=== PATIENT | male | born 1965 | race Two or more races ===

== ENCOUNTER 2017-07-09 11:39 | Inpatient (IN) | payer OTHER ==
[2017-07-09] MEDS ORDERED: SODIUM CHLORIDE 0.9% 1,000 ML IV STA (11:42)
[2017-07-09] MEDS ORDERED: ALBUTEROL NEBULIZED 2.5 MG/3 ML INHALATION STA (11:42)
[2017-07-09] MEDS ORDERED: methylPREDNISolone SOD SUCCI 125 MG/2 ML VIAL IV STA (11:42)
--- NOTE | 2017-07-09 11:53 | ED ---
General Adult HPI - General Chief complaint: Shortness of Breath Stated complaint: Diff Breathing Time Seen by Provider: 07/09/17 11:42 Source: patient, EMS, RN notes reviewed Mode of arrival: EMS Limitations: physical limitation - History of Present Illness Initial comments: 52-year-old male with history of emphysema and current tobacco use presents with a one-week history of cough and congestion. Patient has had a productive cough white sputum. Also subjective chills, patient is additional past medical history of hypertension. He denies chest pain. Patient was given SciMed roll, and DuoNeb by EMS prior to arrival. According to EMS he was hypoxic in the low 80s. Patient denies abdominal pain. Denies chest pain. - Related Data Home Medications Medication Instructions Recorded Confirmed Albuterol Nebulized [Ventolin 2.5 mg INHALATION RT-QID PRN 07/09/17 07/09/17 Nebulized] Aspirin EC [Ecotrin Low Dose] 81 mg PO HS 07/09/17 07/09/17 Atenolol [Tenormin] 100 mg PO BID 07/09/17 07/09/17 Ergocalciferol (Vitamin D2) 50,000 unit PO Q7D 07/09/17 07/09/17 [Vitamin D2] Lisinopril [Zestril] 5 mg PO DAILY 07/09/17 07/09/17 [place]-3 Fatty Acids/Fish Oil [Fish 1 cap PO DAILY 07/09/17 07/09/17 Oil 1,000 mg Softgel] Allergies Allergy/AdvReac Type Severity Reaction Status Date / Time No Known Allergies Allergy Verified 07/09/17 12:58 Review of Systems ROS Statement: Those systems with pertinent positive or pertinent negative responses have been documented in the HPI. ROS Other: All systems not noted in ROS Statement are negative. Past Medical History Past Medical History: COPD, Hypertension History of Any Multi-Drug Resistant Organisms: None Reported Past Surgical History: No Surgical Hx Reported Past Psychological History: No Psychological Hx Reported Smoking Status: Former smoker Past Alcohol Use History: None Reported, Occasional Past Drug Use History: Marijuana General Exam Limitations: physical limitation General appearance: alert, in distress Head exam: Present: atraumatic, normocephalic Eye exam: Present: normal appearance, PERRL ENT exam: Present: normal exam, mucous membranes dry Respiratory exam: Present: respiratory distress, wheezes, accessory muscle use, decreased breath sounds, prolonged expiratory Cardiovascular Exam: Present: normal rhythm, tachycardia GI/Abdominal exam: Present: soft. Absent: distended, tenderness, guarding Extremities exam: Present: normal inspection, normal capillary refill. Absent: pedal edema, calf tenderness Back exam: Present: normal inspection Neurological exam: Present: alert, oriented X3. Absent: motor sensory deficit Psychiatric exam: Present: normal affect, normal mood Skin exam: Present: warm, dry, intact. Absent: cyanosis, diaphoretic Course Vital Signs 07/09/17 07/09/17 07/09/17 11:41 11:49 12:12 Temperature 100.7 F H Pulse Rate 78 69 Respiratory 28 H Rate Blood Pressure 135/89 O2 Sat by Pulse 93 L 92 L Oximetry 07/09/17 07/09/17 12:30 13:22 Temperature 100.5 F H Pulse Rate 70 70 Respiratory 18 Rate Blood Pressure 125/85 O2 Sat by Pulse 91 L Oximetry EKG Findings - EKG Comments: EKG Findings:: EKG shows normal sinus rhythm, ventricular rate 69, DC interval 160, QRS duration 104, QTC 435, no signs of ST segment elevation or depression Medical Decision Making - Medical Decision Making 52-year-old male with history of emphysema presented with a one-week history of worsening cough and difficulty breathing. No chest pain. Patient is in moderate respiratory distress upon arrival. Noted to be febrile. Respiratory rate in the high 20s. Patient has decreased air entry with faint end expiratory wheeze. Chest x-ray is obtained, shows possible pulmonary vascular congestion versus atypical infection, infiltrate the lung bases. White blood cell count is 12.4. Hemoglobin stable. Initial troponin is 0.033, which is less than threshold for normal, however in this patient with no known CAD and elevated BNP, there is concern for new onset heart failure given the pulmonary vascular congestion on chest x-ray. Patient states he did receive a workup for lower extremity swelling approximately one year ago at [facility]. He says at that time there was no sign of heart failure. Troponin level will be trended. Patient is given Lasix and aspirin in the emergency department. EKG is nonischemic. He is also started on antibiotics including azithromycin for atypical pneumonia and COPD exacerbation. He was given nebulized albuterol and Atrovent and degree steroids. Diagnosis: COPD exacerbation, acquired pneumonia, concern for new onset heart failure - Lab Data Result diagrams: 07/09/17 12:00 07/09/17 12:00 Lab Results 07/09/17 07/09/17 07/09/17 Range/Units 12:00 12:00 12:00 WBC 12.4 H (3.8-10.6) k/uL RBC 4.42 (4.30-5.90) m/uL Hgb 14.5 (13.0-17.5) gm/dL Hct 44.2 (39.0-53.0) % MCV 100.0 (80.0-100.0) fL MCH 32.7 (25.0-35.0) pg MCHC 32.7 (31.0-37.0) g/dL RDW 15.8 H (11.5-15.5) % Plt Count 209 (150-450) k/uL Neutrophils % 84 % Lymphocytes % 7 % Monocytes % 7 % Eosinophils % 0 % Basophils % 0 % Neutrophils # 10.4 H (1.3-7.7) k/uL Lymphocytes # 0.9 L (1.0-4.8) k/uL Monocytes # 0.8 (0-1.0) k/uL Eosinophils # 0.0 (0-0.7) k/uL Basophils # 0.0 (0-0.2) k/uL Poikilocytosis Slight Macrocytosis Slight PT (9.0-12.0) sec INR (<1.2) APTT (22.0-30.0) sec Sodium 141 (137-145) mmol/L Potassium 4.8 (3.5-5.1) mmol/L Chloride 104 (98-107) mmol/L Carbon Dioxide 30 (22-30) mmol/L Anion Gap 7 mmol/L BUN 14 (9-20) mg/dL Creatinine 0.60 L (0.66-1.25) mg/dL Est GFR (MDRD) Af Amer >60 (>60 ml/min/1.73 sqM) Est GFR (MDRD) Non-Af >60 (>60 ml/min/1.73 sqM) Glucose 100 H (74-99) mg/dL Calcium 9.3 (8.4-10.2) mg/dL Total Bilirubin 0.8 (0.2-1.3) mg/dL AST 28 (17-59) U/L ALT 55 (21-72) U/L Alkaline Phosphatase 114 (38-126) U/L Total Creatine Kinase 130 (55-170) U/L CK-MB (CK-2) 4.1 H* (0.0-2.4) ng/mL CK-MB (CK-2) Rel Index 3.2 Troponin I 0.033 (0.000-0.034) ng/mL NT-Pro-B Natriuret Pep pg/mL Total Protein 7.2 (6.3-8.2) g/dL Albumin 4.1 (3.5-5.0) g/dL 07/09/17 07/09/17 Range/Units 12:00 12:00 WBC (3.8-10.6) k/uL RBC (4.30-5.90) m/uL Hgb (13.0-17.5) gm/dL Hct (39.0-53.0) % MCV (80.0-100.0) fL MCH (25.0-35.0) pg MCHC (31.0-37.0) g/dL RDW (11.5-15.5) % Plt Count (150-450) k/uL Neutrophils % % Lymphocytes % % Monocytes % % Eosinophils % % Basophils % % Neutrophils # (1.3-7.7) k/uL Lymphocytes # (1.0-4.8) k/uL Monocytes # (0-1.0) k/uL Eosinophils # (0-0.7) k/uL Basophils # (0-0.2) k/uL Poikilocytosis Macrocytosis PT 11.2 (9.0-12.0) sec INR 1.1 (<1.2) APTT 22.7 (22.0-30.0) sec Sodium (137-145) mmol/L Potassium (3.5-5.1) mmol/L Chloride (98-107) mmol/L Carbon Dioxide (22-30) mmol/L Anion Gap mmol/L BUN (9-20) mg/dL Creatinine (0.66-1.25) mg/dL Est GFR (MDRD) Af Amer (>60 ml/min/1.73 sqM) Est GFR (MDRD) Non-Af (>60 ml/min/1.73 sqM) Glucose (74-99) mg/dL Calcium (8.4-10.2) mg/dL Total Bilirubin (0.2-1.3) mg/dL AST (17-59) U/L ALT (21-72) U/L Alkaline Phosphatase (38-126) U/L Total Creatine Kinase (55-170) U/L CK-MB (CK-2) (0.0-2.4) ng/mL CK-MB (CK-2) Rel Index Troponin I (0.000-0.034) ng/mL NT-Pro-B Natriuret Pep 2890 pg/mL Total Protein (6.3-8.2) g/dL Albumin (3.5-5.0) g/dL Disposition Clinical Impression: Congestive heart failure, Acute exacerbation of chronic obstructive airways disease Disposition: ADMITTED IP TO THIS [facility] Condition: Stable Referrals: Jay Quezada DO [Primary Care Provider] - 1-2 days Decision to Admit Reason: Admit from EC Decision Date: 07/09/17 Decision Time: 13:39
[2017-07-09 12:19] LABS: Basophils % (A) 0 %; CH 33.3; CHCM 33.6; Eosinophils % (A) 0 %; HCT 44.2 % (39.0-53.0); HDW 3.85; HGB 14.5 gm/dL (13.0-17.5); Luc # (Auto) 0.18; Luc % (Auto) 2; Lymphocytes # (A) 0.9 k/uL (1.0-4.8); Lymphocytes % (A) 7 %; MCH 32.7 pg (25.0-35.0); MCHC 32.7 g/dL (31.0-37.0); Macrocytosis Slight; Mean Platelet Volume 8.2; Monocytes # (A) 0.8 k/uL (0-1.0); Monocytes % (A) 7 %; Neutrophils # (A) 10.4 k/uL (1.3-7.7); Neutrophils % (A) 84 %; Poikilocytosis Slight; RBC 4.42 m/uL (4.30-5.90); RDW 15.8 % (11.5-15.5); WBC 12.4 k/uL (3.8-10.6); WBC (Perox) 12.42
[2017-07-09 12:32] LABS: ALT 55 U/L (21-72); AST 28 U/L (17-59); Alkaline Phosphatase 114 U/L (38-126); Anion Gap 7 mmol/L; Blood Urea Nitrogen 14 mg/dL (9-20); Calcium 9.3 mg/dL (8.4-10.2); Carbon Dioxide 30 mmol/L (22-30); Chloride 104 mmol/L (98-107); Glucose 100 mg/dL (74-99); Non-African American GFR(MDRD) >60 (>60 ml/min/1.73 sqM); Potassium 4.8 mmol/L (3.5-5.1); Sodium 141 mmol/L (137-145); Total Bilirubin 0.8 mg/dL (0.2-1.3); Total Protein 7.2 g/dL (6.3-8.2)
--- NOTE | 2017-07-09 12:58 | XR ---
EXAMINATION TYPE: XR chest 2V DATE OF EXAM: 07/09/2017 COMPARISON: NONE TECHNIQUE: PA and lateral views submitted. HISTORY: Shortness of breath FINDINGS: Central interstitial pattern seen. Subsegmental changes at the lung bases with tiny effusion. No pneu mothorax. Heart size and prominent. Underlying COPD suggested. IMPRESSION: 1. Cardiomegaly correlate for COPD. 2. Subsegmental atelectasis or early infiltrate lung bases with tiny effusions. Mild central intersti tial edema or pneumonitis in the differential diagnosis. Opportunistic or atypical infection also in the differential diagnosis.
[2017-07-09 13:03] LABS: INR 1.1 (<1.2); Partial Thromboplastin Time 22.7 sec (22.0-30.0); Prothrombin Time 11.2 sec (9.0-12.0)
[2017-07-09 13:04] LABS: Troponin I 0.033 ng/mL (0.000-0.034)
[2017-07-09 13:10] LABS: Creatine Kinase MB 4.1 ng/mL (0.0-2.4)
[2017-07-09] MEDS ORDERED: ASPIRIN 325 MG TAB PO STA (13:17)
[2017-07-09] MEDS ORDERED: FUROSEMIDE 10 MG/ML 2 ML VIAL IV ONE (13:17)
[2017-07-09] MEDS ORDERED: ONDANSETRON 4 MG/2 ML VIAL IVP PRN (13:32)
[2017-07-09] MEDS ORDERED: NALOXONE 0.4 MG/ML 1 ML VIAL IV PRN (13:32)
[2017-07-09] MEDS ORDERED: AZITHROMYCIN 500 MG in SODIUM CHLORIDE 0.9% 250 ML IVPB STA (13:38)
[2017-07-09] MEDS: ACETAMINOPHEN TAB 325 MG TAB PO PRN (15:38)
[2017-07-09] MEDS: IPRATROPIUM-ALBUTEROL 3 ML NEB INHALATION PRN ×2 (16:57→20:11)
[2017-07-09 18:53] LABS: Troponin I 0.014 ng/mL (0.000-0.034)
[2017-07-09 18:55] LABS: Creatine Kinase MB 3.6 ng/mL (0.0-2.4)
[2017-07-10 00:24] LABS: Creatine Kinase 114 U/L (55-170)
[2017-07-10 00:37] LABS: Troponin I <0.012 ng/mL (0.000-0.034)
--- NOTE | 2017-07-10 00:44 | P.HPIM ---
History of Present Illness H&P Date: 07/09/17 Chief Complaint: Shortness of breath 52-year-old male with history of emphysema, hypertension and current tobacco use presents with a one-week history of cough and congestion. Patient has had a productive cough white sputum. Also subjective chills. He denies chest pain. Patient was given Solu-Medrol, and DuoNeb by EMS prior to arrival. According to EMS he was hypoxic in the low 80s. Patient denies abdominal pain. No nausea or vomiting. No recent travel or sick contacts. Patient denied any history of heart problems. But he did mention that he was given Lasix for lung condition at [facility]. Patient continued to smoke 1 pack per day. Chest x-ray in the emergency room showed COPD changes and bibasilar atelectasis and tiny effusion BNP 2890 Troponin 0.033 Patient is given a dose of Lasix in the ER and IV Solu-Medrol and duo nebs. Review of Systems CONSTITUTIONAL: Subjective fever, no malaise, no fatigue. HEENT: No recent visual problems or hearing problems. Denied any sore throat. CARDIOVASCULAR: No chest pain, orthopnea, PND, no palpitations, no syncope. PULMONARY: , Cough with whitish production and short of breath. no hemoptysis. GASTROINTESTINAL: No diarrhea, no nausea, no vomiting, no abdominal pain. Normoactive bowel sounds. NEUROLOGICAL: No headaches, no weakness, no numbness. HEMATOLOGICAL: Denies any bleeding or petechiae. GENITOURINARY: Denies any burning micturition, frequency, or urgency. MUSCULOSKELETAL/RHEUMATOLOGICAL: Denies any joint pain, swelling, or any muscle pain. ENDOCRINE: Denies any polyuria or polydipsia. The rest of the 14-point review of systems is negative. Past Medical History Past Medical History: COPD, Hypertension Additional Past Medical History / Comment(s): Pt states about 1 yr ago he had "water retention in my legs." He states he was seen at [facility] and was on lasix for awhile. Pt recently started using O2 at 2L/NC ATC. History of Any Multi-Drug Resistant Organisms: None Reported Past Surgical History: No Surgical Hx Reported Past Anesthesia/Blood Transfusion Reactions: Unable to Obtain Additional Past Anesthesia/Blood Transfusion Reaction / Comment(s): Pt has never had anesthesia. Smoking Status: Former smoker - Past Family History Mother Family Medical History: No Reported History Additional Family Medical History / Comment(s): Mother is healthy and is 75yrs old. Father Family Medical History: Vascular Disorder Additional Family Medical History / Comment(s): Father at the age of 60yrs a couple days after vascular surgery. Medications and Allergies Home Medications Medication Instructions Recorded Confirmed Type Albuterol Nebulized [Ventolin 2.5 mg INHALATION RT-QID PRN 07/09/17 07/09/17 History Nebulized] Ascorbic Acid [Vitamin C] 500 mg PO BID 07/09/17 07/09/17 History Aspirin EC [Ecotrin Low Dose] 81 mg PO HS 07/09/17 07/09/17 History Atenolol [Tenormin] 100 mg PO BID 07/09/17 07/09/17 History Cholecalciferol [Vitamin D3] 5,000 unit PO DAILY 07/09/17 07/09/17 History Cyanocobalamin (Vitamin B-12) 1,000 mcg PO DAILY 07/09/17 07/09/17 History [Vitamin B-12] Ergocalciferol (Vitamin D2) 50,000 unit PO WE 07/09/17 07/09/17 History [Vitamin D2] Lisinopril [Zestril] 5 mg PO DAILY 07/09/17 07/09/17 History Magnesium Oxide [Mag-Ox] 250 mg PO HS 07/09/17 07/09/17 History [place]-3 Fatty Acids/Fish Oil [Fish 1 cap PO DAILY 07/09/17 07/09/17 History Oil 1,000 mg Softgel] Allergies Allergy/AdvReac Type Severity Reaction Status Date / Time No Known Allergies Allergy Verified 07/09/17 12:58 Physical Exam Vitals: Vital Signs Temp Pulse Resp BP Pulse Ox 07/09/17 22:16 99.8 F H 73 18 125/84 93 L 07/09/17 20:22 88 18 150/58 97 07/09/17 20:11 88 07/09/17 19:24 99.1 F 92 18 133/60 92 L 07/09/17 18:10 99.2 F 82 18 154/92 92 L 07/09/17 17:08 74 07/09/17 16:57 72 07/09/17 15:36 100.6 F H 71 20 143/64 90 L 07/09/17 14:30 80 18 140/85 91 L 07/09/17 13:22 100.5 F H 70 18 125/85 91 L 07/09/17 12:30 70 07/09/17 12:12 69 07/09/17 11:49 92 L 07/09/17 11:41 100.7 F H 78 28 H 135/89 93 L Intake and Output 07/09/17 07/09/17 07/09/17 06:59 14:59 22:59 Output Total 1025 Balance -1025 Output: Urine 1025 Other: Weight 106.594 kg Patient Weight 07/10/17 06:59 Weight 106.594 kg PHYSICAL EXAMINATION: Patient is lying in the bed comfortably, mild distress, awake alert and oriented.. HEENT: Normocephalic. Neck is supple. Pupils reactive. Nostrils clear. Oral cavity is moist. Ears reveal no drainage. Neck reveals no JVD, carotid bruits, or thyromegaly. CHEST EXAMINATION: Trachea is central. Symmetrical expansion. Bilateral air entry diminished with diffuse wheezing and rhonchi. CARDIAC: Normal S1, S2 with no gallops. No murmurs ABDOMEN: Soft. Bowel sounds normal. Obese. No organomegaly. No abdominal bruits. Extremities 1+ edema. No clubbing or cyanosis Neurologically awake, alert, oriented x3 with well-coordinated movements. Skin: no rash or skin lesions Musculoskeletal: no joint swelling or deformity. Results CBC & Chem 7: 07/09/17 12:00 07/09/17 12:00 Labs: Abnormal Lab Results - Last 24 Hours (Table) 07/09/17 07/09/17 07/09/17 Range/Units 12:00 12:00 12:00 WBC 12.4 H (3.8-10.6) k/uL RDW 15.8 H (11.5-15.5) % Neutrophils # 10.4 H (1.3-7.7) k/uL Lymphocytes # 0.9 L (1.0-4.8) k/uL Creatinine 0.60 L (0.66-1.25) mg/dL Glucose 100 H (74-99) mg/dL CK-MB (CK-2) 4.1 H* (0.0-2.4) ng/mL 07/09/17 Range/Units 18:04 WBC (3.8-10.6) k/uL RDW (11.5-15.5) % Neutrophils # (1.3-7.7) k/uL Lymphocytes # (1.0-4.8) k/uL Creatinine (0.66-1.25) mg/dL Glucose (74-99) mg/dL CK-MB (CK-2) 3.6 H* (0.0-2.4) ng/mL Thrombosis Risk Factor Assmnt - DVT/VTE Prophylaxis DVT/VTE Prophylaxis: Pharmacologic Prophylaxis ordered - Choose All That Apply Any of the Below Risk Factors Present?: Yes Each Factor Represents 1 point: Abnormal pulmonary function (COPD), Age 41-60 years, Heart failure (<1month), Obesity (BMI >25), Serious lung disease incl. pneumonia (< 1month) Other Risk Factors: No Other congenital or acquired thrombophilia - If yes, enter type in comment: No Thrombosis Risk Factor Assessment Total Risk Factor Score: 5 Thrombosis Risk Factor Assessment Level: High Risk Assessment and Plan Plan: #1 acute COPD exacerbation #2 acute tracheobronchitis #2 nicotine addiction. counseled extensively #3 elevated BNP with possible acute CHF. Unknown ejection fraction #4 morbid obesity with BMI 35.7 #5 DVT prophylaxis Plan: Patient will be continued on antibiotics breathing treatments and prednisone by mouth. Will get 2-D echocardiogram and follow closely. Further recommendations based on the clinical course. Patient was counseled extensively for smoking cessation. Time with Patient: Greater than 30
[2017-07-10 00:48] LABS: Creatine Kinase MB 3.6 ng/mL (0.0-2.4)
[2017-07-10 06:44] LABS: Anisocytosis Slight; Basophils % (A) 0 %; CH 32.9; CHCM 32.3; Eosinophils % (A) 0 %; HCT 44.7 % (39.0-53.0); HDW 3.87; HGB 14.2 gm/dL (13.0-17.5); Hypochromasia Slight; Luc # (Auto) 0.21; Luc % (Auto) 2; Lymphocytes # (A) 0.9 k/uL (1.0-4.8); Lymphocytes % (A) 6 %; MCH 32.6 pg (25.0-35.0); MCHC 31.7 g/dL (31.0-37.0); MCV 102.9 fL (80.0-100.0); Macrocytosis Slight; Mean Platelet Volume 8.3; Monocytes # (A) 1.1 k/uL (0-1.0); Monocytes % (A) 8 %; Neutrophils # (A) 11.7 k/uL (1.3-7.7); Neutrophils % (A) 84 %; Poikilocytosis Slight; RBC 4.34 m/uL (4.30-5.90); WBC 13.9 k/uL (3.8-10.6); WBC (Perox) 14.01
[2017-07-10 07:38] LABS: ALT 48 U/L (21-72); AST 37 U/L (17-59); Alkaline Phosphatase 111 U/L (38-126); Anion Gap 10 mmol/L; Blood Urea Nitrogen 22 mg/dL (9-20); Calcium 9.8 mg/dL (8.4-10.2); Carbon Dioxide 29 mmol/L (22-30); Chloride 105 mmol/L (98-107); Glucose 129 mg/dL (74-99); Non-African American GFR(MDRD) >60 (>60 ml/min/1.73 sqM); Potassium 5.7 mmol/L (3.5-5.1); Sodium 144 mmol/L (137-145); Total Bilirubin 0.7 mg/dL (0.2-1.3); Total Protein 7.5 g/dL (6.3-8.2)
[2017-07-10] MEDS: IPRATROPIUM-ALBUTEROL 3 ML NEB INHALATION PRN (09:09)
--- NOTE | 2017-07-10 09:17 | P.CRDCN ---
History of Present Illness Consult date: 07/10/17 Chief complaint: Shortness of breath History of present illness: This is a pleasant 52-year-old gentleman with a past medical history significant for obesity, hypertension, and COPD presented to the hospital complaining of shortness of breath. The patient describes symptoms of exertional dyspnea as well as orthopnea. He also developed bilateral lower extremities edema. Over the last few days he has been experiencing cough productive of sputum. No fever and no chills. The patient is not aware of any prior cardiac history but he stated that he was admitted to [facility] over a year with symptoms of congestive heart failure. He has extensive history of smoking and he smoke one pack per day. The EKG showed sinus rhythm without any significant ST or T-wave abnormalities. The cardiac enzymes were checked and came in to be unremarkable. The BNP came in to be alleviated. The chest x-ray showed finding consistent with chronic changes as well as some vascular congestions. On physical examination the patient has extensive expiratory wheezing Past Medical History Past Medical History: COPD, Hypertension Additional Past Medical History / Comment(s): Pt states about 1 yr ago he had "water retention in my legs." He states he was seen at [facility] and was on lasix for awhile. Pt recently started using O2 at 2L/NC ATC. History of Any Multi-Drug Resistant Organisms: None Reported Past Surgical History: No Surgical Hx Reported Past Anesthesia/Blood Transfusion Reactions: Unable to Obtain Additional Past Anesthesia/Blood Transfusion Reaction / Comment(s): Pt has never had anesthesia. Smoking Status: Former smoker - Past Family History Mother Family Medical History: No Reported History Additional Family Medical History / Comment(s): Mother is healthy and is 75yrs old. Father Family Medical History: Vascular Disorder Additional Family Medical History / Comment(s): Father at the age of 60yrs a couple days after vascular surgery. Medications and Allergies Home Medications Medication Instructions Recorded Confirmed Type Albuterol Nebulized [Ventolin 2.5 mg INHALATION RT-QID PRN 07/09/17 07/09/17 History Nebulized] Ascorbic Acid [Vitamin C] 500 mg PO BID 07/09/17 07/09/17 History Aspirin EC [Ecotrin Low Dose] 81 mg PO HS 07/09/17 07/09/17 History Atenolol [Tenormin] 100 mg PO BID 07/09/17 07/09/17 History Cholecalciferol [Vitamin D3] 5,000 unit PO DAILY 07/09/17 07/09/17 History Cyanocobalamin (Vitamin B-12) 1,000 mcg PO DAILY 07/09/17 07/09/17 History [Vitamin B-12] Ergocalciferol (Vitamin D2) 50,000 unit PO WE 07/09/17 07/09/17 History [Vitamin D2] Lisinopril [Zestril] 5 mg PO DAILY 07/09/17 07/09/17 History Magnesium Oxide [Mag-Ox] 250 mg PO HS 07/09/17 07/09/17 History [place]-3 Fatty Acids/Fish Oil [Fish 1 cap PO DAILY 07/09/17 07/09/17 History Oil 1,000 mg Softgel] Allergies Allergy/AdvReac Type Severity Reaction Status Date / Time No Known Allergies Allergy Verified 07/09/17 12:58 Physical Exam Vitals: Vital Signs Temp Pulse Pulse Resp BP BP Pulse Ox 07/10/17 08:00 97.5 F L 83 139/71 88 L 07/10/17 04:00 98.2 F 76 18 146/70 91 L 07/09/17 23:57 98.1 F 85 20 151/75 90 L 07/09/17 22:16 99.8 F H 73 18 125/84 93 L 07/09/17 20:22 88 18 150/58 97 07/09/17 20:11 88 07/09/17 19:24 99.1 F 92 18 133/60 92 L 07/09/17 18:10 99.2 F 82 18 154/92 92 L 07/09/17 17:08 74 07/09/17 16:57 72 07/09/17 15:36 100.6 F H 71 20 143/64 90 L 07/09/17 14:30 80 18 140/85 91 L 07/09/17 13:22 100.5 F H 70 18 125/85 91 L 07/09/17 12:30 70 07/09/17 12:12 69 07/09/17 11:49 92 L 07/09/17 11:41 100.7 F H 78 28 H 135/89 93 L Intake and Output 07/09/17 07/10/17 07/10/17 22:59 06:59 14:59 Intake Total 400 236 Output Total 1025 Balance -1025 400 236 Intake: IV 400 Sodium Chloride 0.9% 1, 400 000 ml @ 50 mls/hr IV . Q20H STA Rx#:[id number] Oral 236 Output: Urine 1025 Other: Weight 108 kg - Constitutional General appearance: no acute distress - Respiratory Respiratory: bilateral: wheezing - Cardiovascular Rhythm: regular Heart sounds: normal: S1, S2 Results 07/10/17 06:08 07/10/17 07:10 Cardiac Enzymes 07/09/17 07/09/17 07/09/17 Range/Units 12:00 12:00 18:04 AST 28 (17-59) U/L CK-MB (CK-2) 4.1 H* 3.6 H* (0.0-2.4) ng/mL Troponin I 0.033 0.014 (0.000-0.034) ng/mL 07/09/17 07/10/17 Range/Units 23:47 07:10 AST 37 (17-59) U/L CK-MB (CK-2) 3.6 H* (0.0-2.4) ng/mL Troponin I <0.012 (0.000-0.034) ng/mL Coagulation 07/09/17 Range/Units 12:00 PT 11.2 (9.0-12.0) sec APTT 22.7 (22.0-30.0) sec CBC 07/09/17 07/10/17 Range/Units 12:00 06:08 WBC 12.4 H 13.9 H (3.8-10.6) k/uL RBC 4.42 4.34 (4.30-5.90) m/uL Hgb 14.5 14.2 (13.0-17.5) gm/dL Hct 44.2 44.7 (39.0-53.0) % Plt Count 209 202 (150-450) k/uL Comprehensive Metabolic Panel 07/09/17 07/10/17 Range/Units 12:00 07:10 Sodium 141 144 (137-145) mmol/L Potassium 4.8 5.7 H (3.5-5.1) mmol/L Chloride 104 105 (98-107) mmol/L Carbon Dioxide 30 29 (22-30) mmol/L BUN 14 22 H (9-20) mg/dL Creatinine 0.60 L 0.69 (0.66-1.25) mg/dL Glucose 100 H 129 H (74-99) mg/dL Calcium 9.3 9.8 (8.4-10.2) mg/dL AST 28 37 (17-59) U/L ALT 55 48 (21-72) U/L Alkaline Phosphatase 114 111 (38-126) U/L Total Protein 7.2 7.5 (6.3-8.2) g/dL Albumin 4.1 4.3 (3.5-5.0) g/dL Current Medications Generic Name Dose Route Start Last Admin Trade Name Freq PRN Reason Stop Dose Admin Acetaminophen 650 mg 07/09/17 13:32 07/09/17 15:38 Tylenol Tab PO 650 mg Q6HR PRN Administration Mild Pain or Fever > 100.5 Albuterol/Ipratropium 3 ml 07/09/17 13:32 07/10/17 09:09 Duoneb 0.5 Mg-3 Mg/3 Ml Soln INHALATION 3 ml RT-Q4H PRN Administration Shortness Of Breath Or Wheezing Azithromycin 500 mg/ Sodium 250 mls @ 125 mls/hr 07/10/17 12:00 Chloride IVPB DAILY@1200 JACQUE Ceftriaxone Sodium 1,000 mg/ 50 mls @ 100 mls/hr 07/10/17 09:00 07/10/17 09: 01 Sodium Chloride IVPB 100 mls/hr Q24HR JACQUE Administration Naloxone HCl 0.2 mg 07/09/17 13:32 Narcan IV Q2M PRN Opioid Reversal Ondansetron HCl 4 mg 07/09/17 13:32 Zofran IVP Q8HR PRN Nausea And Vomiting Prednisone 40 mg 07/10/17 09:00 PO DAILY JACQUE Intake and Output 07/09/17 07/10/17 07/10/17 22:59 06:59 14:59 Intake Total 400 236 Output Total 1025 Balance -1025 400 236 Intake: IV 400 Sodium Chloride 0.9% 1, 400 000 ml @ 50 mls/hr IV . Q20H STA Rx#:[id number] Oral 236 Output: Urine 1025 Other: Weight 108 kg 07/10/17 06:08 07/10/17 07:10 Assessment and Plan Plan: This is a pleasant 52-year-old gentleman hypertension as OB the as well as significant history of smoking who was admitted to the hospital was acute respiratory failure. I do feel that the patient has a component of congestive heart failure in addition to COPD exacerbation. I will start the patient on IV diuretics. One end of the kidney function and electrolytes. Beside that I will obtain an echocardiogram was Doppler to assess the LV function. We'll check the TSH. Continue following up with him.
[2017-07-10] MEDS: predniSONE 20 MG TAB PO SCH (12:59)
[2017-07-10] MEDS: ATENOLOL 50 MG TAB PO SCH ×2 (13:00→19:53)
[2017-07-10] MEDS: LISINOPRIL 5 MG TAB PO SCH (13:00)
[2017-07-10] MEDS: NICOTINE 21MG/24HR PATCH TRANSDERM SCH (13:00)
[2017-07-10] MEDS: AZITHROMYCIN 500 MG in SODIUM CHLORIDE 0.9% 250 ML IVPB SCH (13:01)
[2017-07-10] MEDS: guaiFENesin-DM 100-10MG/5ML 10 ML CUP PO PRN (14:00)
[2017-07-10] MEDS: ALBUTEROL NEBULIZED 2.5 MG/3 ML INHALATION SCH ×2 (15:32→20:44)
[2017-07-10] MEDS: FUROSEMIDE 10 MG/ML 4 ML VIAL IV SCH (19:53)
[2017-07-10] MEDS: ASPIRIN 81 MG PO SCH (19:53)
[2017-07-10] MEDS: ACETAMINOPHEN TAB 325 MG TAB PO PRN (19:56)
--- NOTE | 2017-07-10 23:34 | P.PN ---
Subjective Principal diagnosis: Acute COPD exacerbation 52-year-old male with history of emphysema, hypertension and current tobacco use presents with a one-week history of cough and congestion. Patient has had a productive cough white sputum. Also subjective chills. He denies chest pain. Patient was given Solu-Medrol, and DuoNeb by EMS prior to arrival. According to EMS he was hypoxic in the low 80s. Patient denies abdominal pain. No nausea or vomiting. No recent travel or sick contacts. Patient denied any history of heart problems. But he did mention that he was given Lasix for lung condition at [facility]. Patient continued to smoke 1 pack per day. Chest x-ray in the emergency room showed COPD changes and bibasilar atelectasis and tiny effusion BNP 2890 Troponin 0.033 Patient is given a dose of Lasix in the ER and IV Solu-Medrol and duo nebs. 07/10/2017 Patient's breathing status improved but still having diffuse wheezing. Patient was started on Lasix 40 mg twice daily. TTE was ordered. No complaints of chest pain. Patient is being continued on prednisone 40 mg daily along with breathing treatments. Current medications reviewed Objective - Vital Signs Vital signs: Vital Signs Temp 97.9 F 07/10/17 20:00 Pulse 76 07/10/17 20:54 Resp 20 07/10/17 20:00 BP 138/80 07/10/17 20:00 Pulse Ox 94 L 07/10/17 16:00 Intake & Output 07/10/17 07/10/17 07/11/17 06:59 18:59 06:59 Intake Total 400 1236 Output Total 325 Balance 75 1236 Weight 108 kg Intake: IV 400 200 Sodium Chloride 0.9% 1, 400 200 000 ml @ 50 mls/hr IV . Q20H STA Rx#:[id number] Intake, IV Titration 100 Amount cefTRIAXone 1,000 mg In 100 Sodium Chloride 0.9% 50 ml @ 100 mls/hr IVPB Q24HR JACQUE Rx#:[id number] Oral 936 Output: Urine 325 - Exam PHYSICAL EXAMINATION: Patient is lying in the bed comfortably, no acute distress, awake alert and oriented.. HEENT: Normocephalic. Neck is supple. Pupils reactive. Nostrils clear. Oral cavity is moist. Ears reveal no drainage. Neck reveals no JVD, carotid bruits, or thyromegaly. CHEST EXAMINATION: Trachea is central. Symmetrical expansion. Bilateral diffuse wheezing and rhonchi positive CARDIAC: Normal S1, S2 with no gallops. No murmurs ABDOMEN: Soft. Bowel sounds normal. No organomegaly. No abdominal bruits. Extremities trace edema. No clubbing or cyanosis Neurologically awake, alert, oriented x3 with well-coordinated movements. Skin: no rash or skin lesions Musculoskeletal: no joint swelling or deformity. - Labs CBC & Chem 7: 07/10/17 06:08 07/10/17 07:10 Labs: Abnormal Lab Results - Last 24 Hours (Table) 07/09/17 07/10/17 07/10/17 Range/Units 23:47 06:08 07:10 WBC 13.9 H (3.8-10.6) k/uL MCV 102.9 H (80.0-100.0) fL RDW 16.0 H (11.5-15.5) % Neutrophils # 11.7 H (1.3-7.7) k/uL Lymphocytes # 0.9 L (1.0-4.8) k/uL Monocytes # 1.1 H (0-1.0) k/uL Potassium 5.7 H (3.5-5.1) mmol/L BUN 22 H (9-20) mg/dL Glucose 129 H (74-99) mg/dL CK-MB (CK-2) 3.6 H* (0.0-2.4) ng/mL TSH (0.465-4.680) mIU/L 07/10/17 Range/Units 07:10 WBC (3.8-10.6) k/uL MCV (80.0-100.0) fL RDW (11.5-15.5) % Neutrophils # (1.3-7.7) k/uL Lymphocytes # (1.0-4.8) k/uL Monocytes # (0-1.0) k/uL Potassium (3.5-5.1) mmol/L BUN (9-20) mg/dL Glucose (74-99) mg/dL CK-MB (CK-2) (0.0-2.4) ng/mL TSH 0.295 L (0.465-4.680) mIU/L Assessment and Plan Plan: #1 acute COPD exacerbation #2 acute tracheobronchitis #2 nicotine addiction. counseled extensively #3 elevated BNP with possible acute CHF. Unknown ejection fraction. TTE pending #4 morbid obesity with BMI 35.7 #5 DVT prophylaxis Plan: Patient will be continued on antibiotics breathing treatments and prednisone by mouth. Continue with Lasix 40 mg every 12. Cardiology is following. Further recommendations based on the clinical course. Patient was counseled extensively for smoking cessation. Time with Patient: Greater than 30
[2017-07-10] MEDS: HEPARIN SODIUM,PORCINE 5,000 UNIT/ML 1 ML VIAL SQ SCH (23:46)
[2017-07-11] MEDS: guaiFENesin-DM 100-10MG/5ML 10 ML CUP PO PRN (03:03)
[2017-07-11 06:50] LABS: Basophils # (A) 0.1 k/uL (0-0.2); Basophils % (A) 0 %; CH 32.2; CHCM 30.7; Eosinophils % (A) 0 %; HCT 49.5 % (39.0-53.0); HDW 3.84; HGB 15.3 gm/dL (13.0-17.5); Hypochromasia Marked; Luc # (Auto) 0.36; Luc % (Auto) 2; Lymphocytes # (A) 2.4 k/uL (1.0-4.8); Lymphocytes % (A) 15 %; MCH 32.6 pg (25.0-35.0); MCHC 30.8 g/dL (31.0-37.0); MCV 105.8 fL (80.0-100.0); Macrocytosis Moderate; Mean Platelet Volume 7.4; Monocytes # (A) 1.2 k/uL (0-1.0); Monocytes % (A) 7 %; Neutrophils # (A) 12.4 k/uL (1.3-7.7); Neutrophils % (A) 76 %; Poikilocytosis Slight; RBC 4.68 m/uL (4.30-5.90); RDW 15.2 % (11.5-15.5); WBC 16.5 k/uL (3.8-10.6); WBC (Perox) 16.71
[2017-07-11 07:02] LABS: Anion Gap 8 mmol/L; Blood Urea Nitrogen 24 mg/dL (9-20); Calcium 9.8 mg/dL (8.4-10.2); Carbon Dioxide 33 mmol/L (22-30); Chloride 99 mmol/L (98-107); Glucose 85 mg/dL (74-99); Non-African American GFR(MDRD) >60 (>60 ml/min/1.73 sqM); Sodium 140 mmol/L (137-145)
[2017-07-11 07:11] LABS: Potassium 4.9 mmol/L (3.5-5.1)
[2017-07-11] MEDS: ALBUTEROL NEBULIZED 2.5 MG/3 ML INHALATION SCH ×4 (07:42→19:49)
[2017-07-11] MEDS: ATENOLOL 50 MG TAB PO SCH ×2 (09:26→20:32)
[2017-07-11] MEDS: HEPARIN SODIUM,PORCINE 5,000 UNIT/ML 1 ML VIAL SQ SCH ×2 (09:26→18:50)
[2017-07-11] MEDS: LISINOPRIL 5 MG TAB PO SCH (09:28)
[2017-07-11] MEDS: FUROSEMIDE 10 MG/ML 4 ML VIAL IV SCH ×2 (09:28→20:32)
[2017-07-11] MEDS: predniSONE 20 MG TAB PO SCH (09:29)
[2017-07-11] MEDS: NICOTINE 21MG/24HR PATCH TRANSDERM SCH (09:29)
--- NOTE | 2017-07-11 09:46 | P.PN ---
Subjective Principal diagnosis: Acute respiratory failure This is a pleasant 52-year-old gentleman with a past medical history significant for obesity, hypertension, and COPD presented to the hospital complaining of shortness of breath. The patient describes symptoms of exertional dyspnea as well as orthopnea. He also developed bilateral lower extremities edema. Over the last few days he has been experiencing cough productive of sputum. No fever and no chills. The patient is not aware of any prior cardiac history but he stated that he was admitted to [facility] over a year with symptoms of congestive heart failure. He has extensive history of smoking and he smoke one pack per day. The EKG showed sinus rhythm without any significant ST or T-wave abnormalities. The cardiac enzymes were checked and came in to be unremarkable. The BNP came in to be alleviated. The chest x-ray showed finding consistent with chronic changes as well as some vascular congestions. On physical examination the patient has extensive expiratory wheezing On follow-up with the patient today on 07/11/2017, the patient is feeling better indeterminable shortness of breath. He continues to have bilateral expiratory wheezing. He continues to be on diuretics IV. He lost 2 kg. The echocardiogram still pending. Objective - Vital Signs Vital signs: Vital Signs Temp 97.6 F 07/11/17 04:00 Pulse 96 07/11/17 07:51 Resp 18 07/11/17 04:00 BP 125/63 07/11/17 04:00 Pulse Ox 94 L 07/11/17 07:45 Intake & Output 07/10/17 07/11/17 07/11/17 18:59 06:59 18:59 Intake Total 1236 280 237 Output Total 400 Balance 1236 280 -163 Weight 106.5 kg Intake: IV 200 280 Sodium Chloride 0.9% 1, 200 280 000 ml @ 50 mls/hr IV . Q20H STA Rx#:[id number] Intake, IV Titration 100 Amount cefTRIAXone 1,000 mg In 100 Sodium Chloride 0.9% 50 ml @ 100 mls/hr IVPB Q24HR JACQUE Rx#:[id number] Oral 936 237 Output: Urine 400 - Constitutional General appearance: Present: no acute distress - Respiratory Respiratory: bilateral: wheezing - Cardiovascular Rhythm: regular Heart sounds: normal: S1, S2 - Labs CBC & Chem 7: 07/11/17 05:51 09/22/17 05:51 Labs: Abnormal Lab Results - Last 24 Hours (Table) 07/10/17 07/11/17 07/11/17 Range/Units 07:10 05:51 05:51 WBC 16.5 H (3.8-10.6) k/uL MCV 105.8 H (80.0-100.0) fL MCHC 30.8 L (31.0-37.0) g/dL Neutrophils # 12.4 H (1.3-7.7) k/uL Monocytes # 1.2 H (0-1.0) k/uL Carbon Dioxide 33 H (22-30) mmol/L BUN 24 H (9-20) mg/dL TSH 0.295 L (0.465-4.680) mIU/L Assessment and Plan Plan: This is a pleasant 52-year-old gentleman hypertension as OB the as well as significant history of smoking who was admitted to the hospital was acute respiratory failure. I do feel that the patient has a component of congestive heart failure in addition to COPD exacerbation. We will continue IV diuretics. Continue monitor the kidney function and electrolytes. On follow-up on the echocardiogram.
--- NOTE | 2017-07-11 11:00 | CDI ---
In responding to this query, please exercise your independent professional judgment. The [facility] Coding Staff and Clinical Documentation Specialists appreciate your assistance in clarifying documentation, maintaining compliance with coding guidelines, accurately documenting patients condition and capturing severity of illness. The fact that a question is asked does not imply that any particular answer is desired or expected. Communication forms are a method of clarifying documentation and are not made part of the Legal Health Record. Thank you in advance for your clarification. Last Revision, December 2015 Roberto Dinero [address] [place] [address] Documentation Clarification Form Date: 07/11/2017 10:18:00 AM From: Valorie Peterson Admit Date: 07/09/2017 1:32:00 PM Patient Name: Basilio Disla Visit Number: [id number] Discharge Date: Dr. Ankur Champagne The patient presented with one week history of cough and congestion difficulty in breathing. Nursing notes on 07/11/17 @ 06:09: Patient O2 sats 79 % on RA. Patient knocked O2 off while asleep approx. 20 minutes. Recovery time of approx. 3 min, 92 % 5/ L NC History/Risk Factors: COPD, Hypertension Tobacco use: Former smoker, Clinical Indicators: On admission in ED respiratory exam has present: respiratory distress, wheezes, accessory muscle use, decreased breath sounds, prolonged expiratory. EMS notes on prior arrival patient was hypoxic with low O2 80;s, Vital signs/Pulse oximetry: 135/89 78 28 100.7 93 % 4/L NC 9/1 % 4/L NC, 90 % 5 /L NC, 94 %, 5/L NC Chest x-ray: Cardiomegaly correlate for COPD, Subsegmental atelectasis or early infiltrate lung bases with tiny effusions mild central interstitial edema or pneumonititis. Lung/Breathing assessment: bilateral expiratory wheezing Treatment: Breathing TX per orders Monitor O2 Sat's (titrate) Azithromycin IV Rocephine IV Lasix IV Prednisone PO In your professional opinion, can you please clarify if these findings signify one of the following conditions? Acuity: o Acute o Chronic o Acute on Chronic Respiratory Status: o Respiratory failure o Respiratory failure with hypercapnia o Respiratory failure with hypoxia o Acute Respiratory Distress o Other Diagnosis, please specify o Unable to determine Please document in your progress notes and discharge summary in order to capture severity of illness and risk of mortality. Include clinical findings that support your diagnosis. FYI: Press F11 to launch patient chart. Place X here if this finding has no clinical significance, is not applicable or if you are not able to provide any additional documentation. TORIBIO
[2017-07-11] MEDS: ASPIRIN 81 MG PO SCH (20:32)
--- NOTE | 2017-07-11 21:46 | ECHOF ---
Referral Reason: MEASUREMENTS -------- HEIGHT: 172.7 cm WEIGHT: 108.0 kg BP: 139/71 RVIDd: 3.9 cm (< 3.3) IVSd: 1.4 cm (0.6 - 1.1) LVIDd: 4.3 cm (3.9 - 5.3) LVPWd: 1.3 cm (0.6 - 1.1) IVSs: 2.2 cm LVIDs: 2.6 cm LVPWs: 1.8 cm LA Diam: 3.8 cm (2.7 - 3.8) LAESV Index (A-L): 37.68 ml/m Ao Diam: 3.6 cm (2.0 - 3.7) AV Cusp: 2.4 cm (1.5 - 2.6) MV EXCURSION: 16.312 mm (> 18.000) MV EF SLOPE: 101 mm/s (70 - 150) EPSS: 0.2 cm MV E Jose: 1.16 m/s MV DecT: 219 ms MV A Jose: 0.86 m/s MV E/A Ratio: 1.35 AV maxP.73 mmHg AV meanP.31 mmHg RAP: 5.00 mmHg RVSP: 43.49 mmHg FINDINGS -------- Sinus rhythm. This was a technically good study. The left ventricular size is normal. There is moderate concentric left ventricular hypertrophy. Overall left ventricular systolic function is normal with, an EF between 60 - 65 %. The right ventricle is moderately enlarged. LA is moderately dilated 34-39 ml/m2 The right atrium is normal in size. Aortic valve is trileaflet and is mildly thickened. There is trace to mild mitral regurgitation. Mild tricuspid regurgitation present. Right ventricular systolic pressure is normal at < 35 mmHg. The pulmonic valve is normal. The aortic root size is normal. The inferior vena cava is mildly dilated. There is no pericardial effusion. CONCLUSIONS -------- 1. Sinus rhythm. 2. There is trace to mild mitral regurgitation. 3. Mild tricuspid regurgitation present. 4. Right ventricular systolic pressure is normal at < 35 mmHg. 5. The pulmonic valve is normal. 6. The aortic root size is normal. 7. The inferior vena cava is mildly dilated. 8. There is no pericardial effusion. 9. This was a technically good study. 10. The left ventricular size is normal. 11. There is moderate concentric left ventricular hypertrophy. 12. Overall left ventricular systolic function is normal with, an EF between 60 - 65 %. 13. The right ventricle is moderately enlarged. 14. LA is moderately dilated 34-39 ml/m2 15. The right atrium is normal in size. 16. Aortic valve is trileaflet and is mildly thickened. SCIENTIFIC RESEARCH MANAGER: Swetha Stanley RDCS
[2017-07-12] MEDS: guaiFENesin-DM 100-10MG/5ML 10 ML CUP PO PRN ×3 (00:18→23:42)
[2017-07-12] MEDS: AZITHROMYCIN 500 MG in SODIUM CHLORIDE 0.9% 250 ML IVPB SCH (01:17)
[2017-07-12] MEDS: ALBUTEROL NEBULIZED 2.5 MG/3 ML INHALATION SCH ×4 (08:32→19:43)
[2017-07-12] MEDS: ATENOLOL 50 MG TAB PO SCH ×2 (08:36→20:11)
[2017-07-12] MEDS: NICOTINE 21MG/24HR PATCH TRANSDERM SCH (08:36)
[2017-07-12] MEDS: HEPARIN SODIUM,PORCINE 5,000 UNIT/ML 1 ML VIAL SQ SCH ×4 (08:36→23:39)
[2017-07-12] MEDS: predniSONE 20 MG TAB PO SCH (08:37)
[2017-07-12] MEDS: FUROSEMIDE 10 MG/ML 4 ML VIAL IV SCH ×2 (08:37→20:12)
--- NOTE | 2017-07-12 09:03 | P.PN ---
Subjective Principal diagnosis: Acute respiratory failure This is a pleasant 52-year-old gentleman with a past medical history significant for obesity, hypertension, and COPD presented to the hospital complaining of shortness of breath. The patient describes symptoms of exertional dyspnea as well as orthopnea. He also developed bilateral lower extremities edema. Over the last few days he has been experiencing cough productive of sputum. No fever and no chills. The patient is not aware of any prior cardiac history but he stated that he was admitted to [facility] over a year with symptoms of congestive heart failure. He has extensive history of smoking and he smoke one pack per day. The EKG showed sinus rhythm without any significant ST or T-wave abnormalities. The cardiac enzymes were checked and came in to be unremarkable. The BNP came in to be alleviated. The chest x-ray showed finding consistent with chronic changes as well as some vascular congestions. On physical examination the patient has extensive expiratory wheezing On follow-up with the patient today on 07/12/2017, the patient is feeling better in term shortness of breath. He continues to have bilateral expiratory wheezing. Will continues to be on diuretics IV. He lost 3 kg. Echocardiogram showed normal LV function with hypertensive heart disease findings. Objective - Vital Signs Vital signs: Vital Signs Temp 97.6 F 07/12/17 08:20 Pulse 82 07/12/17 08:46 Resp 20 07/12/17 08:20 BP 124/71 07/12/17 08:20 Pulse Ox 94 L 07/12/17 08:34 Intake & Output 07/11/17 07/12/17 07/12/17 18:59 06:59 18:59 Intake Total 417 937 240 Output Total 1050 1900 Balance -633 -963 240 Weight 105.7 kg Intake: Oral 417 937 240 Output: Urine 1050 1900 Other: Voiding Method Toilet # Voids 1 - Constitutional General appearance: Present: no acute distress - Respiratory Respiratory: bilateral: wheezing - Cardiovascular Rhythm: regular Heart sounds: normal: S1, S2 - Labs CBC & Chem 7: 07/11/17 05:51 07/11/17 05:51 Assessment and Plan Plan: This is a pleasant 52-year-old gentleman hypertension as OB the as well as significant history of smoking who was admitted to the hospital was acute respiratory failure. I do feel that the patient has a component of congestive heart failure in addition to COPD exacerbation. We will continue IV diuretics. Continue monitor the kidney function and electrolytes.
[2017-07-12] MEDS: AZITHROMYCIN 500 MG TAB PO SCH (12:44)
[2017-07-12] MEDS: LISINOPRIL 5 MG TAB PO SCH (12:44)
[2017-07-12] MEDS: ASPIRIN 81 MG PO SCH (20:12)
[2017-07-13] MEDS: ALBUTEROL NEBULIZED 2.5 MG/3 ML INHALATION SCH ×4 (07:30→19:53)
[2017-07-13] MEDS: HEPARIN SODIUM,PORCINE 5,000 UNIT/ML 1 ML VIAL SQ SCH ×2 (07:40→16:32)
[2017-07-13] MEDS: FUROSEMIDE 10 MG/ML 4 ML VIAL IV SCH ×2 (07:41→20:01)
[2017-07-13] MEDS: ATENOLOL 50 MG TAB PO SCH ×2 (07:41→20:01)
[2017-07-13] MEDS: LISINOPRIL 5 MG TAB PO SCH (07:42)
[2017-07-13] MEDS: guaiFENesin-DM 100-10MG/5ML 10 ML CUP PO PRN (07:42)
[2017-07-13] MEDS: predniSONE 20 MG TAB PO SCH (07:42)
[2017-07-13] MEDS: NICOTINE 21MG/24HR PATCH TRANSDERM SCH (08:44)
[2017-07-13] MEDS: AZITHROMYCIN 500 MG TAB PO SCH (11:31)
[2017-07-13] MEDS: ASPIRIN 81 MG PO SCH (20:01)
[2017-07-13 23:58] VITALS: RESP 16; TEMP 97
--- NOTE | 2017-07-14 00:05 | P.PN ---
Subjective Principal diagnosis: Acute COPD exacerbation 52-year-old male with history of emphysema, hypertension and current tobacco use presents with a one-week history of cough and congestion. Patient has had a productive cough white sputum. Also subjective chills. He denies chest pain. Patient was given Solu-Medrol, and DuoNeb by EMS prior to arrival. According to EMS he was hypoxic in the low 80s. Patient denies abdominal pain. No nausea or vomiting. No recent travel or sick contacts. Patient denied any history of heart problems. But he did mention that he was given Lasix for lung condition at [facility]. Patient continued to smoke 1 pack per day. Chest x-ray in the emergency room showed COPD changes and bibasilar atelectasis and tiny effusion BNP 2890 Troponin 0.033 Patient is given a dose of Lasix in the ER and IV Solu-Medrol and duo nebs. 07/10/2017 Patient's breathing status improved but still having diffuse wheezing. Patient was started on Lasix 40 mg twice daily. TTE was ordered. No complaints of chest pain. Patient is being continued on prednisone 40 mg daily along with breathing treatments. 07/13/2017 Patient's breathing status is much improved now. Continued on IV Lasix. Patient denied any worsening short of breath or chest pain. Clinically improving. No nausea vomiting or abdominal pain. We will change Lasix to by mouth tomorrow and possible discharge. Monitor renal function. All other review of systems negative except above. Current medications reviewed Objective - Vital Signs Vital signs: Vital Signs Temp 98.2 F 07/13/17 15:00 Pulse 72 07/13/17 20:08 Resp 20 07/13/17 15:00 BP 115/86 07/13/17 15:00 Pulse Ox 90 L 07/13/17 15:00 Intake & Output 07/13/17 07/13/17 07/14/17 06:59 18:59 06:59 Intake Total 240 Output Total 750 Balance -750 240 Weight 105 kg 105 kg Intake: Oral 240 Output: Urine 750 Other: Voiding Method Toilet Toilet # Voids 1 2 1 - Exam PHYSICAL EXAMINATION: Patient is lying in the bed comfortably, no acute distress, awake alert and oriented.. HEENT: Normocephalic. Neck is supple. Pupils reactive. Nostrils clear. Oral cavity is moist. Ears reveal no drainage. Neck reveals no JVD, carotid bruits, or thyromegaly. CHEST EXAMINATION: Trachea is central. Symmetrical expansion. Bilateral air entry improved. Prolonged expiration. No wheezing CARDIAC: Normal S1, S2 with no gallops. No murmurs ABDOMEN: Soft. Bowel sounds normal. No organomegaly. No abdominal bruits. Extremities trace edema. No clubbing or cyanosis Neurologically awake, alert, oriented x3 with well-coordinated movements. Skin: no rash or skin lesions Musculoskeletal: no joint swelling or deformity. - Labs CBC & Chem 7: 07/11/17 05:51 07/11/17 05:51 Assessment and Plan Plan: #1 acute COPD exacerbation #2 acute tracheobronchitis #2 nicotine addiction. counseled extensively #3 elevated BNP with possible acute CHF with diastolic dysfunction. Ejection fraction 60-65%. #4 morbid obesity with BMI 35.7 #5 DVT prophylaxis Plan: Patient will be continued on antibiotics breathing treatments and prednisone by mouth. Continue with Lasix 40 mg every 12. Cardiology is following. Further recommendations based on the clinical course. Patient was counseled extensively for smoking cessation. Patient is clinically improving.
[2017-07-14 07:49] VITALS: BP 122/77
[2017-07-14] MEDS: ALBUTEROL NEBULIZED 2.5 MG/3 ML INHALATION SCH ×2 (09:04→11:52)
[2017-07-14] MEDS: FUROSEMIDE 10 MG/ML 4 ML VIAL IV SCH (09:12)
[2017-07-14] MEDS: ATENOLOL 50 MG TAB PO SCH (09:12)
[2017-07-14] MEDS: predniSONE 20 MG TAB PO SCH (09:13)
[2017-07-14] MEDS: NICOTINE 21MG/24HR PATCH TRANSDERM SCH (09:13)
[2017-07-14] MEDS: HEPARIN SODIUM,PORCINE 5,000 UNIT/ML 1 ML VIAL SQ SCH ×2 (09:13)
[2017-07-14] MEDS: LISINOPRIL 5 MG TAB PO SCH (09:14)
[2017-07-14 09:42] LABS: Basophils % (A) 0 %; CH 32.2; CHCM 31.6; Eosinophils # (A) 0.3 k/uL (0-0.7); Eosinophils % (A) 3 %; HCT 49.3 % (39.0-53.0); HDW 3.57; HGB 15.6 gm/dL (13.0-17.5); Hypochromasia Moderate; Luc # (Auto) 0.23; Luc % (Auto) 2; Lymphocytes # (A) 2.2 k/uL (1.0-4.8); Lymphocytes % (A) 20 %; MCH 32.4 pg (25.0-35.0); MCHC 31.7 g/dL (31.0-37.0); MCV 102.4 fL (80.0-100.0); Macrocytosis Slight; Mean Platelet Volume 7.1; Monocytes # (A) 0.9 k/uL (0-1.0); Monocytes % (A) 8 %; Neutrophils # (A) 7.1 k/uL (1.3-7.7); Neutrophils % (A) 66 %; Poikilocytosis Slight; RBC 4.81 m/uL (4.30-5.90); RDW 14.6 % (11.5-15.5); WBC 10.7 k/uL (3.8-10.6); WBC (Perox) 10.35
[2017-07-14 09:51] LABS: Anion Gap 9 mmol/L; Blood Urea Nitrogen 21 mg/dL (9-20); Calcium 9.8 mg/dL (8.4-10.2); Carbon Dioxide 35 mmol/L (22-30); Chloride 97 mmol/L (98-107); Glucose 156 mg/dL (74-99); Non-African American GFR(MDRD) >60 (>60 ml/min/1.73 sqM); Potassium 4.7 mmol/L (3.5-5.1); Sodium 141 mmol/L (137-145)
[2017-07-14] MEDS: AZITHROMYCIN 500 MG TAB PO SCH (11:55)
[2017-07-14 12:31] VITALS: PULSE 74
== END 2017-07-14 16:32 | disposition home or self-care (01) | DRG 190 ==
LOC: EC 11:39 → 6SEL 13:32 → 4MS4W 07-12 23:25
PROVIDERS: ADMIT Internal Medicine; ATTEND Internal Medicine
DX: J44.0 Chronic obstructive pulmonary disease with (acute) lower respiratory infection (principal); J96.01 Acute respiratory failure with hypoxia; I50.31 Acute diastolic (congestive) heart failure; J18.9 Pneumonia, unspecified organism; I11.0 Hypertensive heart disease with heart failure; E66.01 Morbid (severe) obesity due to excess calories; J44.1 Chronic obstructive pulmonary disease with (acute) exacerbation; J20.9 Acute bronchitis, unspecified; F17.200 Nicotine dependence, unspecified, uncomplicated; Z68.35 Body mass index [BMI] 35.0-35.9, adult; Z71.6 Tobacco abuse counseling; Z79.82 Long term (current) use of aspirin; Z79.899 Other long term (current) drug therapy; Z82.49 Family history of ischemic heart disease and other diseases of the circulatory system
CPT/HCPCS: 36415; 71020; 80048; 80053; 82550; 82553; 83880; 84439; 84443; 84484; 85025; 85610; 85730; 93005; 93306; 94640; 94760; 96361; 96365; 96366; 96367; 96375; 99285

== ENCOUNTER 2018-10-28 09:16 | Inpatient (IN) | payer OTHER ==
--- NOTE | 2018-10-28 09:27 | ED ---
SOB HPI - General Stated Complaint: Diff Breathing Time Seen by Provider: 10/28/18 09:23 Source: RN notes reviewed, old records reviewed - History of Present Illness Initial Comments: This is a 53-year-old male the ER for evaluation. This patient presents today for evaluation regards to severe shortness of breath, patient is accepted in transfer for COPD with respiratory failure. Patient also has underlying history of CHF denies current chest pain. Patient is still continuing with shortness of breath although oxygen is remain normal and stable he does feel improved from original presentation to other emergency room. Patient brought in by EMS, history otherwise obtained from EMS and patient's chart is complications patient is currently on BiPAP MD Complaint: shortness of breath, cough -: days(s) Radiation: other (No pain) Severity: severe Severity scale (1-10): 8 Quality: aching Consistency: constant Improves With: rest, other (BiPAP) Worsens With: exertion Known History Of: COPD, congestive heart failure Associated Symptoms: cough, sputum production Treatments Prior to Arrival: oxygen, bronchodilator, NIPPV - Related Data Home Medications Medication Instructions Recorded Confirmed Albuterol Nebulized [Ventolin 2.5 mg INHALATION RT-QID PRN 07/09/17 10/28/18 Nebulized] Ascorbic Acid [Vitamin C] 500 mg PO BID 07/09/17 10/28/18 Aspirin EC [Ecotrin Low Dose] 81 mg PO HS 07/09/17 10/28/18 Cholecalciferol [Vitamin D3] 5,000 unit PO DAILY 07/09/17 10/28/18 Cyanocobalamin (Vitamin B-12) 1,000 mcg PO DAILY 07/09/17 10/28/18 [Vitamin B-12] Ergocalciferol (Vitamin D2) 50,000 unit PO WE 07/09/17 10/28/18 [Vitamin D2] Magnesium Oxide [Mag-Ox] 250 mg PO HS 07/09/17 10/28/18 [place]-3 Fatty Acids/Fish Oil [Fish 1 cap PO DAILY 07/09/17 10/28/18 Oil 1,000 mg Softgel] Atorvastatin [Lipitor] 20 mg PO DAILY 10/28/18 10/28/18 Carvedilol 25 mg PO BID 10/28/18 10/28/18 Hydrochlorothiazide [Hydrodiuril] 50 mg PO DAILY 10/28/18 10/28/18 Ibuprofen [Motrin Ib] 200 mg PO DAILY 10/28/18 10/28/18 Potassium Chloride [Klor-Con 10] 10 meq PO DAILY 10/28/18 10/28/18 Previous Rx's Medication Instructions Recorded Budesonide [Pulmicort] 0.5 mg INHALATION BID 30 Days neb 07/14/17 Tiotropium 18 Mcg/Puff [Spiriva] 1 cap INHALATION DAILY #30 cap 07/14/17 Allergies Allergy/AdvReac Type Severity Reaction Status Date / Time ANURAG Inhibitors Allergy Anaphylaxis Verified 10/28/18 10:32 Review of Systems ROS Statement: Those systems with pertinent positive or pertinent negative responses have been documented in the HPI. ROS Other: All systems not noted in ROS Statement are negative. Past Medical History Past Medical History: COPD, Hypertension Additional Past Medical History / Comment(s): Pt states about 1 yr ago he had "water retention in my legs." He states he was seen at [facility] and was on lasix for awhile. Pt recently started using O2 at 2L/NC ATC. History of Any Multi-Drug Resistant Organisms: None Reported Past Surgical History: No Surgical Hx Reported Past Anesthesia/Blood Transfusion Reactions: Unable to Obtain Additional Past Anesthesia/Blood Transfusion Reaction / Comment(s): Pt has never had anesthesia. Smoking Status: Former smoker - Past Family History Mother Family Medical History: No Reported History Additional Family Medical History / Comment(s): Mother is healthy and is 75yrs old. Father Family Medical History: Vascular Disorder Additional Family Medical History / Comment(s): Father at the age of 60yrs a couple days after vascular surgery. General Exam General appearance: alert, anxious, in distress Head exam: Present: atraumatic, normocephalic, normal inspection Eye exam: Present: normal appearance, PERRL, EOMI. Absent: scleral icterus, conjunctival injection, periorbital swelling ENT exam: Present: normal exam, mucous membranes moist Neck exam: Present: normal inspection. Absent: tenderness, meningismus, lymphadenopathy Respiratory exam: Present: respiratory distress, accessory muscle use, decreased breath sounds, prolonged expiratory. Absent: wheezes, rales, rhonchi , stridor Cardiovascular Exam: Present: regular rate, normal rhythm, normal heart sounds. Absent: systolic murmur, diastolic murmur, rubs, gallop, clicks GI/Abdominal exam: Present: soft, normal bowel sounds. Absent: distended, tenderness, guarding, rebound, rigid Extremities exam: Present: normal inspection, full ROM, normal capillary refill. Absent: tenderness, pedal edema, joint swelling, calf tenderness Back exam: Present: normal inspection Neurological exam: Present: alert, oriented X3, CN II-XII intact Psychiatric exam: Present: normal affect, normal mood Skin exam: Present: warm, dry, intact, normal color. Absent: rash Course Vital Signs 10/28/18 10/28/18 10/28/18 09:32 09:47 10:02 Temperature 97.9 F Pulse Rate 86 77 86 Respiratory 25 H Rate Blood Pressure 148/102 O2 Sat by Pulse 94 L Oximetry 10/28/18 10:22 Temperature Pulse Rate 87 Respiratory Rate Blood Pressure O2 Sat by Pulse Oximetry - Reevaluation(s) Reevaluation #1: 10/28/18 10:43 Medical record transfer paperwork is reviewed Reevaluation #2: 10/28/18 10:43 Patient remains stable on BiPAP Medical Decision Making - Medical Decision Making 53 male the ER for evaluation, patient on BiPAP will admit for respiratory failure shortness stress secondary to COPD and CHF - Lab Data Result diagrams: 10/28/18 09:44 10/28/18 09:44 - EKG Data -: EKG Interpreted by Me (EKG shows normal sinus rhythm rate of 84, NM 164, QRS 100, QTc 437) - Radiology Data Radiology results: report reviewed (Chest x-ray is positive for CHF), image reviewed Critical Care Time Critical Care Time: Yes Total Critical Care Time: 31 Disposition Clinical Impression: Congestive heart failure, Acute exacerbation of chronic obstructive airways disease, Acute respiratory failure Disposition: ADMITTED IP TO THIS HOSP Condition: Fair Is patient prescribed a controlled substance at d/c from ED?: No
[2018-10-28] MEDS ORDERED: IPRATROPIUM 0.5 MG/2.5 ML NEBU INHALATION STA (09:34)
[2018-10-28] MEDS ORDERED: SODIUM CHLORIDE 0.9% 1,000 ML IV STA ×2 (09:34)
[2018-10-28] MEDS ORDERED: ALBUTEROL NEBULIZED 2.5 MG/3 ML INHALATION STA (09:34)
[2018-10-28] MEDS ORDERED: methylPREDNISolone SOD SUCCI 125 MG/2 ML VIAL IV STA (09:34)
[2018-10-28] MEDS ORDERED: AZITHROMYCIN 500 MG in SODIUM CHLORIDE 0.9% 250 ML IVPB STA (09:39)
[2018-10-28 10:11] LABS: Basophils % (A) 0 %; Eosinophils # (A) 0.1 k/uL (0-0.7); Eosinophils % (A) 1 %; HCT 44.8 % (39.0-53.0); HGB 14.8 gm/dL (13.0-17.5); Lymphocytes # (A) 0.3 k/uL (1.0-4.8); Lymphocytes % (A) 3 %; MCH 31.9 pg (25.0-35.0); MCHC 33.1 g/dL (31.0-37.0); MCV 96.6 fL (80.0-100.0); Mean Platelet Volume 7.5; Monocytes # (A) 0.3 k/uL (0-1.0); Monocytes % (A) 4 %; Neutrophils # (A) 8.3 k/uL (1.3-7.7); Neutrophils % (A) 92 %; Platelet Count 184 k/uL (150-450); Poikilocytosis Slight; RBC 4.64 m/uL (4.30-5.90); RDW 15.5 % (11.5-15.5); WBC 9.1 k/uL (3.8-10.6)
--- NOTE | 2018-10-28 10:13 | XR ---
EXAMINATION TYPE: XR chest 1V portable DATE OF EXAM: 10/28/2018 CLINICAL HISTORY: Difficulty breathing progress study. TECHNIQUE: Single AP portable upright view of the chest is obtained. COMPARISON: Chest x-ray from July 09, 2017 and outside x-ray earlier today FINDINGS: Cardiac silhouette size is stable and mildly enlarged. There is chronic parenchymal change redemonstrated without suspicious new focal airspace opacity, pleural effusion, or pneumothorax. Can not exclude mild central vascular congestion on background of chronic emphysematous change. Osseous s tructures are intact. IMPRESSION: Chronic parenchymal changes and cardiomegaly redemonstrated with suspected new mild centr al vascular congestion, correlate clinically for acute CHF exacerbation.
[2018-10-28 10:24] LABS: INR 0.9 (<1.2); Prothrombin Time 9.7 sec (9.0-12.0)
[2018-10-28 10:29] LABS: ALT 37 U/L (21-72); AST 44 U/L (17-59); Albumin 4.6 g/dL (3.5-5.0); Alkaline Phosphatase 102 U/L (38-126); Anion Gap 8 mmol/L; Blood Urea Nitrogen 22 mg/dL (9-20); Calcium 9.2 mg/dL (8.4-10.2); Carbon Dioxide 32 mmol/L (22-30); Chloride 97 mmol/L (98-107); Glucose 132 mg/dL (74-99); Magnesium 2.2 mg/dL (1.6-2.3); Potassium 5.4 mmol/L (3.5-5.1); Sodium 137 mmol/L (137-145); Total Bilirubin 0.9 mg/dL (0.2-1.3); Total Protein 7.8 g/dL (6.3-8.2)
[2018-10-28] MEDS ORDERED: FUROSEMIDE 10 MG/ML 4 ML VIAL IV STA (10:44)
[2018-10-28 10:59] LABS: Creatine Kinase MB 2.7 ng/mL (0.0-2.4)
[2018-10-28 11:08] LABS: Troponin I 0.137 ng/mL (0.000-0.034)
[2018-10-28] MEDS: IPRATROPIUM-ALBUTEROL 3 ML NEB INHALATION SCH ×5 (11:42→23:40)
[2018-10-28] MEDS ORDERED: POTASSIUM CHLORIDE ER 10 MEQ TAB.ER.PRT PO SCH (13:15)
[2018-10-28] MEDS: BUDESONIDE 0.5 MG/2 ML NEBU INHALATION SCH ×2 (13:26→21:29)
[2018-10-28 15:15] LABS: ABG Base Excess 10.9 mmol/L; ABG HCO3 38 mmol/L (21-25); ABG Oxygen Saturation 99.8 % (94-97); ABG PH 7.28 (7.35-7.45); ABG PO2 350 mmHg (83-108); ABG TCO2 40 mmol/L (19-24)
[2018-10-28 15:16] LABS: ABG PCO2 80 mmHg (35-45)
[2018-10-28] MEDS: ASCORBIC ACID 500 MG TAB PO SCH ×2 (15:41→20:20)
[2018-10-28] MEDS: ATORVASTATIN 20 MG TAB PO SCH (15:41)
[2018-10-28] MEDS: CARVEDILOL 12.5 MG TAB PO SCH ×2 (15:42→16:38)
[2018-10-28] MEDS: CYANOCOBALAMIN 500 MCG TAB PO SCH (15:42)
[2018-10-28] MEDS: methylPREDNISolone SOD SUCCI 125 MG/2 ML VIAL IV SCH ×2 (16:37→22:27)
[2018-10-28 17:11] LABS: Glucose,Whole Blood 205 mg/dL (75-99)
[2018-10-28] MEDS: INSULIN ASPART 100 UNIT/ML 1 ML 10 ML VIAL SQ SCH ×2 (17:40→20:56)
[2018-10-28] MEDS: ASPIRIN 81 MG PO SCH (20:21)
[2018-10-28] MEDS: MAGNESIUM OXIDE 400 MG TAB PO SCH (20:21)
[2018-10-28 20:52] LABS: Glucose,Whole Blood 216 mg/dL (75-99)
[2018-10-28] MEDS ORDERED: FUROSEMIDE 10 MG/ML 4 ML VIAL IV SCH (21:00)
[2018-10-28] MEDS: BUDESONIDE 1 MG/2 ML NEBU INHALATION SCH (21:46)
[2018-10-28] MEDS: guaiFENesin 600 MG TABLET.ER PO SCH (22:27)
--- NOTE | 2018-10-28 22:27 | HP ---
HISTORY AND PHYSICAL DATE OF ADMISSION AND SERVICE: 10/28/2018. PRESENTING COMPLAINT: Short of breath. HISTORY OF PRESENTING COMPLAINT: This is a 53-year-old patient of Dr. Quezada and he also follows with Dr. Hewitt. He was transferred here from [facility]. The patient has longstanding COPD, on home oxygen. He has continued to smoke up until recently, close to a pack and a half a day. Progressively he was getting more and more short of breath, especially over the last 2 days, wheezing; could not breathe at all. He has a cough, sputum predominantly white. He had some fever and chills at home and decreased appetite, feeling tired and rundown. Also he had a couple of days ago some chest pain and pressure. No obvious radiation, but mixed with all of the above symptoms. Hence he was transferred down here. No prior history of coronary artery disease. REVIEW OF SYSTEMS: CONSTITUTIONAL: Weak, tired, rundown. HEENT: None. RESPIRATORY: As above. CARDIOVASCULAR: As above. GASTROINTESTINAL: None. GENITOURINARY: None. MUSCULOSKELETAL: None. DERMATOLOGICAL: None. HEMATOLOGICAL: None. LYMPHATICS: None. PSYCHIATRY: A bit anxious. NEUROLOGICAL: None. PAST MEDICAL HISTORY: 1. COPD. 2. Hyperlipidemia. 3. Hypertension. 4. Home oxygen. PAST SURGICAL HISTORY: None. SOCIAL HISTORY: Lives with his mother and girlfriend currently. No alcohol. Patient smoked close to 40 years, a pack and a half a day. He very recently discontinued this. Does marijuana occasionally. FAMILY HISTORY: Mother is healthy. HOME MEDICATIONS: 1. Vitamin D2 50,000 units on Friday. 2. Spiriva 1 capsule daily. 3. Potassium 10 mEq a day. 4. Fish oil 1 capsule p.o. daily. 5. Magnesium oxide 250 mg at bedtime. 6. Motrin. 7. Hydrochlorothiazide 50 mg a day. 8. Vitamin B12 1000 mcg a day. 9. Vitamin D3 5000 units a day. 10.Coreg 25 p.o. b.i.d. 11.Pulmicort 0.5 nebulizer b.i.d. 12.Lipitor 20 mg p.o. daily. 13.Aspirin 81 mg at bedtime. 14.Vitamin C 500 mg b.i.d. 15.Ventolin 2.5 q.i.d. p.r.n. ALLERGIES: ANURAG INHIBITOR. PHYSICAL EXAMINATION: VITAL SIGNS ON PRESENTATION: Temperature 97.9, pulse 86, respiration 25, blood pressure 148/102, pulse ox 94% on BiPAP. GENERAL APPEARANCE: Well built; BMI 32.5. Sitting at the edge of bed, short of breath, not able to speak in full sentences. EYES: Pupils equal. Conjunctivae normal. HEENT: External appearance of nose and ears normal. BiPAP in place. NECK: JVD unable to assess. Mass not palpable. RESPIRATORY: Effort increased. Accessory muscles are working. Prolonged expiration. Diminished breath sounds. CARDIOVASCULAR: First and second sounds normal. No edema. ABDOMEN: Distended, soft. Liver and spleen not palpable. LYMPHATIC: No lymph node palpable in neck or axillae. PSYCHIATRY: Alert and oriented x3. Mood and affect slightly anxious-appearing. NEUROLOGICAL: Pupils equal. Cranial nerves grossly intact. Power and sensation grossly intact. INVESTIGATIONS: White count 9.1, hemoglobin 14.8 potassium 5.4, BUN 22, creatinine 0.60, troponin 0.137. Blood gas showed a pH of 7.28, pCO2 of 80, and PO2 of 350. EKG tracing personally reviewed by me shows normal sinus rhythm. Chest x-ray shows bilateral infiltrates. ASSESSMENT: 1. Acute bilateral pneumonia. Suspect gram-negative organism, present on admission. 2. Acute hypoxic respiratory failure from above; patient requiring BiPAP. 3. Chronic hypoxic respiratory failure from underlying chronic obstructive pulmonary disease. 4. Acute severe chronic obstructive pulmonary disease exacerbation in a smoker until recently. 5. Obesity; body mass index 32.5. 6. Essential hypertension. 7. Acute hypercapnic respiratory failure that is type 2. 8. Hyperkalemia. Patient is on potassium supplementation. 9. Positive troponin 0.137 in a patient who had some chest pain a couple of days ago. This could be of an acute [place] versus could be troponin leak from hemodynamic mismatch. Patient's EKG is rather unremarkable. Will repeat troponin. Patient is already on aspirin and beta mitch, Lipitor. Will get a 2-D echocardiogram to assess for any wall motion abnormality. PLAN: The patient was put on nebulized bronchodilators, inhaled steroids, BiPAP supplementation. Home medications are resumed. Potassium has been held. Consultation to both Pulmonary and Cardiology is done. Two-D echo has been ordered. Care was discussed with the patient. Prognosis guarded. MMODL / IJN: [id number] /
[2018-10-29] MEDS ORDERED: IPRATROPIUM-ALBUTEROL 3 ML NEB INHALATION PRN (00:40)
[2018-10-29 05:53] LABS: Glucose,Whole Blood 167 mg/dL (75-99)
[2018-10-29] MEDS: methylPREDNISolone SOD SUCCI 125 MG/2 ML VIAL IV SCH ×3 (06:44→17:22)
[2018-10-29] MEDS: CARVEDILOL 12.5 MG TAB PO SCH ×2 (06:44→17:21)
[2018-10-29] MEDS: INSULIN ASPART 100 UNIT/ML 1 ML 10 ML VIAL SQ SCH ×4 (06:44→21:21)
[2018-10-29 07:48] LABS: Anion Gap 9 mmol/L; Blood Urea Nitrogen 29 mg/dL (9-20); Calcium 9.1 mg/dL (8.4-10.2); Carbon Dioxide 37 mmol/L (22-30); Chloride 93 mmol/L (98-107); Cholesterol 156 mg/dL (<200); Glucose 150 mg/dL (74-99); HDL Cholesterol 38 mg/dL (40-60); LDL Cholesterol,Calculated 104 mg/dL (0-99); Sodium 139 mmol/L (137-145); Triglycerides 70 mg/dL (<150)
[2018-10-29] MEDS: IPRATROPIUM-ALBUTEROL 3 ML NEB INHALATION SCH ×5 (07:50→23:41)
[2018-10-29] MEDS: BUDESONIDE 1 MG/2 ML NEBU INHALATION SCH ×2 (07:50→19:11)
[2018-10-29] MEDS: ASCORBIC ACID 500 MG TAB PO SCH ×2 (08:56→20:34)
[2018-10-29] MEDS: ENOXAPARIN 40 MG/0.4 ML SYRINGE SQ SCH (08:57)
[2018-10-29] MEDS: CYANOCOBALAMIN 500 MCG TAB PO SCH (08:57)
[2018-10-29] MEDS: ATORVASTATIN 20 MG TAB PO SCH (08:57)
[2018-10-29] MEDS: guaiFENesin 600 MG TABLET.ER PO SCH ×2 (08:57→20:34)
[2018-10-29] MEDS ORDERED: POTASSIUM CHLORIDE ER 10 MEQ TAB.ER.PRT PO SCH (09:00)
--- NOTE | 2018-10-29 09:31 | CONS ---
CONSULTATION CHIEF COMPLAINT: Shortness of breath. Basilio is a 53-year-old gentleman with history of COPD on home O2, who presented to the hospital with progressively worsening shortness of breath, cough, wheezing and sputum production. Cardiology had been consulted because of mild elevation in troponin. He denies chest pain, leg edema, paroxysmal nocturnal dyspnea or orthopnea. His EKG shows normal sinus rhythm without acute ST-T wave changes. He also had mild leg edema on his initial presentation and he is currently being treated with Lasix for the same. PAST MEDICAL HISTORY: Significant for COPD, hypertension, dyslipidemia. MEDICATIONS: Medications at home include hydrochlorothiazide 50 mg daily, Pulmicort, Coreg 25 b.i.d., Lipitor, aspirin and Ventolin. ALLERGIES: He is allergic to ANURAG INHIBITORS. FAMILY HISTORY: Family history is negative for premature coronary artery disease. SOCIAL HISTORY: Social history is significant for smoking. There is no history of EtOH abuse or drug abuse. REVIEW OF SYSTEMS: HEENT is unremarkable. CARDIAC: As described above. RESPIRATORY: As described above. GI: Negative. GENITOURINARY: Negative. MUSCULOSKELETAL: Negative. SKIN: Negative. HEMATOLOGICAL: Negative. CONSTITUTIONAL: Significant for weak, tired and fatigued. PSYCH: Negative. Rest of the system review is not relevant. PAST SURGICAL HISTORY: Unremarkable. PHYSICAL EXAMINATION: On exam, he is comfortable at rest. Afebrile. Vital signs are stable. There is no jugular venous distention. Carotid upstroke is normal. There is no bruit. Chest exam reveals diffuse bilateral rhonchi. Heart exam reveals first and second heart sounds. No gallop. No murmur. Abdomen is soft, nontender. Examination of extremities reveals mild edema. Peripheral pulses are felt. LABS: Labs show BUN of 29, creatinine is 0.6. Potassium is 4. Troponin is 0.13 x 2. Lipid profile shows an LDL cholesterol of 104. ASSESSMENT: 1. Troponin elevation probably related to chronic obstructive pulmonary disease exacerbation, hypoxia and supply demand mismatch. 2. Chronic obstructive pulmonary disease exacerbation. PLAN: I will obtain a 2D echo to evaluate his LV function and wall motion. Continue the patient on aspirin, statins and beta blockers. When the patient's respiratory status becomes stable, we will consider doing an outpatient stress test on him. MMODL / IJN: [id number] /
[2018-10-29 11:46] LABS: Glucose,Whole Blood 167 mg/dL (75-99)
[2018-10-29] MEDS: AZITHROMYCIN 500 MG TAB PO SCH (17:21)
[2018-10-29 17:39] LABS: Glucose,Whole Blood 139 mg/dL (75-99)
--- NOTE | 2018-10-29 18:16 | CONS ---
CONSULTATION DATE OF SERVICE: 10/29/2018 REASON FOR CONSULTATION: Shortness of breath. This is a 53-year-old male known to me. He has a history of stage II/stage III COPD. I believe his FEV1 is 50% of predicted. His primary care physician is Dr. Jay Quezada at the [facility]. I saw him last in the clinic on September 07. At that time he was doing relatively well. The patient comes into the emergency room on October 28 complaining of increasing shortness of breath, chest congestion, cough and wheezing. He apparently initially presented to the [facility] ER and then was transferred here. He had a blood gas showing a low pH and the patient was placed on BiPAP. His pH responded very nicely. His last blood gas showed a pH of 7.28. Currently not on BiPAP. He is on nasal oxygen at 6 L. The patient's complaints included shortness of breath, chest tightness, wheezing, cough, chest congestion and phlegm production. MEDICATIONS: Include: 1. Albuterol updrafts. 2. Ascorbic acid. 3. Aspirin. 4. Vitamin D3. 5. Vitamin B12. 6. Vitamin D2. 7. Mag-Ox. 8. Fatty acids. 9. Lipitor. 10.Coreg. 11.Hydrochlorothiazide. 12.Ibuprofen. 13.Potassium. 14.Spiriva. 15.Symbicort 160/4.5 two puffs twice a day. ALLERGIES: Include PRIMARILY ANURAG INHIBITORS. PAST MEDICAL HISTORY: Positive for stage II/stage III COPD. His FEV1 is 50% of predicted. He also complains of significant lower extremity edema. SURGICAL HISTORY: Unremarkable. SOCIAL HISTORY: Positive for previous tobacco use. Does not smoke currently. FAMILY HISTORY: Positive for peripheral vascular disease. SOCIAL HISTORY: The patient smoked up until July 09, 2017. That was when he was about 51 years of age. He started smoking when he was 13 years of age. He does not smoke currently, he tells me. REVIEW OF SYSTEMS: CONSTITUTIONAL: Negative. NEUROLOGIC: Negative. HEENT: Negative. CARDIOVASCULAR: Negative. PULMONARY: Shortness of breath, chest tightness, wheezing, cough, chest congestion and phlegm production. GI/: Negative. RHEUMATOLOGIC/IMMUNOLOGIC: Negative. ENDOCRINOLOGIC: Negative. DERMATOLOGIC: Negative. PHYSICAL EXAMINATION: Current vital signs include a temperature which is 97.1, heart rate 71, respiratory rate 16, blood pressure 130/70 mean 90, room-air saturation 95%. Six-liter saturation 94%. Appears in no acute distress. Mildly tachypneic and dyspneic. When we saw him, he was on 6 L. I believe the 95% on room air documented is not correct. HEENT examination is grossly unremarkable. Nasal oxygen in place. NECK: Supple. Full range of motion. No adenopathy or thyromegaly. Cardiovascular examination reveals regular rhythm and rate. Heart rate in mid 70s. No murmur. S1, S2 normal. Lungs reveal expiratory wheezes and rhonchi. Breath sounds are diminished. There is prolongation on forced maneuver. Adventitious lung sounds are more prominent on forced maneuver. No crackles. ABDOMEN: Soft. Bowel sounds are heard. No masses or tenderness. Extremities are intact. Slight edema. Skin without rash. Neurologic examination is brief but nonfocal. LABS: Reviewed. White count 9.1, hemoglobin 14.8, hematocrit 44.8, platelet count 184,000. The patient's PT and INR were 9.7 and 0.9, respectively. A repeat blood gas shows a PO2 of 358, pCO2 of 80, and a pH of 7.28. I believe the blood gas at [facility], which was the initial blood gas, had a pH of 7.14. Sodium 139, potassium 5, chloride 93, CO2 37. Anion gap is 9. BUN and creatinine were 29 and 0.62. The troponin was 0.133. A chest x-ray was done. It shows chronic parenchymal changes and cardiomegaly with some very mild central vascular congestion. This could be consistent with CHF. His N-terminal proBNP was only 186 yesterday in the emergency room. Medications are reviewed. ASSESSMENT: 1. Chronic obstructive pulmonary disease exacerbation complicated by purulent tracheobronchitis, without satnam pneumonia. 2. Previous history of heavy tobacco use. 3. Hyperlipidemia. 4. Hypertension. 5. Possible mild congestive heart failure. 6. Vitamin D deficiency. PLAN: The patient's medications have already been adjusted. We have added Pulmicort and formoterol twice a day. The patient is on Zithromax 500 mg a day. In addition, the patient is getting Solu-Medrol 60 mg q.6 hours and updrafts with DuoNeb q.i.d. and p.r.n. We will continue to follow. The patient is already much better than he was yesterday. His overall prognosis still is guarded. His FEV1 is right around 50% of predicted. Additional recommendations and suggestions are forthcoming. MMODL / IJN: [id number] /
--- NOTE | 2018-10-29 18:34 | PN ---
PROGRESS NOTE DATE OF SERVICE: 10/29/2018. PRESENTING COMPLAINT: Short of breath. INTERVAL HISTORY: This patient is a smoker who presented with bilateral pneumonia, acute respiratory failure and severe COPD exacerbation with hypercapnia. Patient also had a troponin leak. The patient was on a BiPAP yesterday, switched over to nasal cannula today. Feels a bit better. He has a cough. Breathing is a shade better. No chest pain. Did tolerate some diet. Did tolerate his meal. REVIEW OF SYSTEMS: Done for constitutional, cardiovascular, GI, pulmonary; relevant findings as above. CURRENT MEDICATIONS: Reviewed. They include: 1. DuoNeb. 2. IV Solu-Medrol. 3. Zithromax. 4. IV ceftriaxone. 5. Aspirin. 6. Coreg. PHYSICAL EXAMINATION: Afebrile. Pulse 84, respiration 22, blood pressure 126/73, pulse ox 95% on 2 L. GENERAL APPEARANCE: Sitting on the edge of the bed. Breathing better. EYES: Pupils equal. Conjunctivae normal. NECK: JVD unable to assess. Mass not palpable. RESPIRATORY: Effort increased. LUNGS: Decreased breath sounds. Prolonged expiration. CARDIOVASCULAR: First and second sounds normal. No edema. ABDOMEN: Distended, soft. Liver and spleen not palpable. PSYCHIATRY: Alert and oriented x3. Mood and affect less anxious-appearing. INVESTIGATIONS: Potassium 5. BUN 29, creatinine 0.62. Accu-Cheks are noted: 167, 139. LDL 104. Troponin 0.137, 0.133. ASSESSMENT: 1. Acute bilateral pneumonia. Suspect gram-negative organism. Present on admission. 2. Acute hypoxic respiratory failure from above. Patient initially requiring BiPAP; now on nasal cannula. 3. Chronic hypoxic respiratory failure from underlying chronic obstructive pulmonary disease with hypercapnia. 4. Acute severe chronic obstructive pulmonary disease exacerbation in a smoker. 5. Obesity; body mass index 32.5. 6. Essential hypertension. 7. Hyperkalemia, now improved. 8. Troponin leak, possibly from hemodynamic mismatch. Awaiting further workup with Cardiology. PLAN: Continue with bronchodilators, steroids, antibiotics, oxygen. Patient encouraged to ambulate. Pending 2D echocardiogram. Repeat chest x-ray in the morning. MMODL / IJN: [id number] /
[2018-10-29] MEDS: FORMOTEROL FUMARATE 20 MCG/2 ML NEBU INHALATION SCH (19:11)
[2018-10-29] MEDS: ASPIRIN 81 MG PO SCH (20:34)
[2018-10-29] MEDS: MAGNESIUM OXIDE 400 MG TAB PO SCH (20:34)
[2018-10-29 21:12] LABS: Glucose,Whole Blood 166 mg/dL (75-99)
[2018-10-29] MEDS: methylPREDNISolone SOD SUCCI 40 MG/ML 1 ML VIAL IV SCH (23:04)
[2018-10-30] MEDS: IPRATROPIUM-ALBUTEROL 3 ML NEB INHALATION SCH ×4 (03:57→15:28)
[2018-10-30 05:52] LABS: Glucose,Whole Blood 159 mg/dL (75-99)
[2018-10-30] MEDS: CARVEDILOL 12.5 MG TAB PO SCH (06:25)
[2018-10-30] MEDS: INSULIN ASPART 100 UNIT/ML 1 ML 10 ML VIAL SQ SCH ×2 (06:25→11:49)
[2018-10-30 06:42] LABS: Anion Gap 6 mmol/L; Blood Urea Nitrogen 26 mg/dL (9-20); Calcium 9.6 mg/dL (8.4-10.2); Carbon Dioxide 35 mmol/L (22-30); Chloride 96 mmol/L (98-107); Glucose 153 mg/dL (74-99); Sodium 137 mmol/L (137-145)
--- NOTE | 2018-10-30 07:55 | ECHOF ---
Referral Reason:pos trops MEASUREMENTS -------- HEIGHT: 172.7 cm WEIGHT: 98.4 kg BP: 152/76 RVIDd: 3.5 cm (< 3.3) IVSd: 1.3 cm (0.6 - 1.1) LVIDd: 4.5 cm (3.9 - 5.3) LVPWd: 1.2 cm (0.6 - 1.1) IVSs: 1.2 cm LVIDs: 2.7 cm LVPWs: 1.5 cm Ao Diam: 2.4 cm (2.0 - 3.7) AV Cusp: 1.7 cm (1.5 - 2.6) MV EXCURSION: 19.825 mm (> 18.000) MV EF SLOPE: 110 mm/s (70 - 150) EPSS: 0.2 cm RAP: 5.00 mmHg RVSP: 25.68 mmHg FINDINGS -------- Sinus rhythm. This was a technically adequate study. The left ventricular size is normal. There is mild concentric left ventricular hypertrophy. Overa ll left ventricular systolic function is normal with, an EF between 55 - 60 %. The right ventricle is mild to moderately enlarged. The left atrial size is normal. The right atrial size is normal. The aortic valve is trileaflet, and appears structurally normal. No aortic stenosis or regurgitation. Mild mitral annular calcification present. Mild mitral regurgitation is present. Mild tricuspid regurgitation present. There is no evidence of pulmonary hypertension. The right v entricular systolic pressure, as measured by Doppler, is 25.68mmHg. There is no pulmonic regurgitation present. The aortic root size is normal. There is no pericardial effusion. CONCLUSIONS -------- 1. The left ventricular size is normal. 2. There is mild concentric left ventricular hypertrophy. 3. Overall left ventricular systolic function is normal with, an EF between 55 - 60 %. 4. The right ventricle is mild to moderately enlarged. 5. The left atrial size is normal. 6. The right atrial size is normal. 7. The aortic valve is trileaflet, and appears structurally normal. No aortic stenosis or regurgitati on. 8. Mild mitral annular calcification present. 9. Mild mitral regurgitation is present. 10. Mild tricuspid regurgitation present. 11. There is no evidence of pulmonary hypertension. 12. The right ventricular systolic pressure, as measured by Doppler, is 25.68mmHg. 13. There is no pulmonic regurgitation present. 14. The aortic root size is normal. 15. There is no pericardial effusion. HOP GROWER: Jane Al RDCS
[2018-10-30] MEDS: FORMOTEROL FUMARATE 20 MCG/2 ML NEBU INHALATION SCH (07:58)
[2018-10-30] MEDS: BUDESONIDE 1 MG/2 ML NEBU INHALATION SCH (07:58)
--- NOTE | 2018-10-30 08:13 | XR ---
EXAMINATION TYPE: XR chest 2V DATE OF EXAM: 10/30/2018 COMPARISON: 10/28/2018 TECHNIQUE: PA and lateral views submitted. HISTORY: Difficulty breathing, cough FINDINGS: Heart size stable. Mild interstitial prominence with biapical pleural thickening. Pulmonary arteries are prominent there is hypertrophic and degenerative change of the spine. Linear changes at the left lung base most typical of atelectasis. IMPRESSION: 1. Correlate for pulmonary arterial hypertension. 2. Interstitial pattern may represent chronic interstitial lung disease or venous congestion correlat e clinically. 3. Basilar atelectasis favored over infiltrate.
[2018-10-30] MEDS: ATORVASTATIN 20 MG TAB PO SCH (08:38)
[2018-10-30] MEDS: guaiFENesin 600 MG TABLET.ER PO SCH (08:38)
[2018-10-30] MEDS: AZITHROMYCIN 500 MG TAB PO SCH (08:38)
[2018-10-30] MEDS: ASCORBIC ACID 500 MG TAB PO SCH (08:38)
[2018-10-30] MEDS: methylPREDNISolone SOD SUCCI 40 MG/ML 1 ML VIAL IV SCH ×2 (08:39→16:28)
[2018-10-30] MEDS: ENOXAPARIN 40 MG/0.4 ML SYRINGE SQ SCH (08:39)
[2018-10-30 09:10] LABS: Hemoglobin A1C 4.7
[2018-10-30 10:55] VITALS: RESP 20
[2018-10-30 11:13] LABS: Glucose,Whole Blood 133 mg/dL (75-99)
--- NOTE | 2018-10-30 11:38 | PN ---
PROGRESS NOTE This is a 53-year-old gentleman who is admitted to hospital with severe COPD exacerbation that we were consulted because of mild troponin elevation. This morning he is feeling better. Shortness of breath has improved and his admission seemed to be primarily related to COPD exacerbation. Echo shows normal LV function and no evidence of wall motion abnormalities. PHYSICAL EXAMINATION: On exam, comfortable at rest. Vital signs are stable. Chest exam reveals bilateral wheezes, but much improved since yesterday. Heart exam reveals first and second heart sounds. No gallop. Examination of the extremities did not reveal any edema. Peripheral pulses are palpable. LABS: Labs show a hemoglobin of 14.8. Electrolytes show a potassium of 5, BUN is 26, creatinine is 0.5. EKG on this admission reveals sinus rhythm and is within normal limits. ASSESSMENT: 1. Elevated troponin secondary to supply-demand mismatch in a patient with hypoxia related to severe chronic obstructive pulmonary disease exacerbation. 2. Chronic obstructive pulmonary disease exacerbation. PLAN: Patient is doing better. Continue on current medications. On discharge I will arrange followup with Dr. Payton his primary lunchroom operator. MMAUDELIAL / IJN: [id number] /
[2018-10-30] MEDS: CYANOCOBALAMIN 500 MCG TAB PO SCH (11:48)
[2018-10-30 14:54] VITALS: BP 142/88; TEMP 97.1
--- NOTE | 2018-10-30 14:55 | P.PN ---
Subjective Progress Note Date: 10/30/18 Principal diagnosis: Acute exacerbation of chronic obstructive pulmonary disease, complicated by purulent tracheobronchitis without evidence of pneumonia. This is a very pleasant 53-year-old gentleman who follows with Dr. Hewitt in our office for a history of stage II/III COPD. FEV1 approximately 50% of predicted. He also follows with Dr. Jay Quezada for his primary care needs. He presented here on 10/28/2018 for COPD exacerbation complicated by purulent tracheobronchitis. No clear evidence of pneumonia. He is seen again today in follow-up on the selective care unit. He is awake and alert in no acute distress. He still has some dyspnea on exertion. Some mild wheezing. Chest x- ray shows some basilar atelectasis with chronic interstitial lung disease versus mild venous congestion and pulmonary arterial hypertension. He is maintaining O2 saturations in the 90s on 6 L/m per nasal cannula. He is afebrile. Hemodynamically stable. Bicarb 35. Creatinine 0.57. He is continued on DuoNeb inhalations, Pulmicort and Perforomist inhalations, IV Solu- Medrol, empiric antibiotics in the form of ceftriaxone and azithromycin. Objective - Vital Signs Vital signs: Vital Signs Temp 96.5 F L 10/30/18 08:10 Pulse 68 10/30/18 11:45 Resp 20 10/30/18 08:10 BP 149/83 10/30/18 08:10 Pulse Ox 91 L 10/30/18 08:10 Intake & Output 10/29/18 10/30/18 10/30/18 18:59 06:59 18:59 Intake Total 460 120 Balance 460 120 Weight 98.7 kg Intake: Intake, IV Titration 100 Amount cefTRIAXone 1,000 mg In 100 Sodium Chloride 0.9% 50 ml @ 100 mls/hr IVPB Q24HR [facility] Rx#:[id number] Oral 360 120 Other: Voiding Method Urinal Toilet Urinal # Voids 2 - Exam GENERAL EXAM: Alert, pleasant 53-year-old gentleman, comfortable in no apparent distress. HEAD: Normocephalic. EYES: Normal reaction of pupils, equal size. NOSE: Clear with pink turbinates. THROAT: No erythema or exudates. NECK: No masses, no JVD. CHEST: No chest wall deformity. LUNGS: Equal air entry with bilateral wheezing, diminished CVS: S1 and S2 normal with no audible murmur, regular rhythm. ABDOMEN: No hepatosplenomegaly, normal bowel sounds, no guarding or rigidity. SPINE: No scoliosis or deformity SKIN: No rashes CENTRAL NERVOUS SYSTEM: No focal deficits, tone is normal in all 4 extremities. EXTREMITIES: There is no peripheral edema. No clubbing, no cyanosis. Peripheral pulses are intact. - Labs CBC & Chem 7: 10/28/18 09:44 10/30/18 05:46 Labs: Abnormal Lab Results - Last 24 Hours (Table) 10/29/18 10/29/18 10/30/18 Range/Units 17:01 21:12 05:46 Chloride 96 L (98-107) mmol/L Carbon Dioxide 35 H (22-30) mmol/L BUN 26 H (9-20) mg/dL Creatinine 0.57 L (0.66-1.25) mg/dL Glucose 153 H (74-99) mg/dL POC Glucose (mg/dL) 139 H 166 H (75-99) mg/dL 10/30/18 10/30/18 Range/Units 05:50 11:11 Chloride (98-107) mmol/L Carbon Dioxide (22-30) mmol/L BUN (9-20) mg/dL Creatinine (0.66-1.25) mg/dL Glucose (74-99) mg/dL POC Glucose (mg/dL) 159 H 133 H (75-99) mg/dL Assessment and Plan Assessment: Impression: #1 Acute exacerbation of chronic obstructive pulmonary disease complicated by purulent tracheobronchitis. No clear evidence of pneumonia. #2 History of previous heavy chronic tobacco dependence. #3 Morbid obesity. #4 Hyperlipidemia. #5 Hypertension. #6 Vitamin D deficiency. Plan: The patient was seen and evaluated by Dr. Hewitt. He is improved from the pulmonary standpoint. He is cleared for discharge. He will continue with his home oxygen and nebulized treatments. Continue prednisone burst and taper. Complete a course of antibiotics. Follow-up in our office in 1 week time. He is however encouraged to call sooner with any recurrence of symptoms or other questions or concerns. I, the cosigning physician, performed a history & physical examination of the patient. Lungs sounds with bilateral end expiratory wheeze, diminished. Maintaining good O2 saturations in the 90s on 6 L/m per nasal cannula. I discussed the assessment and plan of care with my nurse practitioner, Akua Medrano. I attest to the above note as dictated by her.
[2018-10-30 15:42] VITALS: PULSE 75
--- NOTE | 2018-10-30 17:04 | CDI ---
Documentation Clarification Form Date: 10/30/2018 4:39:43 PM From: Valorie Peterson RN, CCDS Admit Date: 10/28/2018 9:34:00 AM Patient Name: Basilio Disla Visit Number: [id number] Discharge Date: ATTENTION: The Clinical Documentation Specialists (CDI) and [facility] Coding Staff appreciate your assistance in clarifying documentation. Please respond to the clarification below the line at the bottom and electronically sign. The CDI & [facility] Coding staff will review the response and follow-up if needed. Please note: Queries are made part of the Legal Health Record. If you have any questions, please contact the author of this message via ITS. Dr. Rad Beltran 10/29/18 your consult and progress notes has troponin elevation probably related to COPD exacerbation, hypoxia and supply demand mismatch The patient presented with progressive worsening shortness of breath, cough wheezing and sputum production. History/Risk Factors: COPD, Hypertension, Dyslipidemia Clinical Indicators: Cardiology was consulted because of troponin elevation 0.137, 0.133 Chest x-ray: Chronic parenchymal changes and cardiomegaly, with suspected new mild central vascular congestion, correlate clinically for acute CHF exacerbation. Vital Signs: 148/102 86 25 97.9 94 % BIPAP Treatment: ECHO EF 55-60 % ASA Coreg PO Monitor O2 Sat's (titrate Lipitor PO In order to capture the severity of the condition and necessary documentation specificity. In your professional opinion, can you please clarify if the supply and demand mismatch is? Type 2 NE Demand Ischemia without NE Other, please specify Unable to determine (Last Revision: January 2018) MTDD
--- NOTE | 2018-10-30 17:26 | CDI ---
Documentation Clarification Form Date: 10/30/18 From: Valorie Peterson RN, CCDS Admit Date: 10/28/2018 9:34:00 AM Patient Name: Basilio Disla Visit Number: [id number] Discharge Date: ATTENTION: The Clinical Documentation Specialists (CDI) and [facility] Coding Staff appreciate your assistance in clarifying documentation. Please respond to the clarification below the line at the bottom and electronically sign. The CDI & [facility] Coding staff will review the response and follow-up if needed. Please note: Queries are made part of the Legal Health Record. If you have any questions, please contact the author of this message via ITS. Dr. Al Hewitt Possible mild congestive heart failure is documented in your consult report on 10/29/18. History/Risk Factor: COPD, Hypertension, Hyperlipidemia, Chronic hypoxic respiration failure on home O2, Chronic tobacco dependence Clinical Indicators: Present with complaints of shortness of breath, wheezing, weak, tired and fatigued. He had mild leg edema. There is no jugular venous distention. Chest exam reveals diffuse bilateral rhonchi. VS/Pulse OX: 148/102 86 25 97.9 94 % BIPAP, BNP: 186 Echocardiogram Results: EF 55-60 % Chest X Ray: Chronic parenchymal changes and cardiomegaly redemonstrated with suspected new mild central vascular congestion, correlate clinically for acute CHF exacerbation. Treatment: Coreg PO Monitor O2 Sats (titrate) Lasix IV X2 In your professional opinion, can you please clarify the acuity and type of CHF if known? Diastolic Heart Failure: Acute Chronic Acute on Chronic Unable to Determine Other, please specify CHF ruled out (Last Revision: January 2018) Acute on chronic suspected diastolic congestive heart failure MTDD
--- NOTE | 2018-10-31 10:50 | DS ---
DISCHARGE SUMMARY DATE OF ADMISSION: 10/28/2018 DATE OF DISCHARGE: 10/30/2018 FINAL DIAGNOSES: 1. Acute bilateral pneumonia suspect gram-negative organism, present on admission. 2. Acute hypoxic respiratory failure from pneumonia. 3. Chronic hypoxic respiratory failure from underlying COPD with associated hypercapnia. 4. Acute severe chronic obstructive pulmonary disease exacerbation in a smoker. 5. Obesity; body mass index 32.5. 6. Essential hypertension. 7. Hyperkalemia, improved. 8. Troponin leak, probably from hemodynamic mismatch. HOSPITAL COURSE: This is a patient who is a smoker, transferred here from [facility], very short of breath. Initially required a BiPAP, found to have a bilateral pneumonia. Responded well to oxygen, bronchodilators, steroids, antibiotics. A 2D echo showed preserved LV function. Patient had a bit of a troponin leak, felt to be from hemodynamic mismatch. The patient was seen by Dr. Hewitt from Pulmonary; Dr. Beltran from Cardiology and cleared to be discharged. Patient doing much better. Very keen to go home. Patient was counseled about cessation of smoking. PHYSICAL EXAMINATION: Temperature 97.1, pulse 93, respiratory rate 20, blood pressure 142/88, pulse ox 92% on 4 L. RESPIRATORY: Effort increased. LUNGS: Decreased breath sounds. LABS: Potassium 5, LDL 104. DISCHARGE MEDICATIONS: 1. Ventolin 2.5 q.i.d. p.r.n. 2. Vitamin C 500 mg p.o. b.i.d. 3. Aspirin 81 mg p.o. q.h.s. 4. Vitamin D3 five thousand units p.o. daily. 5. Vitamin B12 one thousand mcg p.o. daily. 6. Vitamin D2 fifty thousand units on Friday. 7. Magnesium oxide 250 mg q.h.s. 8. Fish oil 1000 mg p.o. soft gel. 9. Pulmicort 0.5 mg b.i.d. 10.Lipitor 20 mg p.o. daily. 11.Coreg 25 mg b.i.d. 12.Motrin 200 mg p.o. daily. 13.Ceftin 500 mg b.i.d., 10 tablets. 14.DuoNeb t.i.d. 15.Prednisone taper. 16.Home oxygen to continue. FOLLOWUP: Follow up with Dr. Payton on ; follow up with Dr. Hewitt in 1 week. Follow up with Dr. Jay Quezada in 3 days. Discussion and discharge planning more than 35 minutes. MMODL / IJN: [id number] /
--- NOTE | 2018-11-02 09:43 | CDI ---
Documentation Clarification Form Date: 10/30/2018 4:39:00 PM From: Valorie Peterson RN, CCDS Admit Date: 10/28/2018 9:34:00 AM Patient Name: Basilio Disla Visit Number: [id number] Discharge Date: 10/30/2018 6:32:00 PM ATTENTION: The Clinical Documentation Specialists (CDI) and [facility] Coding Staff appreciate your assistance in clarifying documentation. Please respond to the clarification below the line at the bottom and electronically sign. The CDI & [facility] Coding staff will review the response and follow-up if needed. Please note: Queries are made part of the Legal Health Record. If you have any questions, please contact the author of this message via ITS. Dr. Rad Beltran 10/29/18 your consult and progress notes has troponin elevation probably related to COPD exacerbation, hypoxia and supply demand mismatch The patient presented with progressive worsening shortness of breath, cough wheezing and sputum production. History/Risk Factors: COPD, Hypertension, Dyslipidemia Clinical Indicators: Cardiology was consulted because of troponin elevation 0.137, 0.133 Chest x-ray: Chronic parenchymal changes and cardiomegaly, with suspected new mild central vascular congestion, correlate clinically for acute CHF exacerbation. Vital Signs: 148 102 86 25 97.9 94 % BIPAP Treatment: ECHO EF 55-60 % ASA Coreg PO Monitor O2 Sat's (titrate Lipitor PO In order to capture the severity of the condition and necessary documentation specificity, in your professional opinion, can you please clarify if the supply and demand mismatch is? Type 2 RI Demand Ischemia without RI Other, please specify Unable to determine (Last Revision: January 2018) demand ischemia MTDD
== END 2018-10-30 18:32 | disposition home or self-care (01) | DRG 177 ==
LOC: EC 09:16 → SUPCPDRO 09:16 → 3SCARD 09:34
PROVIDERS: ADMIT Hospitalist; ATTEND Hospitalist
PROC: 5A09357 Assistance with Respiratory Ventilation, Less than 24 Consecutive Hours, Continuous Positive Airway Pressure (ICD-10-PCS; principal; 2018-10-28)
DX: J15.6 Pneumonia due to other Gram-negative bacteria (principal); J96.21 Acute and chronic respiratory failure with hypoxia; J96.22 Acute and chronic respiratory failure with hypercapnia; I50.33 Acute on chronic diastolic (congestive) heart failure; J44.1 Chronic obstructive pulmonary disease with (acute) exacerbation; J44.0 Chronic obstructive pulmonary disease with (acute) lower respiratory infection; I24.8 Other forms of acute ischemic heart disease; E55.9 Vitamin D deficiency, unspecified; E66.01 Morbid (severe) obesity due to excess calories; E78.5 Hyperlipidemia, unspecified; E87.5 Hyperkalemia; I11.0 Hypertensive heart disease with heart failure; F17.200 Nicotine dependence, unspecified, uncomplicated; Z79.899 Other long term (current) drug therapy; Z79.82 Long term (current) use of aspirin; Z79.51 Long term (current) use of inhaled steroids; Z68.32 Body mass index [BMI] 32.0-32.9, adult; Z82.49 Family history of ischemic heart disease and other diseases of the circulatory system; Z99.81 Dependence on supplemental oxygen; Z71.6 Tobacco abuse counseling
CPT/HCPCS: 36600; 71045; 71046; 80048; 80053; 80061; 82550; 82553; 82805; 83036; 83735; 83880; 84484; 85025; 85610; 85730; 93306; 94640; 94644; 94660; 94760; 96361; 96365; 96366; 96375; 99291

== ENCOUNTER 2019-01-21 10:52 | Day surgery (SDC) | payer OTHER ==
[2019-01-15 15:58] VITALS: BMI 34.9
[~2019-01-21 10:52] MED LIST: ALPRAZolam 0.25 MG TAB PO PRN; ALPRAZolam 0.5 MG TAB PO PRN; ASPIRIN 325 MG TAB PO STA; ATORVASTATIN 80 MG TAB PO STA; NITROGLYCERIN SL TABS 0.4 MG TAB SUBLINGUAL PRN; SODIUM CHLORIDE 0.9% 1,000 ML in EMPTY BAG 1 BAG IV ONE
[2019-01-21 11:30] VITALS: TEMP 98.1
[2019-01-21 11:51] LABS: Anisocytosis Slight; Basophils % (A) 1 %; Eosinophils # (A) 0.4 k/uL (0-0.7); Eosinophils % (A) 5 %; HCT 42.8 % (39.0-53.0); HGB 14.6 gm/dL (13.0-17.5); Lymphocytes # (A) 2.1 k/uL (1.0-4.8); Lymphocytes % (A) 24 %; MCH 31.5 pg (25.0-35.0); MCV 92.6 fL (80.0-100.0); Mean Platelet Volume 7.8; Monocytes # (A) 0.7 k/uL (0-1.0); Monocytes % (A) 8 %; Neutrophils # (A) 5.5 k/uL (1.3-7.7); Neutrophils % (A) 61 %; Platelet Count 194 k/uL (150-450); Poikilocytosis Slight; RBC 4.62 m/uL (4.30-5.90); RDW 16.2 % (11.5-15.5)
[2019-01-21 12:00] LABS: Anion Gap 7 mmol/L; Blood Urea Nitrogen 16 mg/dL (9-20); Calcium 9.7 mg/dL (8.4-10.2); Carbon Dioxide 28 mmol/L (22-30); Chloride 104 mmol/L (98-107); Glucose 93 mg/dL (74-99); Potassium 4.4 mmol/L (3.5-5.1); Sodium 139 mmol/L (137-145)
[2019-01-21] MEDS ORDERED: VERAPAMIL 2.5 MG/ML 2 ML AMP ONE (13:17)
[2019-01-21] MEDS ORDERED: LIDOCAINE 1% INJ 10MG/ML (20 ML MDV) ONE (13:17)
[2019-01-21] MEDS ORDERED: MIDAZOLAM 2 MG/2 ML VIAL IV ONE ×2 (13:25→13:29)
[2019-01-21] MEDS ORDERED: LIDOCAINE 1% INJ 10MG/ML (20 ML MDV) SQ ONE (13:26)
[2019-01-21] MEDS ORDERED: VERAPAMIL SYRINGE (5 MG/10 ML) INTRAARTER ONE (13:28)
[2019-01-21] MEDS ORDERED: HEPARIN SODIUM 1,000 UN/ML (10ML VL) ONE (13:30)
[2019-01-21] MEDS ORDERED: HEPARIN SODIUM 1,000 UN/ML (10ML VL) IV ONE (13:31)
[2019-01-21] MEDS ORDERED: IOPAMIDOL-370 150ML BTL INJ ONE (13:37)
[2019-01-21] MEDS ORDERED: RX INFO: IV CONTRAST WAS GIVEN 1 EACH MISC MISCELLANE PRN (13:44)
[2019-01-21] MEDS ORDERED: SODIUM CHLORIDE 0.9% 1,000 ML IV SCH (13:45)
[2019-01-21 14:31] VITALS: RESP 18
--- NOTE | 2019-01-21 14:31 | CC ---
CARDIAC CATHETERIZATION REPORT DATE OF SERVICE: 01/21/2019 PERFORMING PHYSICIAN: Connor Payton MD, Manager File. PROCEDURE PERFORMED: 1. Selective right and left coronary angiogram. 2. Left heart catheterization. INDICATION: This is a 53-year-old gentleman with history of hypertension and dyslipidemia, was admitted to the hospital recently with pneumoniae and was found to have abnormal cardiac enzymes. He was treated medically at that point. He underwent myocardial perfusion imaging stress test as an outpatient and that revealed anterior ischemia and because of that, a heart catheterization was advised. APPROACH: Right radial artery. COMPLICATION: None. LEVEL OF SEDATION: Moderate with sedation length of 13 minutes. PROCEDURE DESCRIPTION: After obtaining an informed consent, the patient was brought to the cardiac labor contract analyst. The right radial artery was cannulated using micropuncture technique and a micropuncture wire passed easily, then I placed a 6-Iranian sheath in the right radial artery. After that, I did selective right and left coronary angiogram using JR4 and JL3.5 catheters. The procedure was completed without any complication. SELECTIVE CORONARY ANGIOGRAM: 1. The right coronary artery is a large caliber vessel. It is a dominant vessel and appeared to be angiographically normal. Distally bifurcates into PDA and PLV branches, both appeared to be angiographically normal. 2. The left main is angiographically normal. It bifurcates into left circumflex, ramus intermedius, and left anterior descending artery. 3. The left circumflex is a large caliber vessel. It is a nondominant vessel. The left circumflex appeared to be angiographically normal. 4. The ramus intermedius is a large caliber vessel, appeared to be angiographically as well. 5. The LAD:proximally appeared to be angiographically normal. The mid and distal LAD appeared to be angiographically as well. The LAD give rise into three diagonal branches and they appeared to be angiographically normal. HEMODYNAMICS: The left ventricular end-diastolic pressure was 8 mmHg and no significant gradient was identified across the aortic valve. CONCLUSION: 1. Normal coronary angiogram. 2. Normal left ventricular end-diastolic pressure. POSTPROCEDURE MANAGEMENT: 1. Maximize medical treatment. 2. Follow up with the patient. MMODL / IJN: [id number] /
--- NOTE | 2019-01-21 14:31 | LTR ---
DATE OF SERVICE: RE: Basilio Disla Dear Dr. Quezada; Mr. Basilio Disla underwent today heart catheterization and that revealed normal coronaries. I want to thank you for allowing me to participate in his care and please do not hesitate to call if you have any question or concern. Sincerely, MD KAYAL Camacho / RANDELLN: [id number] /
[2019-01-21 15:09] VITALS: PULSE 74
[2019-01-21 15:43] VITALS: BP 141/64
== END 2019-01-21 18:40 | disposition home or self-care (01) ==
LOC: CATHCVL 10:52
PROVIDERS: ATTEND Internal Medicine Interventional Cardiology
DX: I20.0 Unstable angina (principal); R94.39 Abnormal result of other cardiovascular function study; I11.0 Hypertensive heart disease with heart failure; I50.32 Chronic diastolic (congestive) heart failure; E78.5 Hyperlipidemia, unspecified; E78.00 Pure hypercholesterolemia, unspecified; F17.210 Nicotine dependence, cigarettes, uncomplicated; Z79.82 Long term (current) use of aspirin; Z79.899 Other long term (current) drug therapy
CPT/HCPCS: 93458; 80048; 85025; C1769; C1894; J2250; J2001; J1644; Q9967

== ENCOUNTER 2022-01-13 18:14 | Inpatient (IN) | payer OTHER ==
--- NOTE | 2022-01-13 18:56 | XR ---
EXAMINATION TYPE: XR chest 1V portable DATE OF EXAM: 01/13/2022 COMPARISON: 10/30/2018 HISTORY: Short of breath TECHNIQUE: 2 views FINDINGS: Heart is enlarged. There are chest leads. There are no hilar masses. Costophrenic angles ar e clear. Bony thorax is intact. IMPRESSION: Cardiomegaly. No active cardiopulmonary disease. Heart appears significantly increased co mpared to old exam.
[2022-01-13 19:02] LABS: ALT 37 U/L (4-49); AST 53 U/L (17-59); African American GFR (CKD) >90 (>60 ml/min/1.73 sqM); Albumin 4.1 g/dL (3.5-5.0); Alkaline Phosphatase 180 U/L (38-126); Anion Gap 11 mmol/L; Blood Urea Nitrogen 29 mg/dL (9-20); Calcium 9.3 mg/dL (8.4-10.2); Carbon Dioxide 34 mmol/L (22-30); Chloride 91 mmol/L (98-107); Glucose 127 mg/dL (74-99); INR 1.1 (<1.2); Magnesium 2.1 mg/dL (1.6-2.3); Non-African American GFR(CKD) >90 (>60 ml/min/1.73 sqM); Partial Thromboplastin Time 24.3 sec (22.0-30.0); Potassium 5.2 mmol/L (3.5-5.1); Prothrombin Time 11.8 sec (9.0-12.0); Sodium 136 mmol/L (137-145); Total Bilirubin 1.5 mg/dL (0.2-1.3); Total Protein 7.9 g/dL (6.3-8.2)
[2022-01-13 19:05] LABS: Anisocytosis Slight; Basophils % (A) 1 %; Eosinophils # (A) 0.3 k/uL (0-0.7); Eosinophils % (A) 3 %; HCT 49.3 % (39.0-53.0); HGB 14.9 gm/dL (13.0-17.5); Hypochromasia Marked; Lymphocytes # (A) 0.7 k/uL (1.0-4.8); Lymphocytes % (A) 9 %; MCH 27.2 pg (25.0-35.0); MCHC 30.2 g/dL (31.0-37.0); Mean Platelet Volume 8.2; Monocytes # (A) 0.8 k/uL (0-1.0); Monocytes % (A) 9 %; Neutrophils # (A) 6.3 k/uL (1.3-7.7); Neutrophils % (A) 74 %; Platelet Count 180 k/uL (150-450); Poikilocytosis Moderate; RBC 5.48 m/uL (4.30-5.90); WBC 8.5 k/uL (3.8-10.6)
[2022-01-13] MEDS ORDERED: FUROSEMIDE 10 MG/ML 10 ML VIAL IV STA (19:56)
[2022-01-13] MEDS ORDERED: NALOXONE 0.4 MG/ML 1 ML VIAL IV PRN (20:32)
--- NOTE | 2022-01-13 20:32 | ED ---
SOB HPI - General Chief Complaint: Shortness of Breath Stated Complaint: bilat leg swelling, SOB Time Seen by Provider: 01/13/22 18:21 Source: patient Mode of arrival: ambulatory Limitations: no limitations - History of Present Illness Initial Comments: 56-year-old male with past medical history of COPD who wears 2 L of home O2 at night, CHF presents emergency Department with worsening shortness of breath. He states that it has been going on for the past month however got progressively worse over the past week. Patient has been wearing his oxygen constantly. He has had significant weight gain, worsening lower extremity edema which has now ascended up to his abdomen and scrotum. He has been taking hydrochlorothiazide as directed and denies any missed doses. He denies any chest pain. No fevers or chills. Does admit to a nonproductive cough. No sick contacts with similar symptoms. No history of DVT or PE. states that he has a very poor diet. Patient's ate an entire package of bologna the other day. No other alleviating, precipitating or modifying factors - Related Data Home Medications Medication Instructions Recorded Confirmed Albuterol Nebulized [Ventolin 2.5 mg INHALATION RT-TID 07/09/17 01/13/22 Nebulized] Aspirin EC [Ecotrin Low Dose] 81 mg PO HS 07/09/17 01/13/22 Cyanocobalamin (Vitamin B-12) 1,000 mcg PO DAILY 07/09/17 01/13/22 [Vitamin B-12] Ergocalciferol (Vitamin D2) 50,000 unit PO WE 07/09/17 01/13/22 [Vitamin D2] Magnesium Oxide [Mag-Ox] 500 mg PO DAILY 07/09/17 01/13/22 carvediloL 25 mg PO BID 10/28/18 01/13/22 Multivitamins, Thera [Multivitamin 1 tab PO DAILY 01/15/19 01/13/22 (formulary)] hydroCHLOROthiazide 50 mg PO DAILY 01/15/19 01/13/22 Ascorbic Acid [Vitamin C] 1,000 mg PO BID 01/13/22 01/13/22 Cholecalciferol [Vitamin D3 (125 125 mcg PO DAILY 01/13/22 01/13/22 Mcg = 5000 Iu)] Fish Oil/Dha/Epa [Fish Oil 1,200 1 cap PO BID 01/13/22 01/13/22 mg Fish Oil] Allergies Allergy/AdvReac Type Severity Reaction Status Date / Time ANURAG Inhibitors Allergy Anaphylaxis Verified 01/13/22 19:57 lisinopril Allergy Anaphylaxis Verified 01/13/22 19:57 Review of Systems ROS Statement: Those systems with pertinent positive or pertinent negative responses have been documented in the HPI. ROS Other: All systems not noted in ROS Statement are negative. Past Medical History Past Medical History: Heart Failure, COPD, Hyperlipidemia, Hypertension, Pneumonia Additional Past Medical History / Comment(s): uses oxygen NC at 2L at night, History of Any Multi-Drug Resistant Organisms: None Reported Past Surgical History: No Surgical Hx Reported Past Anesthesia/Blood Transfusion Reactions: No Reported Reaction Additional Past Anesthesia/Blood Transfusion Reaction / Comment(s): Pt has never had anesthesia. Past Psychological History: No Psychological Hx Reported Smoking Status: Current every day smoker, Former smoker Past Alcohol Use History: Occasional Past Drug Use History: None Reported - Past Family History Mother Family Medical History: No Reported History Additional Family Medical History / Comment(s): . Father Family Medical History: Vascular Disorder Additional Family Medical History / Comment(s): Father at the age of 60yrs a couple days after vascular surgery. General Exam Limitations: no limitations Course Vital Signs 01/13/22 01/13/22 01/13/22 18:16 18:33 20:19 Temperature 98 F Pulse Rate 122 H 82 77 Respiratory 24 30 H 28 H Rate Blood Pressure 148/81 124/91 128/80 O2 Sat by Pulse 78 L 91 L 88 L Oximetry Medical Decision Making - Medical Decision Making Upon arrival patient was placed into trauma 1. He does have oxygen saturation of 78% on 3 L. Patient is placed on BiPAP due to his increased work of breathing. IV access is established laboratory studies were conducted. BNP elevated at 5290. Potassium mildly elevated at 5.2. Chest x-ray is visualized by myself which demonstrates cardiomegaly and significant pulmonary edema. Patient is given 60 mg of Lasix. He does have significant improvement in his breathing and therefore we do titrate down on the FiO2. Patient will be admitted to Dr. Crum who presents to the emergency department to see the patient. Patient remained in stable condition awaiting a bed on the floor - Lab Data Result diagrams: 01/13/22 18:37 01/13/22 18:37 Lab Results 01/13/22 01/13/22 01/13/22 Range/Units 18:37 18:37 18:37 WBC 8.5 (3.8-10.6) k/uL RBC 5.48 (4.30-5.90) m/uL Hgb 14.9 (13.0-17.5) gm/dL Hct 49.3 (39.0-53.0) % MCV 90.0 (80.0-100.0) fL MCH 27.2 (25.0-35.0) pg MCHC 30.2 L (31.0-37.0) g/dL RDW 18.0 H (11.5-15.5) % Plt Count 180 (150-450) k/uL MPV 8.2 Neutrophils % 74 % Lymphocytes % 9 % Monocytes % 9 % Eosinophils % 3 % Basophils % 1 % Neutrophils # 6.3 (1.3-7.7) k/uL Lymphocytes # 0.7 L (1.0-4.8) k/uL Monocytes # 0.8 (0-1.0) k/uL Eosinophils # 0.3 (0-0.7) k/uL Basophils # 0.0 (0-0.2) k/uL Hypochromasia Marked Poikilocytosis Moderate Anisocytosis Slight PT 11.8 (9.0-12.0) sec INR 1.1 (<1.2) APTT 24.3 (22.0-30.0) sec Sodium 136 L (137-145) mmol/L Potassium 5.2 H (3.5-5.1) mmol/L Chloride 91 L (98-107) mmol/L Carbon Dioxide 34 H (22-30) mmol/L Anion Gap 11 mmol/L BUN 29 H (9-20) mg/dL Creatinine 0.75 (0.66-1.25) mg/dL Est GFR (CKD-EPI)AfAm >90 (>60 ml/min/1.73 sqM) Est GFR (CKD-EPI)NonAf >90 (>60 ml/min/1.73 sqM) Glucose 127 H (74-99) mg/dL Plasma Lactic Acid Ivan (0.7-2.0) mmol/L Calcium 9.3 (8.4-10.2) mg/dL Magnesium 2.1 (1.6-2.3) mg/dL Total Bilirubin 1.5 H (0.2-1.3) mg/dL AST 53 (17-59) U/L ALT 37 (4-49) U/L Alkaline Phosphatase 180 H (38-126) U/L Troponin I (0.000-0.034) ng/mL NT-Pro-B Natriuret Pep pg/mL Total Protein 7.9 (6.3-8.2) g/dL Albumin 4.1 (3.5-5.0) g/dL 01/13/22 01/13/22 01/13/22 Range/Units 18:37 18:37 18:37 WBC (3.8-10.6) k/uL RBC (4.30-5.90) m/uL Hgb (13.0-17.5) gm/dL Hct (39.0-53.0) % MCV (80.0-100.0) fL MCH (25.0-35.0) pg MCHC (31.0-37.0) g/dL RDW (11.5-15.5) % Plt Count (150-450) k/uL MPV Neutrophils % % Lymphocytes % % Monocytes % % Eosinophils % % Basophils % % Neutrophils # (1.3-7.7) k/uL Lymphocytes # (1.0-4.8) k/uL Monocytes # (0-1.0) k/uL Eosinophils # (0-0.7) k/uL Basophils # (0-0.2) k/uL Hypochromasia Poikilocytosis Anisocytosis PT (9.0-12.0) sec INR (<1.2) APTT (22.0-30.0) sec Sodium (137-145) mmol/L Potassium (3.5-5.1) mmol/L Chloride (98-107) mmol/L Carbon Dioxide (22-30) mmol/L Anion Gap mmol/L BUN (9-20) mg/dL Creatinine (0.66-1.25) mg/dL Est GFR (CKD-EPI)AfAm (>60 ml/min/1.73 sqM) Est GFR (CKD-EPI)NonAf (>60 ml/min/1.73 sqM) Glucose (74-99) mg/dL Plasma Lactic Acid Ivan 1.3 (0.7-2.0) mmol/L Calcium (8.4-10.2) mg/dL Magnesium (1.6-2.3) mg/dL Total Bilirubin (0.2-1.3) mg/dL AST (17-59) U/L ALT (4-49) U/L Alkaline Phosphatase (38-126) U/L Troponin I <0.012 (0.000-0.034) ng/mL NT-Pro-B Natriuret Pep 5290 pg/mL Total Protein (6.3-8.2) g/dL Albumin (3.5-5.0) g/dL - EKG Data EKG Comments: EKG demonstrates sinus tachycardia with a rate of 119. KS interval 146. QRS 104. QTC 355. Significant baseline artifact. Some ST depression in the anterior and inferior leads. No acute ST segment elevation Disposition Clinical Impression: Congestive heart failure, BiPAP (biphasic positive airway pressure) dependence, Hypoxia Disposition: ADMITTED IP TO THIS HOSP Condition: Serious Is patient prescribed a controlled substance at d/c from ED?: No Decision to Admit Reason: Admit from EC Decision Date: 01/13/22 Decision Time: 20:32
--- NOTE | 2022-01-13 22:21 | P.HPIM ---
History of Present Illness H&P Date: 01/13/22 Patient is a 56-year-old male with a PMH of diastolic CHF, COPD, chronic hypoxic respiratory failure on 2 L nasal cannula oxygen continuously at home, who presents to the emergency room with complaints of lower extremity edema and hypoxia. The patient reports that over the past 3-4 weeks, he has developed gradually worsening bilateral lower extremity edema which extended up to his chest over the past 2 days. He reports not being compliant with his heart failure diet and consuming a large portion of bologna last night, after which his breathing significantly worsened. He checked his SpO2 at home via finger monitor which reported 74% on 4 L nasal cannula oxygen. The patient is only prescribed hydrochlorothiazide as a diuretic and does not take Lasix at home. He reports using 6 pillows to sleep at his baseline which is unchanged. Denied fever, chills, chest pain, cough. Denied nausea, vomiting, abdominal pain, diarrhea. Laboratory evaluation was remarkable for CO2 34, BUN 29, proBNP of 5290, and troponin less than 0.012. The patient was placed on BiPAP in the emergency room. Review of systems: Pertinent positives and negatives as discussed in HPI, a complete review of systems was performed and all other systems are negative. Physical examination: General: non toxic, on BiPAP, no distress, appears older than stated age, morbidly obese Derm: no unusual rashes/lesions no unusual ecchymoses, warm, dry Head: atraumatic, normocephalic, symmetric Eyes: EOMI, no lid lag, anicteric sclera, pupils equal round reactive to light ENT: Nose and ears atraumatic, no thrush, no pharyngeal erythema Neck: No thyromegaly, no cervical lymphadenopathy, trachea midline, supple Mouth: no lip lesion, mucus membranes moist Cardiovascular: S1S2 reg, no murmur, positive posterior tibial pulse bilateral, 3+ bilateral lower extremity edema extending up to chest with subcutaneous edema, capillary refill less than 2 seconds Lungs: Bilateral rales, no wheezing or rhonchi appreciated, no accessory muscle use Abdominal: soft, nontender to palpation, no guarding, no appreciable organomegaly, normal bowel sounds Ext: no gross muscle atrophy, muscle strength 5 out of 5 in all 4 extremities grossly, no contractures, Neuro: CN II-XI grossly intact, light touch intact all 4 extremities, finger to nose within normal limits, Psych: Alert, oriented, appropriate affect Assessment/plan Acute CHF exacerbation with acute on chronic hypoxic respiratory failure -Cardiology consult -Lasix IV 40 mg every 12 hourly -Monitor electrolytes -Intake and output -Daily weights -Cardiac monitoring -Continue with BiPAP for now -Nurse education for CHF dietary modifications Elevated bicarb, suspected secondary to underlying hypercapnia -Obtain ABG DVT prophylaxis -Heparin subcu The patient is admitted with an anticipated greater than 2 midnight stay for evaluation of CHF exacerbation CODE STATUS: Full Code Discussed with: Patient Anticipated discharge date: 01/[address]: Home Past Medical History Past Medical History: Heart Failure, COPD, Hyperlipidemia, Hypertension, Pneumonia Additional Past Medical History / Comment(s): uses oxygen NC at 2L at night, History of Any Multi-Drug Resistant Organisms: None Reported Past Surgical History: No Surgical Hx Reported Past Anesthesia/Blood Transfusion Reactions: No Reported Reaction Additional Past Anesthesia/Blood Transfusion Reaction / Comment(s): Pt has never had anesthesia. Past Psychological History: No Psychological Hx Reported Smoking Status: Current every day smoker, Former smoker Past Alcohol Use History: Occasional Past Drug Use History: None Reported - Past Family History Mother Family Medical History: No Reported History Additional Family Medical History / Comment(s): . Father Family Medical History: Vascular Disorder Additional Family Medical History / Comment(s): Father at the age of 60yrs a couple days after vascular surgery. Medications and Allergies Home Medications Medication Instructions Recorded Confirmed Type Albuterol Nebulized [Ventolin 2.5 mg INHALATION RT-TID 07/09/17 01/13/22 History Nebulized] Aspirin EC [Ecotrin Low Dose] 81 mg PO HS 07/09/17 01/13/22 History Cyanocobalamin (Vitamin B-12) 1,000 mcg PO DAILY 07/09/17 01/13/22 History [Vitamin B-12] Ergocalciferol (Vitamin D2) 50,000 unit PO WE 07/09/17 01/13/22 History [Vitamin D2] Magnesium Oxide [Mag-Ox] 500 mg PO DAILY 07/09/17 01/13/22 History carvediloL 25 mg PO BID 10/28/18 01/13/22 History Multivitamins, Thera [Multivitamin 1 tab PO DAILY 01/15/19 01/13/22 History (formulary)] hydroCHLOROthiazide 50 mg PO DAILY 01/15/19 01/13/22 History Ascorbic Acid [Vitamin C] 1,000 mg PO BID 01/13/22 01/13/22 History Cholecalciferol [Vitamin D3 (125 125 mcg PO DAILY 01/13/22 01/13/22 History Mcg = 5000 Iu)] Fish Oil/Dha/Epa [Fish Oil 1,200 1 cap PO BID 01/13/22 01/13/22 History mg Fish Oil] Allergies Allergy/AdvReac Type Severity Reaction Status Date / Time ANURAG Inhibitors Allergy Anaphylaxis Verified 01/13/22 19:57 lisinopril Allergy Anaphylaxis Verified 01/13/22 19:57 Physical Exam Vitals: Vital Signs Temp Pulse Resp BP Pulse Ox 01/13/22 20:19 77 28 H 128/80 88 L 01/13/22 18:33 82 30 H 124/91 91 L 01/13/22 18:16 98 F 122 H 24 148/81 78 L Intake and Output 01/13/22 01/13/22 01/13/22 06:59 14:59 22:59 Other: Weight 102.058 kg Results CBC & Chem 7: 01/13/22 18:37 01/13/22 18:37 Labs: Abnormal Lab Results - Last 24 Hours (Table) 01/13/22 01/13/22 Range/Units 18:37 18:37 MCHC 30.2 L (31.0-37.0) g/dL RDW 18.0 H (11.5-15.5) % Lymphocytes # 0.7 L (1.0-4.8) k/uL Sodium 136 L (137-145) mmol/L Potassium 5.2 H (3.5-5.1) mmol/L Chloride 91 L (98-107) mmol/L Carbon Dioxide 34 H (22-30) mmol/L BUN 29 H (9-20) mg/dL Glucose 127 H (74-99) mg/dL Total Bilirubin 1.5 H (0.2-1.3) mg/dL Alkaline Phosphatase 180 H (38-126) U/L
[2022-01-13 22:49] LABS: ABG Base Excess 9.9 mmol/L; ABG HCO3 35 mmol/L (21-25); ABG Oxygen Saturation 88.9 % (94-97); ABG PCO2 61 mmHg (35-45); ABG PH 7.37 (7.35-7.45); ABG TCO2 37 mmol/L (19-24); Allen Test Performed? Yes
[2022-01-13 22:51] LABS: ABG PO2 59 mmHg (83-108)
[2022-01-14] MEDS ORDERED: carvediloL 12.5 MG TAB PO SCH (07:30)
[2022-01-14] MEDS ORDERED: ALBUTEROL NEBULIZED 2.5 MG/3 ML INHALATION SCH (08:00)
--- NOTE | 2022-01-14 08:19 | P.CRDCN ---
History of Present Illness Consult date: 01/14/22 History of present illness: HISTORY OF PRESENT ILLNESS: This is a 56 year old male with a past medical history significant for COPD with home oxygen use, pulmonary hypertension, hypertension, hyperlipidemia, and obesity. Patient follows in the office with Dr. Payton. We have been asked to see the patient in consultation for CHF. Patient examined at the bedside. Patient presented to the hospital with a chief complaint of shortness of breath and increased lower extremity edema. Patient reports he is usually compliant with his diet however over the past few weeks he has been eating a lot of foods that are high in salt. He states he noticed his lower summary starting to swell. He states he tried to manage this at home by elevating his extremities at night and taking his medications however he did not see much improvement so he decided to come to emergency room for further evaluation. The patient was started on IV Lasix. He states his breathing has improved this morning. He denies any chest pain or pressure. * EKG reveals sinus tachycardia with heart rate of 118 * Chest xray cardiomegaly. No active cardiopulmonary disease. Heart appears significantly increased peripheral exam. * Laboratory data: WBC 8.5. Hemoglobin 14.9. Platelet count 180. Sodium 136. Potassium 5.2. BUN 29. Creatinine 0.75. Lactic acid 1.3. Troponin negative 1. ProBNP 5290. * Current home cardiac medications include aspirin 81 mg at night, hydroch lorothiazide 50 mg daily, carvedilol 25 mg twice a day * Most recent echocardiogram obtained in 2020 at the office revealed ejection fraction 55%, mild MR, moderate tricuspid regurgitation, and severe pulmonary artery hypertension with RVSP of 89 mmHg * Cardiac catheterization history: 2019 revealing normal coronary arteries REVIEW OF SYSTEMS: At the time of my exam: CONSTITUTIONAL: Denies fever or chills. HEENT: Denies blurred vision, vision changes, or eye pain. Denies hemoptysis CARDIOVASCULAR: Denies chest pain. Denies orthopnea. Denies PND. Denies palpitat ions RESPIRATORY: Denies shortness of breath. GASTROINTESTINAL: Denies abdominal pain. Denies nausea or vomiting. HEMATOLOGIC: Denies bleeding disorders. GENITOURINARY: Denies any blood in urine. SKIN: Denies pruitis. Denies rash. PHYSICAL EXAM: VITAL SIGNS: Reviewed. GENERAL: Well-developed in no acute distress. HEENT: Head is normocephalic. Pupils are equal, round. Sclerae anicteric. Mucous membranes of the mouth are moist. Neck supple. No JVD or thyromegaly LUNGS: Respirations even and unlabored. Lungs diminished with bibasilar crackles HEART: Regular rate and rhythm. S1 and S2 heard. Soft systolic murmur. ABDOMEN: Soft. Nondistended. Nontender. EXTREMITIES: Normal range of motion. No clubbing or cyanosis. Peripheral pulses intact. 2-3+ lower extremity edema NEUROLOGIC: Awake and alert. Oriented x 3. ASSESSMENT: Shortness of breath Acute on chronic heart failure with preserved ejection fraction Pulmonary hypertension Acute on chronic hypoxic respiratory failure Hypertension Hyperlipidemia Morbid obesity Noncompliance with diet at home PLAN: Obtain 2D echo to assess cardiac structure and function Continue home cardiac medications Continue IV lasix Monitor kidney function Daily weights Accurate I&O Further recommendations pending patient course Nurse practitioner note has been reviewed by physician. Signing provider agrees with the documented findings, assessment, and plan of care. Past Medical History Past Medical History: Heart Failure, COPD, Hyperlipidemia, Hypertension, Pneumonia Additional Past Medical History / Comment(s): uses oxygen NC at 2-3L at night History of Any Multi-Drug Resistant Organisms: None Reported Past Surgical History: No Surgical Hx Reported Past Anesthesia/Blood Transfusion Reactions: No Reported Reaction Additional Past Anesthesia/Blood Transfusion Reaction / Comment(s): Pt has never had anesthesia. Past Psychological History: No Psychological Hx Reported Additional Psychological History / Comment(s): Pt currently resides with his mother for whom he is caregiver. He recently started using O2 at 3L/NC at HS but recently ATC. He has a nebulizer. He does not drive, his friends can take him to [employer]. Smoking Status: Former smoker Past Alcohol Use History: Occasional Additional Past Alcohol Use History / Comment(s): Pt states he started smoking in 1979 and quit 2017, 1 PPD Past Drug Use History: None Reported Additional Drug Use History / Comment(s): denies - Past Family History Mother Family Medical History: No Reported History Additional Family Medical History / Comment(s): . Father Family Medical History: Vascular Disorder Additional Family Medical History / Comment(s): Father at the age of 60yrs a couple days after vascular surgery. Medications and Allergies Home Medications Medication Instructions Recorded Confirmed Type Albuterol Nebulized [Ventolin 2.5 mg INHALATION RT-TID 07/09/17 01/13/22 History Nebulized] Aspirin EC [Ecotrin Low Dose] 81 mg PO HS 07/09/17 01/13/22 History Cyanocobalamin (Vitamin B-12) 1,000 mcg PO DAILY 07/09/17 01/13/22 History [Vitamin B-12] Ergocalciferol (Vitamin D2) 50,000 unit PO WE 07/09/17 01/13/22 History [Vitamin D2] Magnesium Oxide [Mag-Ox] 500 mg PO DAILY 07/09/17 01/13/22 History carvediloL 25 mg PO BID 10/28/18 01/13/22 History Multivitamins, Thera [Multivitamin 1 tab PO DAILY 01/15/19 01/13/22 History (formulary)] hydroCHLOROthiazide 50 mg PO DAILY 01/15/19 01/13/22 History Ascorbic Acid [Vitamin C] 1,000 mg PO BID 01/13/22 01/13/22 History Cholecalciferol [Vitamin D3 (125 125 mcg PO DAILY 01/13/22 01/13/22 History Mcg = 5000 Iu)] Fish Oil/Dha/Epa [Fish Oil 1,200 1 cap PO BID 01/13/22 01/13/22 History mg Fish Oil] Allergies Allergy/AdvReac Type Severity Reaction Status Date / Time ANURAG Inhibitors Allergy Anaphylaxis Verified 01/13/22 19:57 lisinopril Allergy Anaphylaxis Verified 01/13/22 19:57 Physical Exam Vitals: Vital Signs Temp Pulse Pulse Resp BP BP Pulse Ox 01/14/22 04:00 16 88 L 01/14/22 03:40 98.1 F 87 18 138/84 80 L 01/14/22 00:25 22 89 L 01/14/22 00:05 98.5 F 110 H 24 112/77 76 L 01/13/22 23:37 80 24 112/81 92 L 01/13/22 20:19 77 28 H 128/80 88 L 01/13/22 18:33 82 30 H 124/91 91 L 01/13/22 18:16 98 F 122 H 24 148/81 78 L Intake and Output 01/13/22 01/14/22 01/14/22 22:59 06:59 14:59 Intake Total 120 Output Total 300 Balance -180 Intake: Oral 120 Output: Urine 300 Other: Voiding Method External Catheter Weight 102.058 kg 121 kg Results 01/13/22 18:37 01/13/22 18:37 Cardiac Enzymes 01/13/22 01/13/22 Range/Units 18:37 18:37 AST 53 (17-59) U/L Troponin I <0.012 (0.000-0.034) ng/mL Coagulation 01/13/22 Range/Units 18:37 PT 11.8 (9.0-12.0) sec APTT 24.3 (22.0-30.0) sec CBC 01/13/22 Range/Units 18:37 WBC 8.5 (3.8-10.6) k/uL RBC 5.48 (4.30-5.90) m/uL Hgb 14.9 (13.0-17.5) gm/dL Hct 49.3 (39.0-53.0) % Plt Count 180 (150-450) k/uL Comprehensive Metabolic Panel 01/13/22 Range/Units 18:37 Sodium 136 L (137-145) mmol/L Potassium 5.2 H (3.5-5.1) mmol/L Chloride 91 L (98-107) mmol/L Carbon Dioxide 34 H (22-30) mmol/L BUN 29 H (9-20) mg/dL Creatinine 0.75 (0.66-1.25) mg/dL Glucose 127 H (74-99) mg/dL Calcium 9.3 (8.4-10.2) mg/dL AST 53 (17-59) U/L ALT 37 (4-49) U/L Alkaline Phosphatase 180 H (38-126) U/L Total Protein 7.9 (6.3-8.2) g/dL Albumin 4.1 (3.5-5.0) g/dL Current Medications Generic Name Dose Route Start Last Admin Trade Name Freq PRN Reason Stop Dose Admin Albuterol Sulfate 2.5 mg 01/14/22 08:00 Albuterol Nebulized 2.5 Mg/3 Ml INHALATION RT-TID JACQUE Aspirin 81 mg 01/14/22 21:00 Aspirin 81 Mg PO HS [facility] Carvedilol 25 mg 01/14/22 07:30 01/14/22 06:22 Carvedilol 12.5 Mg Tab PO 25 mg BID-W/MEALS JACQUE Administration Furosemide 40 mg 01/14/22 09:00 Furosemide 10 Mg/Ml 4 Ml Vial IV Q12HR JACQUE Heparin Sodium (Porcine) 5,000 unit 01/14/22 00:00 01/14/22 00:00 Heparin Sodium,Porcine/Pf 5,000 Unit/0.5 Ml Syringe SQ 5,000 unit Q8HR JACQUE Administration Hydrochlorothiazide 50 mg 01/14/22 09:00 Hydrochlorothiazide 25 Mg Tab PO DAILY [facility] Naloxone HCl 0.2 mg 01/13/22 20:32 Naloxone 0.4 Mg/Ml 1 Ml Vial IV Q2M PRN Opioid Reversal Intake and Output 01/13/22 01/14/22 01/14/22 22:59 06:59 14:59 Intake Total 120 Output Total 300 Balance -180 Intake: Oral 120 Output: Urine 300 Other: Voiding Method External Catheter Weight 102.058 kg 121 kg 01/13/22 18:37 01/13/22 18:37
[2022-01-14 08:42] LABS: Anisocytosis Slight; Basophils % (A) 1 %; Eosinophils # (A) 0.3 k/uL (0-0.7); Eosinophils % (A) 3 %; HCT 47.4 % (39.0-53.0); HGB 13.6 gm/dL (13.0-17.5); Hypochromasia Marked; Lymphocytes # (A) 0.8 k/uL (1.0-4.8); Lymphocytes % (A) 10 %; MCH 26.3 pg (25.0-35.0); MCHC 28.7 g/dL (31.0-37.0); MCV 91.7 fL (80.0-100.0); Mean Platelet Volume 8.1; Monocytes # (A) 0.8 k/uL (0-1.0); Monocytes % (A) 10 %; Neutrophils # (A) 5.9 k/uL (1.3-7.7); Neutrophils % (A) 73 %; Platelet Count 205 k/uL (150-450); Poikilocytosis Slight; RBC 5.17 m/uL (4.30-5.90); RDW 17.9 % (11.5-15.5); WBC 8.1 k/uL (3.8-10.6)
[2022-01-14 08:58] LABS: ALT 34 U/L (4-49); AST 40 U/L (17-59); African American GFR (CKD) >90 (>60 ml/min/1.73 sqM); Albumin 3.7 g/dL (3.5-5.0); Alkaline Phosphatase 136 U/L (38-126); Anion Gap 6 mmol/L; Blood Urea Nitrogen 30 mg/dL (9-20); Calcium 8.7 mg/dL (8.4-10.2); Carbon Dioxide 34 mmol/L (22-30); Chloride 96 mmol/L (98-107); Glucose 101 mg/dL (74-99); Non-African American GFR(CKD) >90 (>60 ml/min/1.73 sqM); Potassium 4.7 mmol/L (3.5-5.1); Sodium 136 mmol/L (137-145); Total Bilirubin 1.4 mg/dL (0.2-1.3); Total Protein 7.1 g/dL (6.3-8.2)
[2022-01-14] MEDS: HEPARIN SODIUM,PORCINE/PF 5,000 UNIT/0.5 ML SYRINGE SQ SCH ×4 (09:25→23:31)
[2022-01-14] MEDS: FUROSEMIDE 10 MG/ML 4 ML VIAL IV SCH ×2 (09:25→20:49)
[2022-01-14] MEDS: hydroCHLOROthiazide 25 MG TAB PO SCH (09:25)
--- NOTE | 2022-01-14 10:36 | P.PN ---
Subjective Progress Note Date: 01/14/22 Pt doing okay today. Sitting up in bed with 15L HFNC. Able to speak in full sentences, in a good mood. Understands medical situation. Ongoing diuresis. Echo pending today. Gen: awake, alert HEENT: normocephalic, atraumatic, good hearing acuity, moist mucous membranes Resp: good air exchange, breathing comfortably with no accessory muscle use CVS: good distal perfusion x 4, GI: soft, NTTP, ND : no SPT, no CVAT, godfrey catheter is present MSK: Bilateral pitting edema, no clubbing Neuro: non-focal, moving all extremities Psych: cooperative, euthymic mood Assessment/plan: Acute CHF exacerbation with acute on chronic hypoxic and hypercapnic respiratory failure -Cardiology consult -Lasix IV 40 mg every 12 hourly -Monitor electrolytes -Intake and output -Daily weights -Cardiac monitoring -On 15L HFNC -Echo pending -Nurse education for CHF dietary modifications -AB.37, pO2 59, pCO2 61 -will hold home coreg due to acute decompensated HF HTN COPD without exacerbation -Home meds were reviewed and reconciled -started on symbicort and duonebs ATC + PRN DVT prophylaxis withHeparin subcu CODE STATUS: Full Code Anticipated discharge place: Home Objective - Vital Signs Vital signs: Vital Signs Temp 98.1 F 01/14/22 03:40 Pulse 82 01/14/22 08:34 Resp 16 01/14/22 04:00 BP 138/84 01/14/22 03:40 Pulse Ox 82 L 01/14/22 08:22 Intake & Output 01/13/22 01/14/22 01/14/22 18:59 06:59 18:59 Intake Total 120 Output Total 300 Balance -180 Weight 102.058 kg 121 kg Intake: Oral 120 Output: Urine 300 Other: Voiding Method External Catheter - Labs CBC & Chem 7: 01/14/22 07:57 01/14/22 07:57 Labs: Abnormal Lab Results - Last 24 Hours (Table) 01/13/22 01/13/22 01/13/22 Range/Units 18:37 18:37 22:45 MCHC 30.2 L (31.0-37.0) g/dL RDW 18.0 H (11.5-15.5) % Lymphocytes # 0.7 L (1.0-4.8) k/uL ABG pCO2 61 H (35-45) mmHg ABG pO2 59 L* (83-108) mmHg ABG HCO3 35 H (21-25) mmol/L ABG Total CO2 37 H (19-24) mmol/L ABG O2 Saturation 88.9 L (94-97) % Sodium 136 L (137-145) mmol/L Potassium 5.2 H (3.5-5.1) mmol/L Chloride 91 L (98-107) mmol/L Carbon Dioxide 34 H (22-30) mmol/L BUN 29 H (9-20) mg/dL Glucose 127 H (74-99) mg/dL Total Bilirubin 1.5 H (0.2-1.3) mg/dL Alkaline Phosphatase 180 H (38-126) U/L 01/14/22 01/14/22 Range/Units 07:57 07:57 MCHC 28.7 L (31.0-37.0) g/dL RDW 17.9 H (11.5-15.5) % Lymphocytes # 0.8 L (1.0-4.8) k/uL ABG pCO2 (35-45) mmHg ABG pO2 (83-108) mmHg ABG HCO3 (21-25) mmol/L ABG Total CO2 (19-24) mmol/L ABG O2 Saturation (94-97) % Sodium 136 L (137-145) mmol/L Potassium (3.5-5.1) mmol/L Chloride 96 L (98-107) mmol/L Carbon Dioxide 34 H (22-30) mmol/L BUN 30 H (9-20) mg/dL Glucose 101 H (74-99) mg/dL Total Bilirubin 1.4 H (0.2-1.3) mg/dL Alkaline Phosphatase 136 H (38-126) U/L
[2022-01-14] MEDS: IPRATROPIUM-ALBUTEROL 3 ML NEB INHALATION SCH ×3 (11:38→19:34)
--- NOTE | 2022-01-14 11:42 | P.CNPUL ---
History of Present Illness Consult date: 01/14/22 Requesting physician: Celi Crum Reason for consult: dyspnea, COPD, hypoxemia Chief complaint: Diffuse anasarca. History of present illness: Pulmonary consult dated 01/14/2022. 56-year-old male who I see in the clinic periodically, for stage III COPD. The patient has an FEV1 that's 50% of predicted. The patient does use home O2, at between 2-3 L/m, but sometimes he increases it to 6 L, when he is more short of breath. The patient comes into the emergency room on January 13 complaining of increasing shortness of breath, and diffuse body edema. He's been getting worse for the last 3 or 4 weeks. He has been wearing his oxygen constantly. He is getting quite a bit of weight. He has significant swelling and increasing abdominal girth, swelling of his scrotum, and significant lower extremity edema as well. He denies any chest pain or chest discomfort. There is no fever or chills. He denies any cough or phlegm production. He apparently mentioned to the ER physician that he ate an entire package of bologna a day or 2 before admission. Past medical history is positive for CHF, severe COPD, hyperlipidemia, hypertension, pneumonia, and obesity. He also has a history of chronic hypoxemic respiratory failure. White count 8.1, hemoglobin 13.6, hematocrit 47.4, and platelet count 205,000. Blood gases show a PaO2 of 59, pCO2 of 61, and a normal pH. That was on 70% FiO2. Sodium 136, potassium 4.7, chlorides 96, CO2 34, anion gap 6, BUN 30, creatinine 0.79. Total bilirubin was 1.4. Albumin is 3.7. Chest x-ray shows cardiomegaly, and diffuse interstitial changes, likely consistent with interstitial edema. N-terminal proBNP was 5290. Review of Systems REVIEW OF SYSTEMS: CONSTITUTIONAL: [Negative.] NEUROLOGIC: [ Negative.] HEENT: [ Negative.] CARDIAC: Diffuse body edema. PULMONARY: Shortness of breath. GI: [Negative.] : [Negative.] RHEUMATOLOGIC: [ Negative.] IMMUNOLOGIC: [ Negative.] ENDOCRINE: [Negative. ] DERMATOLOGIC: [Negative.] Past Medical History Past Medical History: Heart Failure, COPD, Hyperlipidemia, Hypertension, Pneumonia Additional Past Medical History / Comment(s): uses oxygen NC at 2-3L at night History of Any Multi-Drug Resistant Organisms: None Reported Past Surgical History: No Surgical Hx Reported Past Anesthesia/Blood Transfusion Reactions: No Reported Reaction Additional Past Anesthesia/Blood Transfusion Reaction / Comment(s): Pt has never had anesthesia. Past Psychological History: No Psychological Hx Reported Additional Psychological History / Comment(s): Pt currently resides with his mother for whom he is caregiver. He recently started using O2 at 3L/NC at HS but recently ATC. He has a nebulizer. He does not drive, his friends can take him to [employer]. Smoking Status: Former smoker Past Alcohol Use History: Occasional Additional Past Alcohol Use History / Comment(s): Pt states he started smoking in 1979 and quit 2017, 1 PPD Past Drug Use History: None Reported Additional Drug Use History / Comment(s): denies - Past Family History Mother Family Medical History: No Reported History Additional Family Medical History / Comment(s): . Father Family Medical History: Vascular Disorder Additional Family Medical History / Comment(s): Father at the age of 60yrs a couple days after vascular surgery. Medications and Allergies Home Medications Medication Instructions Recorded Confirmed Type Albuterol Nebulized [Ventolin 2.5 mg INHALATION RT-TID 07/09/17 01/13/22 History Nebulized] Aspirin EC [Ecotrin Low Dose] 81 mg PO HS 07/09/17 01/13/22 History Cyanocobalamin (Vitamin B-12) 1,000 mcg PO DAILY 07/09/17 01/13/22 History [Vitamin B-12] Ergocalciferol (Vitamin D2) 50,000 unit PO WE 07/09/17 01/13/22 History [Vitamin D2] Magnesium Oxide [Mag-Ox] 500 mg PO DAILY 07/09/17 01/13/22 History carvediloL 25 mg PO BID 10/28/18 01/13/22 History Multivitamins, Thera [Multivitamin 1 tab PO DAILY 01/15/19 01/13/22 History (formulary)] hydroCHLOROthiazide 50 mg PO DAILY 01/15/19 01/13/22 History Ascorbic Acid [Vitamin C] 1,000 mg PO BID 01/13/22 01/13/22 History Cholecalciferol [Vitamin D3 (125 125 mcg PO DAILY 01/13/22 01/13/22 History Mcg = 5000 Iu)] Fish Oil/Dha/Epa [Fish Oil 1,200 1 cap PO BID 01/13/22 01/13/22 History mg Fish Oil] Allergies Allergy/AdvReac Type Severity Reaction Status Date / Time ANURAG Inhibitors Allergy Anaphylaxis Verified 01/13/22 19:57 lisinopril Allergy Anaphylaxis Verified 01/13/22 19:57 Physical Exam Osteopathic Statement: *. No significant issues noted on an osteopathic structural exam other than those noted in the History and Physical/Consult. Vitals: Vital Signs Temp Pulse Pulse Resp BP BP Pulse Ox 01/14/22 08:34 82 01/14/22 08:22 78 82 L 01/14/22 04:00 16 88 L 01/14/22 03:40 98.1 F 87 18 138/84 80 L 01/14/22 00:25 22 89 L 01/14/22 00:05 98.5 F 110 H 24 112/77 76 L 01/13/22 23:37 80 24 112/81 92 L 01/13/22 20:19 77 28 H 128/80 88 L 01/13/22 18:33 82 30 H 124/91 91 L 01/13/22 18:16 98 F 122 H 24 148/81 78 L Intake and Output 01/13/22 01/14/22 01/14/22 22:59 06:59 14:59 Intake Total 120 Output Total 300 Balance -180 Intake: Oral 120 Output: Urine 300 Other: Voiding Method External Catheter Weight 102.058 kg 121 kg Mild respiratory distress, with mild conversational dyspnea. Currently, the patient's on 15 L high flow oxygen, with saturations in the mid- 80's. HEENT examination is grossly unremarkable. Neck supple. Full range of motion. No adenopathy thyromegaly or neck vein distention. Cardiovascular examination reveals regular rhythm rate. S1-S2 normal. No S3 or S4. No discernible murmur noted. Heart sounds are very distant. Heart rate 82 bpm. Lungs reveal scattered bilateral rhonchi and crackles. Breath sounds equal bilaterally. No wheezes. Saturations are in the mid 80s, on 15 L high flow nasal O2. Abdomen obese. Bowel sounds are noted. No tenderness. Scrotum is edematous. Extremities reveal significant bilateral lower extremity edema, which actually is above the knees. Skin is without rash or lesion. Neurologic examination is brief but nonfocal. Results - Laboratory Findings CBC and BMP: 01/14/22 07:57 01/14/22 07:57 ABG ABG pH 7.37 (7.35-7.45) 01/13/22 22:45 ABG pCO2 61 mmHg (35-45) H 01/13/22 22:45 ABG pO2 59 mmHg (83-108) L* 01/13/22 22:45 ABG O2 Saturation 88.9 % (94-97) L 01/13/22 22:45 PT/INR, D-dimer PT 11.8 sec (9.0-12.0) 01/13/22 18:37 INR 1.1 (<1.2) 01/13/22 18:37 Abnormal lab findings: Abnormal Labs 01/13/22 01/13/22 01/13/22 18:37 18:37 22:45 MCHC 30.2 L RDW 18.0 H Lymphocytes # 0.7 L ABG pCO2 61 H ABG pO2 59 L* ABG HCO3 35 H ABG Total CO2 37 H ABG O2 Saturation 88.9 L Sodium 136 L Potassium 5.2 H Chloride 91 L Carbon Dioxide 34 H BUN 29 H Glucose 127 H Total Bilirubin 1.5 H Alkaline Phosphatase 180 H 01/14/22 01/14/22 07:57 07:57 MCHC 28.7 L RDW 17.9 H Lymphocytes # 0.8 L ABG pCO2 ABG pO2 ABG HCO3 ABG Total CO2 ABG O2 Saturation Sodium 136 L Potassium Chloride 96 L Carbon Dioxide 34 H BUN 30 H Glucose 101 H Total Bilirubin 1.4 H Alkaline Phosphatase 136 H - Diagnostic Findings Chest x-ray: image reviewed Assessment and Plan Assessment: Shortness of breath, likely multifactorial, in part related to congestive heart failure, diffuse anasarca, and severe COPD. Stage III COPD, with an FEV1 that is 50% of predicted. History of congestive heart failure. History of hyperlipidemia. History of hypertension. History of chronic hypoxemic respiratory failure. Obesity. Ongoing tobacco use with nicotine addiction. Plan: Plan dated 01/14/2022. The patient is currently on albuterol, and ipratropium bromide updrafts, 4 times a day and when necessary. The patient is also on Lasix at 40 mg IV push, every 12 hours, as well as Symbicort 160/4.5, 2 puffs twice a day. We will continue to follow the patient recommendations. The patient should be on no added salt diet. The patient should be weighed on a daily basis. Prognosis is guarded. Continue to follow make recommendations where appropriate. The patient didn't use BiPAP last night, twitches seemed to help. Saturations are in the mid to high 80s, he does not appear to be overwhelmingly short of breath. Time with Patient: Greater than 30
[2022-01-14] MEDS: SYMBICORT 160-4.5 MCG INHALER INHALATION SCH (19:36)
[2022-01-14] MEDS: ASPIRIN 81 MG PO SCH (20:49)
[2022-01-14] MEDS: ATORVASTATIN 40 MG TAB PO SCH (20:49)
[2022-01-15] MEDS: FUROSEMIDE 10 MG/ML 4 ML VIAL IV SCH ×2 (08:42→21:09)
[2022-01-15] MEDS: HEPARIN SODIUM,PORCINE/PF 5,000 UNIT/0.5 ML SYRINGE SQ SCH ×2 (08:42→17:27)
[2022-01-15] MEDS: hydroCHLOROthiazide 25 MG TAB PO SCH (08:42)
[2022-01-15] MEDS: SYMBICORT 160-4.5 MCG INHALER INHALATION SCH ×2 (09:21→20:19)
[2022-01-15] MEDS: IPRATROPIUM-ALBUTEROL 3 ML NEB INHALATION SCH ×4 (09:21→20:19)
--- NOTE | 2022-01-15 09:32 | P.PN ---
Subjective Progress Note Date: 01/15/22 Pt doing okay today. Sitting up in bed with BIPAP. Able to speak in full sentences, in a good mood. Understands medical situation. Ongoing diuresis. Echo pending today. Pt will try to get OOB to chair today. Gen: awake, alert HEENT: normocephalic, atraumatic, good hearing acuity, moist mucous membranes Resp: good air exchange, breathing comfortably with no accessory muscle use CVS: good distal perfusion x 4, GI: soft, NTTP, ND : no SPT, no CVAT, godfrey catheter is present MSK: Bilateral pitting edema, no clubbing Neuro: non-focal, moving all extremities Psych: cooperative, euthymic mood Assessment/plan: Acute CHF exacerbation with acute on chronic hypoxic and hypercapnic respiratory failure -Cardiology consult -Lasix IV 40 mg every 12 hourly -Monitor electrolytes -Intake and output -Daily weights -Cardiac monitoring -On BIPAP -Echo pending -Nurse education for CHF dietary modifications -AB.37, pO2 59, pCO2 61 -will hold home coreg due to acute decompensated HF HTN COPD without exacerbation -Home meds were reviewed and reconciled -started on symbicort and duonebs ATC + PRN DVT prophylaxis withHeparin subcu CODE STATUS: Full Code Anticipated discharge place: Home Objective - Vital Signs Vital signs: Vital Signs Temp 98.2 F 01/15/22 08:00 Pulse 85 01/15/22 08:00 Resp 24 01/15/22 08:00 BP 140/75 01/15/22 08:00 Pulse Ox 93 L 01/15/22 08:00 Intake & Output 01/14/22 01/15/22 01/15/22 18:59 06:59 18:59 Output Total 1300 775 Balance -1300 -775 Output: Urine 1300 775 Other: Voiding Method External Catheter External Catheter - Labs CBC & Chem 7: 01/14/22 07:57 01/14/22 07:57
[2022-01-15 09:46] LABS: African American GFR (CKD) >90 (>60 ml/min/1.73 sqM); Anion Gap 4 mmol/L; Blood Urea Nitrogen 28 mg/dL (9-20); Carbon Dioxide 39 mmol/L (22-30); Chloride 95 mmol/L (98-107); Glucose 119 mg/dL (74-99); Non-African American GFR(CKD) >90 (>60 ml/min/1.73 sqM); Potassium 4.3 mmol/L (3.5-5.1); Sodium 138 mmol/L (137-145)
[2022-01-15 09:54] LABS: Anisocytosis Slight; Basophils % (A) 0 %; Eosinophils # (A) 0.3 k/uL (0-0.7); Eosinophils % (A) 3 %; HCT 50.5 % (39.0-53.0); HGB 14.3 gm/dL (13.0-17.5); Hypochromasia Marked; Lymphocytes # (A) 0.8 k/uL (1.0-4.8); Lymphocytes % (A) 10 %; MCH 25.9 pg (25.0-35.0); MCHC 28.3 g/dL (31.0-37.0); MCV 91.7 fL (80.0-100.0); Mean Platelet Volume 8.2; Monocytes # (A) 0.7 k/uL (0-1.0); Monocytes % (A) 8 %; Neutrophils # (A) 6.3 k/uL (1.3-7.7); Neutrophils % (A) 75 %; Platelet Count 192 k/uL (150-450); Poikilocytosis Slight; RDW 17.6 % (11.5-15.5); WBC 8.3 k/uL (3.8-10.6)
--- NOTE | 2022-01-15 11:01 | P.PN ---
Subjective Progress Note Date: 01/15/22 Principal diagnosis: Shortness of breath. Pulmonary consult dated 01/14/2022. 56-year-old male who I see in the clinic periodically, for stage III COPD. The patient has an FEV1 that's 50% of predicted. The patient does use home O2, at between 2-3 L/m, but sometimes he increases it to 6 L, when he is more short of breath. The patient comes into the emergency room on January 13 complaining of increasing shortness of breath, and diffuse body edema. He's been getting worse for the last 3 or 4 weeks. He has been wearing his oxygen constantly. He is getting quite a bit of weight. He has significant swelling and increasing abdominal girth, swelling of his scrotum, and significant lower extremity edema as well. He denies any chest pain or chest discomfort. There is no fever or chills. He denies any cough or phlegm production. He apparently mentioned to the ER physician that he ate an entire package of bologna a day or 2 before admission. Past medical history is positive for CHF, severe COPD, hyperlipidemia, hypertension, pneumonia, and obesity. He also has a history of chronic hypoxemic respiratory failure. White count 8.1, hemoglobin 13.6, hematocrit 47.4, and platelet count 205,000. Blood gases show a PaO2 of 59, pCO2 of 61, and a normal pH. That was on 70% FiO2. Sodium 136, potassium 4.7, chlorides 96, CO2 34, anion gap 6, BUN 30, creatinine 0.79. Total bilirubin was 1.4. Albumin is 3.7. Chest x-ray shows cardiomegaly, and diffuse interstitial changes, likely consistent with interstitial edema. N-terminal proBNP was 5290. Progress note dated 01/15/2022. This is a 56-year-old male, again seen in room 369. He has a history of severe stage III COPD, with an FEV1 percent, that is 50% of predicted. He does have chronic hypoxemic respiratory failure, and does use home oxygen at between 2-3 L/m, but sometimes, he does increase at higher. He was admitted to the hospital through the emergency room on January 13 with increasing shortness of breath, and diffuse body edema/anasarca. He apparently not been doing well for about 3 or 4 weeks prior to admission. Currently, the patient is on a nonrebreather mask, and 15 L high flow nasal O2. The patient also is using BiPAP from time to time, at 90% FiO2. I did recommend to the nurse, to call respiratory therapy, and trial him on some AIRVO. White count 8.3, hemoglobin 14.3, hematocrit 50.5, and platelet count 192,000. Sodium 138, potassium 4.3, chlorides 95, CO2 39, anion gap 4, BUN 28, creatinine 0.8. N-terminal proBNP is 5290. Objective - Vital Signs Vital signs: Vital Signs Temp 98.2 F 01/15/22 08:00 Pulse 88 01/15/22 09:35 Resp 24 01/15/22 08:00 BP 140/75 01/15/22 08:00 Pulse Ox 90 L 01/15/22 09:45 Intake & Output 01/14/22 01/15/22 01/15/22 18:59 06:59 18:59 Output Total 1300 775 Balance -1300 -775 Output: Urine 1300 775 Other: Voiding Method External Catheter External Catheter - Exam Mild respiratory distress, with mild conversational dyspnea. Currently, the patient's on 15 L high flow oxygen, as well as a nonrebreather mask. Saturations are in the mid to high 80s. HEENT examination is grossly unremarkable. Neck supple. Full range of motion. No adenopathy thyromegaly or neck vein distention. Cardiovascular examination reveals regular rhythm rate. S1-S2 normal. No S3 or S4. No discernible murmur noted. Heart sounds are very distant. Heart rate 88 bpm. Lungs reveal scattered bilateral rhonchi and crackles. Breath sounds equal bilaterally. No wheezes. Abdomen obese. Bowel sounds are noted. No tenderness. Scrotum is edematous. Extremities reveal significant bilateral lower extremity edema, which actually is above the knees. Skin is without rash or lesion. Neurologic examination is brief but nonfocal. - Labs CBC & Chem 7: 01/15/22 09:01 01/15/22 09:01 Labs: Abnormal Lab Results - Last 24 Hours (Table) 01/15/22 01/15/22 Range/Units 09: 09:01 MCHC 28.3 L (31.0-37.0) g/dL RDW 17.6 H (11.5-15.5) % Lymphocytes # 0.8 L (1.0-4.8) k/uL Chloride 95 L (98-107) mmol/L Carbon Dioxide 39 H (22-30) mmol/L BUN 28 H (9-20) mg/dL Glucose 119 H (74-99) mg/dL Assessment and Plan Assessment: Shortness of breath, likely multifactorial, in part related to congestive heart failure, diffuse anasarca, and severe COPD. Stage III COPD, with an FEV1 that is 50% of predicted. History of congestive heart failure. History of hyperlipidemia. History of hypertension. History of chronic hypoxemic respiratory failure. Obesity. Ongoing tobacco use with nicotine addiction. Plan: Plan dated 01/14/2022. The patient is currently on albuterol, and ipratropium bromide updrafts, 4 times a day and when necessary. The patient is also on Lasix at 40 mg IV push, every 12 hours, as well as Symbicort 160/4.5, 2 puffs twice a day. We will continue to follow the patient recommendations. The patient should be on no added salt diet. The patient should be weighed on a daily basis. Prognosis is guarded. Continue to follow make recommendations where appropriate. The patient didn't use BiPAP last night, twitches seemed to help. Saturations are in the mid to high 80s, he does not appear to be overwhelmingly short of breath. Plan dated 01/15/2022. The patient is currently on 15 L high flow nasal cannula, as well as a nonrebreather mask. I asked respiratory therapy to trial him on some AIRVO. His saturations are 90% on AIRVO 60 L/m and an FiO2 of 90%. The patient should go back to BiPAP when he feels able to. We will continue to follow make recom mendations where appropriate. Labs, x-rays, and medications are reviewed. The patient overall prognosis remains guarded. He has significant lower extremity edema, scrotal edema, and increasing abdominal girth from fluid retention. If he shows any additional signs of deterioration, the patient will be transferred to the intensive care unit. Time with Patient: Less than 30
[2022-01-15] MEDS: HYDROcodone/APAP 5-325MG 1 EACH TAB PO PRN ×3 (12:39→22:32)
--- NOTE | 2022-01-15 12:57 | P.PN ---
Subjective Progress Note Date: 01/15/22 HISTORY OF PRESENT ILLNESS: This is a 56 year old male with a past medical history significant for COPD with home oxygen use, pulmonary hypertension, hypertension, hyperlipidemia, and obesity. Patient follows in the office with Dr. Payton. We have been asked to see the patient in consultation for CHF. Patient examined at the bedside. Patient presented to the hospital with a chief complaint of shortness of breath and increased lower extremity edema. Patient reports he is usually compliant with his diet however over the past few weeks he has been eating a lot of foods that are high in salt. He states he noticed his lower summary starting to swell. He states he tried to manage this at home by elevating his extremities at night and taking his medications however he did not see much improvement so he decided to come to emergency room for further evaluation. The patient was started on IV Lasix. He states his breathing has improved this morning. He denies any chest pain or pressure. * EKG reveals sinus tachycardia with heart rate of 118 * Chest xray cardiomegaly. No active cardiopulmonary disease. Heart appears significantly increased peripheral exam. * Laboratory data: WBC 8.5. Hemoglobin 14.9. Platelet count 180. Sodium 136. Potassium 5.2. BUN 29. Creatinine 0.75. Lactic acid 1.3. Troponin negative 1. ProBNP 5290. * Current home cardiac medications include aspirin 81 mg at night, hydrochlorothiazide 50 mg daily, carvedilol 25 mg twice a day * Most recent echocardiogram obtained in 2020 at the office revealed ejection fraction 55%, mild MR, moderate tricuspid regurgitation, and severe pulmonary artery hypertension with RVSP of 89 mmHg * Cardiac catheterization history: 2018 revealing normal coronary arteries 01/15/2022 Patient examined this morning. He is sitting up in a chair. He denies chest pain or pressure. He reports improvement in his shortness of breath. He means on IV Lasix he milligrams every 12 hours. Creatinine remained stable today at 0.80. ProBNP 5290. PHYSICAL EXAM: VITAL SIGNS: Reviewed. GENERAL: Well-developed in no acute distress. HEENT: Head is normocephalic. Pupils are equal, round. Sclerae anicteric. Mucous membranes of the mouth are moist. Neck supple. No JVD or thyromegaly LUNGS: Respirations even and unlabored. Lungs diminished with bibasilar crackles HEART: Regular rate and rhythm. S1 and S2 heard. Soft systolic murmur. ABDOMEN: Soft. Nondistended. Nontender. EXTREMITIES: Normal range of motion. No clubbing or cyanosis. Peripheral pulses intact. 2-3+ lower extremity edema NEUROLOGIC: Awake and alert. Oriented x 3. ASSESSMENT: Shortness of breath Acute on chronic heart failure with preserved ejection fraction Pulmonary hypertension Acute on chronic hypoxic respiratory failure Hypertension Hyperlipidemia Morbid obesity Noncompliance with diet at home PLAN: 2D echo ordered. Await results. Continue home cardiac medications Continue IV lasix Monitor kidney function Daily weights Accurate I&O Further recommendations pending patient course Nurse practitioner note has been reviewed by physician. Signing provider agrees with the documented findings, assessment, and plan of care. Objective - Vital Signs Vital signs: Vital Signs Temp 99.2 F 01/15/22 12:00 Pulse 86 01/15/22 12:43 Resp 24 01/15/22 12:00 BP 139/86 01/15/22 12:00 Pulse Ox 89 L 01/15/22 12:00 Intake & Output 01/14/22 01/15/22 01/15/22 18:59 06:59 18:59 Intake Total 240 Output Total 1300 775 Balance -1300 -775 240 Intake: Oral 240 Output: Urine 1300 775 Other: Voiding Method External Catheter External Catheter External Catheter - Labs CBC & Chem 7: 01/15/22 09:01 01/15/22 09:01 Labs: Abnormal Lab Results - Last 24 Hours (Table) 01/15/22 01/15/22 Range/Units 09:01 09:01 MCHC 28.3 L (31.0-37.0) g/dL RDW 17.6 H (11.5-15.5) % Lymphocytes # 0.8 L (1.0-4.8) k/uL Chloride 95 L (98-107) mmol/L Carbon Dioxide 39 H (22-30) mmol/L BUN 28 H (9-20) mg/dL Glucose 119 H (74-99) mg/dL
[2022-01-15 21:23] LABS: Glucose,Whole Blood 109 mg/dL (75-99)
[2022-01-15 21:33] LABS: ABG Base Excess 15.2 mmol/L; ABG Oxygen Saturation 77.5 % (94-97); ABG PH 7.37 (7.35-7.45); ABG TCO2 43 mmol/L (19-24); Allen Test Performed? Yes
[2022-01-15 21:36] LABS: ABG HCO3 41 mmol/L (21-25); ABG PCO2 71 mmHg (35-45); ABG PO2 46 mmHg (83-108)
--- NOTE | 2022-01-15 21:56 | XR ---
EXAMINATION TYPE: XR chest 1V portable DATE OF EXAM: 01/15/2022 COMPARISON: 01/13/2022 HISTORY: Short of breath TECHNIQUE: FINDINGS: Heart is enlarged. There is no gross heart failure. Costophrenic angles are clear. There ar e no hilar masses. There are chest leads. IMPRESSION: No active cardiopulmonary disease. Cardiomegaly. Pulmonary vascularity slightly improved compared to last exam
[2022-01-15 22:07] LABS: Glucose,Whole Blood 105 mg/dL (75-99)
[2022-01-15] MEDS ORDERED: NALOXONE 0.4 MG/ML 1 ML VIAL IV PRN (22:21)
[2022-01-16] MEDS: HEPARIN SODIUM,PORCINE/PF 5,000 UNIT/0.5 ML SYRINGE SQ SCH ×3 (00:52→15:51)
--- NOTE | 2022-01-16 02:33 | P.EN ---
A- team: Indication: Hypoxia and shortness of breath Arrived on Scene to find: Patient in mild respiratory distress. Vital signs reviewed: SpO2 80% on BiPAP at 100% FiO2, BP 142/86, pulse 110, Patient seen and examined at bedside. He reports feeling only mildly short of breath. Denied any additional complaints. Denies chest discomfort, diaphoresis, nausea, palpitations, fever, chills. General: [non toxic], [mild respiratory distress], [appears at stated age] Derm: [warm], [dry] Head: [atraumatic], [normocephalic], [symmetric] Eyes: [EOMI], [no lid lag], [anicteric sclera] Mouth: [no lip lesion], [mucus membranes moist] Cardiovascular: [S1S2 reg], [no murmur], [positive posterior tibial pulse bilateral], Lungs: [Some scattered rales and rhonchi], [no rhonchi, no rales] , [no accessory muscle use] Abdominal: [Somewhat distended with edema noted], [ nontender to palpation], [no guarding], [no appreciable organomegaly] Ext: [no gross muscle atrophy], [2+ bilateral lower extremity pitting edema to abdomen, no contractures] Neuro: [ CN II-XI grossly intact], [no focal neuro deficits] Psych: [Alert], [oriented], [appropriate affect] Assessment: Acute on chronic Hypoxic and hypercapnic respiratory failure likely multifactorial secondary to CHF and COPD exacerbations Plan: ABG obtained and reviewed Director Career recommended transfer to medical ICU C/w BIPAP C/w IV lasix
[2022-01-16] MEDS: ASPIRIN 81 MG PO SCH ×2 (02:54→20:11)
[2022-01-16] MEDS: HYDROcodone/APAP 5-325MG 1 EACH TAB PO PRN ×4 (02:54→21:39)
[2022-01-16] MEDS: ATORVASTATIN 40 MG TAB PO SCH ×2 (02:54→20:11)
[2022-01-16] MEDS ORDERED: BUMETANIDE 0.25 MG/ML 10 ML VIAL IV SCH (08:00)
[2022-01-16 08:02] LABS: Anisocytosis Slight; Basophils # (A) 0.1 k/uL (0-0.2); Basophils % (A) 1 %; Eosinophils # (A) 0.4 k/uL (0-0.7); Eosinophils % (A) 4 %; HCT 50.3 % (39.0-53.0); HGB 14.1 gm/dL (13.0-17.5); Hypochromasia Marked; Lymphocytes # (A) 0.6 k/uL (1.0-4.8); Lymphocytes % (A) 6 %; MCH 25.5 pg (25.0-35.0); Mean Platelet Volume 8.2; Monocytes # (A) 1.1 k/uL (0-1.0); Monocytes % (A) 11 %; Neutrophils % (A) 76 %; Platelet Count 189 k/uL (150-450); Poikilocytosis Slight; RBC 5.52 m/uL (4.30-5.90); RDW 17.8 % (11.5-15.5); WBC 10.6 k/uL (3.8-10.6)
[2022-01-16 08:28] LABS: African American GFR (CKD) >90 (>60 ml/min/1.73 sqM); Anion Gap 4 mmol/L; Blood Urea Nitrogen 31 mg/dL (9-20); Calcium 8.9 mg/dL (8.4-10.2); Carbon Dioxide 39 mmol/L (22-30); Chloride 92 mmol/L (98-107); Glucose 90 mg/dL (74-99); Magnesium 1.8 mg/dL (1.6-2.3); Non-African American GFR(CKD) >90 (>60 ml/min/1.73 sqM); Potassium 4.4 mmol/L (3.5-5.1); Sodium 135 mmol/L (137-145)
[2022-01-16] MEDS: IPRATROPIUM-ALBUTEROL 3 ML NEB INHALATION SCH ×4 (08:30→20:37)
[2022-01-16] MEDS: SYMBICORT 160-4.5 MCG INHALER INHALATION SCH (08:30)
--- NOTE | 2022-01-16 08:44 | XR ---
EXAMINATION TYPE: XR chest 1V DATE OF EXAM: 01/16/2022 COMPARISON: X-ray dated 01/15/2022 HISTORY: SOB TECHNIQUE: Single frontal view of the chest is obtained. FINDINGS: Increased cardiac transverse diameter obscuring the left mid to lower lung zones. Congested pulmonary vasculature. No satnam area of pulmonary consolidation in the visualized portion of the lungs. No sizable pleural effusion. The left CP recess is obscured. No definite pneumothorax. Degenerative c hanges of the thoracic spine. IMPRESSION: Persistent cardiomegaly and pulmonary vascular congestion.
--- NOTE | 2022-01-16 09:31 | ECHOF ---
Referral Reason:LV function, CHF MEASUREMENTS -------- HEIGHT: 172.7 cm WEIGHT: 120.7 kg BP: RVIDd: 4.7 cm (< 3.3) IVSd: 1.2 cm (0.6 - 1.1) LVIDd: 4.3 cm (3.9 - 5.3) LVPWd: 1.6 cm (0.6 - 1.1) IVSs: 1.9 cm LVIDs: 3.5 cm LVPWs: 2.0 cm LA Diam: 4.1 cm (2.7 - 3.8) Ao Diam: 2.9 cm (2.0 - 3.7) AV Cusp: 1.9 cm (1.5 - 2.6) LA Diam: 4.9 cm (2.7 - 3.8) MV EXCURSION: 17.961 mm (> 18.000) MV EF SLOPE: 72 mm/s (70 - 150) EPSS: 0.4 cm RAP: 10.00 mmHg RVSP: 76.61 mmHg FINDINGS -------- Sinus rhythm. This was a technically adequate study. The left ventricular size is normal. There is borderline concentric left ventricular hypertrophy. Overall left ventricular systolic function is low-normal with, an EF between 50 - 55 %. The right ventricle is severely enlarged. The right ventricular septal wall is flattened in diastol e and systole which is consistent with right ventricular volume and pressure overload. The left atrial size is normal. The right atrial size is normal. There is mild aortic valve sclerosis. There is no evidence of aortic regurgitation. Mild mitral annular calcification present. Mild mitral regurgitation is present. [id number] tricuspid regurgitation present. There is severe pulmonary hypertension. The rig ht ventricular systolic pressure, as measured by Doppler, is 76.61mmHg. There is no pulmonic regurgitation present. There is no pericardial effusion. CONCLUSIONS -------- 1. The left ventricular size is normal. 2. There is borderline concentric left ventricular hypertrophy. 3. Overall left ventricular systolic function is low-normal with, an EF between 50 - 55 %. 4. The right ventricle is severely enlarged. 5. The right ventricular septal wall is flattened in diastole and systole which is consistent with r ight ventricular volume and pressure overload. 6. The left atrial size is normal. 7. The right atrial size is normal. 8. There is mild aortic valve sclerosis. 9. Mild mitral annular calcification present. 10. Mild mitral regurgitation is present. 11. [id number] tricuspid regurgitation present. 12. There is severe pulmonary hypertension. 13. The right ventricular systolic pressure, as measured by Doppler, is 76.61mmHg. 14. There is no pulmonic regurgitation present. 15. There is no pericardial effusion. STEWARD/STEWARDESS BANQUET: Jane Al RDCS
--- NOTE | 2022-01-16 09:49 | P.PN ---
Subjective Progress Note Date: 01/16/22 Pt is saturating high 70s to low 80s on BIPAP 16/8, 100%. Transferred to the ICU overnight. Pt had urinary retention today, placed a godfrey and pulled 700cc out. Gen: awake, alert HEENT: normocephalic, atraumatic, good hearing acuity, moist mucous membranes Resp: good air exchange, breathing comfortably with no accessory muscle use CVS: good distal perfusion x 4, GI: soft, NTTP, ND : no SPT, no CVAT, godfrey catheter is present MSK: Bilateral pitting edema, no clubbing Neuro: non-focal, moving all extremities Psych: cooperative, euthymic mood Assessment/plan: Acute CHF exacerbation with acute on chronic hypoxic and hypercapnic respiratory failure -Cardiology consult -Lasix IV 40 mg every 12 hourly switched to bumex 3mg q12h -Monitor electrolytes -Intake and output -Daily weights -Cardiac monitoring -On BIPAP -Echo pending -Nurse education for CHF dietary modifications -AB.37, pO2 46, pCO2 71 -will hold home coreg due to acute decompensated HF HTN COPD without exacerbation -Home meds were reviewed and reconciled -started on symbicort and duonebs ATC + PRN DVT prophylaxis withHeparin subcu CODE STATUS: Full Code Anticipated discharge place: Home Objective - Vital Signs Vital signs: Vital Signs Temp 98.6 F 01/16/22 08:00 Pulse 105 H 01/16/22 09:00 Resp 12 01/16/22 09:00 BP 139/82 01/16/22 09:00 Pulse Ox 76 L 01/16/22 09:00 Intake & Output 01/15/22 01/16/22 01/16/22 18:59 06:59 18:59 Intake Total 700 480 Output Total 600 900 700 Balance 100 -420 -700 Weight 138 kg Intake: Oral 700 480 Output: Urine 600 900 700 Other: Voiding Method Urinal External Catheter Indwelling Catheter # Voids 1 1 - Labs CBC & Chem 7: 01/16/22 07:13 01/16/22 07:13 Labs: Abnormal Lab Results - Last 24 Hours (Table) 01/15/22 01/15/22 01/15/22 Range/Units 09:01 09:01 21:19 MCHC 28.3 L (31.0-37.0) g/dL RDW 17.6 H (11.5-15.5) % Neutrophils # (1.3-7.7) k/uL Lymphocytes # 0.8 L (1.0-4.8) k/uL Monocytes # (0-1.0) k/uL ABG pCO2 (35-45) mmHg ABG pO2 (83-108) mmHg ABG HCO3 (21-25) mmol/L ABG Total CO2 (19-24) mmol/L ABG O2 Saturation (94-97) % Sodium (137-145) mmol/L Chloride 95 L (98-107) mmol/L Carbon Dioxide 39 H (22-30) mmol/L BUN 28 H (9-20) mg/dL Glucose 119 H (74-99) mg/dL POC Glucose (mg/dL) 109 H (75-99) mg/dL 01/15/22 01/15/22 01/16/22 Range/Units 21:22 22:06 07:13 MCHC (31.0-37.0) g/dL RDW (11.5-15.5) % Neutrophils # (1.3-7.7) k/uL Lymphocytes # (1.0-4.8) k/uL Monocytes # (0-1.0) k/uL ABG pCO2 71 H* (35-45) mmHg ABG pO2 46 L* (83-108) mmHg ABG HCO3 41 H* (21-25) mmol/L ABG Total CO2 43 H (19-24) mmol/L ABG O2 Saturation 77.5 L (94-97) % Sodium 135 L (137-145) mmol/L Chloride 92 L (98-107) mmol/L Carbon Dioxide 39 H (22-30) mmol/L BUN 31 H (9-20) mg/dL Glucose (74-99) mg/dL POC Glucose (mg/dL) 105 H (75-99) mg/dL 01/16/22 Range/Units 07:13 MCHC 28.0 L (31.0-37.0) g/dL RDW 17.8 H (11.5-15.5) % Neutrophils # 8.0 H (1.3-7.7) k/uL Lymphocytes # 0.6 L (1.0-4.8) k/uL Monocytes # 1.1 H (0-1.0) k/uL ABG pCO2 (35-45) mmHg ABG pO2 (83-108) mmHg ABG HCO3 (21-25) mmol/L ABG Total CO2 (19-24) mmol/L ABG O2 Saturation (94-97) % Sodium (137-145) mmol/L Chloride (98-107) mmol/L Carbon Dioxide (22-30) mmol/L BUN (9-20) mg/dL Glucose (74-99) mg/dL POC Glucose (mg/dL) (75-99) mg/dL
--- NOTE | 2022-01-16 10:41 | P.PN ---
Subjective Progress Note Date: 01/16/22 Principal diagnosis: Shortness of breath. Pulmonary consult dated 01/14/2022. 56-year-old male who I see in the clinic periodically, for stage III COPD. The patient has an FEV1 that's 50% of predicted. The patient does use home O2, at between 2-3 L/m, but sometimes he increases it to 6 L, when he is more short of breath. The patient comes into the emergency room on January 13 complaining of increasing shortness of breath, and diffuse body edema. He's been getting worse for the last 3 or 4 weeks. He has been wearing his oxygen constantly. He is getting quite a bit of weight. He has significant swelling and increasing abdominal girth, swelling of his scrotum, and significant lower extremity edema as well. He denies any chest pain or chest discomfort. There is no fever or chills. He denies any cough or phlegm production. He apparently mentioned to the ER physician that he ate an entire package of bologna a day or 2 before admission. Past medical history is positive for CHF, severe COPD, hyperlipidemia, hypertension, pneumonia, and obesity. He also has a history of chronic hypoxemic respiratory failure. White count 8.1, hemoglobin 13.6, hematocrit 47.4, and platelet count 205,000. Blood gases show a PaO2 of 59, pCO2 of 61, and a normal pH. That was on 70% FiO2. Sodium 136, potassium 4.7, chlorides 96, CO2 34, anion gap 6, BUN 30, creatinine 0.79. Total bilirubin was 1.4. Albumin is 3.7. Chest x-ray shows cardiomegaly, and diffuse interstitial changes, likely consistent with interstitial edema. N-terminal proBNP was 5290. Progress note dated 01/15/2022. This is a 56-year-old male, again seen in room 369. He has a history of severe stage III COPD, with an FEV1 percent, that is 50% of predicted. He does have chronic hypoxemic respiratory failure, and does use home oxygen at between 2-3 L/m, but sometimes, he does increase at higher. He was admitted to the hospital through the emergency room on January 13 with increasing shortness of breath, and diffuse body edema/anasarca. He apparently not been doing well for about 3 or 4 weeks prior to admission. Currently, the patient is on a nonrebreather mask, and 15 L high flow nasal O2. The patient also is using BiPAP from time to time, at 90% FiO2. I did recommend to the nurse, to call respiratory therapy, and trial him on some AIRVO. White count 8.3, hemoglobin 14.3, hematocrit 50.5, and platelet count 192,000. Sodium 138, potassium 4.3, chlorides 95, CO2 39, anion gap 4, BUN 28, creatinine 0.8. N-terminal proBNP is 5290. Progress note dated 01/16/2022. 56-year-old male, who is seen today in the intensive care unit, room 253. Last night, I was called by the floor nurse, that the patient was in some mild respiratory distress. Actually, I believe the patient was pretty much at baseline. Saturations were in the mid 80s. I asked for one of my ICU nurses to go. Evaluate the patient. She then called me, and we decided to move the patient to the intensive care unit. The patient was placed on BiPAP, settings of 16/8, and 100%. The patient was actually transferred to the intensive care unit, before midnight, on January 15. Currently, the patient is not receiving any IV fluids. Blood gases last night, show pO2 of 46, PCO2 of 71, and pH is 7.37. Lab data today includes a white count of 10.6, hemoglobin 14.1, hematocrit 50.3, and platelet count 189,000. Sodium 135, potassium 4.4, chlorides 92, CO2 39, anion gap 4, BUN 31, creatinine 0.79. The chest x-ray shows cardiomegaly, and pulmonary vascular congestion. Objective - Vital Signs Vital signs: Vital Signs Temp 98.6 F 01/16/22 08:00 Pulse 113 H 01/16/22 10:00 Resp 23 01/16/22 10:00 BP 125/73 01/16/22 10:00 Pulse Ox 71 L 01/16/22 10:00 Intake & Output 01/15/22 01/16/22 01/16/22 18:59 06:59 18:59 Intake Total 700 480 Output Total 600 900 775 Balance 100 -420 -775 Weight 138 kg Intake: Oral 700 480 Output: Urine 600 900 775 Other: Voiding Method Urinal External Catheter Indwelling Catheter # Voids 1 1 - Exam Mild respiratory distress, with mild conversational dyspnea. Currently, the patient's on BiPAP, at 100%. HEENT examination is grossly unremarkable. Neck supple. Full range of motion. No adenopathy thyromegaly or neck vein distention. Cardiovascular examination reveals regular rhythm rate. S1-S2 normal. No S3 or S4. No discernible murmur noted. Heart sounds are very distant. Heart rate 110 bpm. Lungs reveal scattered bilateral rhonchi and crackles. Breath sounds equal jignesh aterally. No wheezes. Saturations are in the low 80s. Abdomen obese. Bowel sounds are noted. No tenderness. Scrotum is edematous. Extremities reveal significant bilateral lower extremity edema, which actually is above the knees. Skin is without rash or lesion. Neurologic examination is brief but nonfocal. - Labs CBC & Chem 7: 01/16/22 07:13 01/16/22 07:13 Labs: Abnormal Lab Results - Last 24 Hours (Table) 01/15/22 01/15/22 01/15/22 Range/Units 21:19 21:22 22:06 MCHC (31.0-37.0) g/dL RDW (11.5-15.5) % Neutrophils # (1.3-7.7) k/uL Lymphocytes # (1.0-4.8) k/uL Monocytes # (0-1.0) k/uL ABG pCO2 71 H* (35-45) mmHg ABG pO2 46 L* (83-108) mmHg ABG HCO3 41 H* (21-25) mmol/L ABG Total CO2 43 H (19-24) mmol/L ABG O2 Saturation 77.5 L (94-97) % Sodium (137-145) mmol/L Chloride (98-107) mmol/L Carbon Dioxide (22-30) mmol/L BUN (9-20) mg/dL POC Glucose (mg/dL) 109 H 105 H (75-99) mg/dL 01/16/22 01/16/22 Range/Units 07:13 07:13 MCHC 28.0 L (31.0-37.0) g/dL RDW 17.8 H (11.5-15.5) % Neutrophils # 8.0 H (1.3-7.7) k/uL Lymphocytes # 0.6 L (1.0-4.8) k/uL Monocytes # 1.1 H (0-1.0) k/uL ABG pCO2 (35-45) mmHg ABG pO2 (83-108) mmHg ABG HCO3 (21-25) mmol/L ABG Total CO2 (19-24) mmol/L ABG O2 Saturation (94-97) % Sodium 135 L (137-145) mmol/L Chloride 92 L (98-107) mmol/L Carbon Dioxide 39 H (22-30) mmol/L BUN 31 H (9-20) mg/dL POC Glucose (mg/dL) (75-99) mg/dL Assessment and Plan Assessment: Shortness of breath, likely multifactorial, in part related to congestive heart failure, diffuse anasarca, and severe COPD. Stage III COPD, with an FEV1 that is 50% of predicted. History of congestive heart failure. History of hyperlipidemia. History of hypertension. History of chronic hypoxemic respiratory failure. Obesity. Ongoing tobacco use with nicotine addiction. Plan: Plan dated 01/14/2022. The patient is currently on albuterol, and ipratropium bromide updrafts, 4 times a day and when necessary. The patient is also on Lasix at 40 mg IV push, every 12 hours, as well as Symbicort 160/4.5, 2 puffs twice a day. We will continue to follow the patient recommendations. The patient should be on no added salt diet. The patient should be weighed on a daily basis. Prognosis is guarded. Continue to follow make recommendations where appropriate. The patient didn't use BiPAP last night, twitches seemed to help. Saturations are in the mid to high 80s, he does not appear to be overwhelmingly short of breath. Plan dated 01/15/2022. The patient is currently on 15 L high flow nasal cannula, as well as a nonre breather mask. I asked respiratory therapy to trial him on some AIRVO. His saturations are 90% on AIRVO 60 L/m and an FiO2 of 90%. The patient should go back to BiPAP when he feels able to. We will continue to follow make recommendations where appropriate. Labs, x-rays, and medications are reviewed. The patient overall prognosis remains guarded. He has significant lower extremity edema, scrotal edema, and increasing abdominal girth from fluid retention. If he shows any additional signs of deterioration, the patient will be transferred to the intensive care unit. Plan dated 01/16/2022. The patient was moved to the intensive care unit last night, before midnight. The patient was placed on BiPAP, with settings of IPAP 16, EPAP 8, and 100%. The patient is not receiving any IV fluids. Blood gases were reviewed. I did speak to the ICU nurse last night. Clinically, the patient appears to be relatively stable. He does not appear to be any worse to me today than he was yesterday. We move him to the ICU primarily because of concerns by the nursing staff on the general medical floor. We added Solu-Medrol 40 mg every 6 hours, and discontinue his Symbicort in favor of budesonide, and formoterol. We will continue to follow and make recommendations where appropriate. Labs, x-rays, and medications are all reviewed. Prognosis is certainly guarded. Time with Patient: Greater than 30
[2022-01-16] MEDS: BUMETANIDE 10 MG in DEXTROSE 5% IN WATER 60 ML IV SCH ×4 (11:22→23:46)
[2022-01-16] MEDS: methylPREDNISolone SOD SUCCI 40 MG/ML 1 ML VIAL IV SCH ×3 (11:25→23:45)
--- NOTE | 2022-01-16 16:37 | P.PN ---
Subjective HISTORY OF PRESENT ILLNESS: This is a 56 year old male with a past medical history significant for COPD with home oxygen use, pulmonary hypertension, hypertension, hyperlipidemia, and obesity. Patient follows in the office with Dr. Payton. We have been asked to see the patient in consultation for CHF. Patient examined at the bedside. Patient presented to the hospital with a chief complaint of shortness of breath and increased lower extremity edema. Patient reports he is usually compliant with his diet however over the past few weeks he has been eating a lot of foods that are high in salt. He states he noticed his lower summary starting to swell. He states he tried to manage this at home by elevating his extremities at night and taking his medications however he did not see much improvement so he decided to come to emergency room for further evaluation. The patient was started on IV Lasix. He states his breathing has improved this morning. He denies any chest pain or pressure. * EKG reveals sinus tachycardia with heart rate of 118 * Chest xray cardiomegaly. No active cardiopulmonary disease. Heart appears significantly increased peripheral exam. * Laboratory data: WBC 8.5. Hemoglobin 14.9. Platelet count 180. Sodium 136. Potassium 5.2. BUN 29. Creatinine 0.75. Lactic acid 1.3. Troponin negative 1. ProBNP 5290. * Current home cardiac medications include aspirin 81 mg at night, hydrochlorothiazide 50 mg daily, carvedilol 25 mg twice a day * Most recent echocardiogram obtained in 2020 at the office revealed ejection fraction 55%, mild MR, moderate tricuspid regurgitation, and severe pulmonary artery hypertension with RVSP of 89 mmHg * Cardiac catheterization history: 2019 revealing normal coronary arteries 01/15/2022 Patient examined this morning. He is sitting up in a chair. He denies chest pain or pressure. He reports improvement in his shortness of breath. He means on IV Lasix he milligrams every 12 hours. Creatinine remained stable today at 0.80. ProBNP 5290. 01/16 Patient seen and examined. Patient transferred to ICU with mild worsened and respiratory distress however appears much more comfortable on BiPAP. Oxygen saturations are significantly decreased into the 70s despite BiPAP with 100% FiO2. Denies any chest pain or pressure. Admits he would like to take the mask off to eat. Has been receiving Bumex drip at 0.5 mg per hour with approximately 200 mL output per hour. PHYSICAL EXAM: VITAL SIGNS: Reviewed. GENERAL: Well-developed in no acute distress. HEENT: Head is normocephalic. Pupils are equal, round. Sclerae anicteric. Mucous membranes of the mouth are moist. Neck supple. No JVD or thyromegaly LUNGS: Respirations even and unlabored. Lungs diminished with bibasilar crackles HEART: Regular rate and rhythm. S1 and S2 heard. Soft systolic murmur. ABDOMEN: Soft. Nondistended. Nontender. EXTREMITIES: Normal range of motion. No clubbing or cyanosis. Peripheral pul ses intact. 2-3+ lower extremity edema NEUROLOGIC: Awake and alert. Oriented x 3. ASSESSMENT: Shortness of breath Acute on chronic heart failure with preserved ejection fraction, mainly right sided Pulmonary hypertension Acute on chronic hypoxic respiratory failure Hypertension Hyperlipidemia Morbid obesity Noncompliance with diet at home PLAN: Echocardiogram reviewed with mention of the EF 50-55% RV severely enlarged and flattened consistent with RV volume and pressure overload, mild mitral regurgitation, severe pulmonary hypertension with RVSP of 76. There is no mention of significant aortic stenosis or aortic regurgitation however there does appear to be is turbulent flow closest septum as well which may be artifact from the RV enlargement and some tricuspid regurgitation however we will repeat echo to evaluate for any shunt, VSD and also to evaluate with bubble study to rule out any shunt. Concern of shunt with severe hypoxia despite supplemental oxygen. For completeness sake we will also check a d-dimer however patient currently will not be able to tolerate a CTA. If d-dimer abnormal we will start a heparin drip. In the meantime patient is still severely volume overloaded secondary to right-sided heart failure. He does have severe right ventricular dilation noted on echo related to progressive pulmonary hypertension. Continue with supportive care. Prognosis guarded. We will also start Revatio. Pending workup patient may benefit from a right heart catheterization to further assess degree of pulmonary hypertension as well as cardiac output however at this point patient needs more diuresis. May also consider inotropes. Objective - Vital Signs Vital signs: Vital Signs Temp 98.5 F 01/16/22 16:00 Pulse 111 H 01/16/22 16:10 Resp 11 L 01/16/22 16:00 BP 119/95 01/16/22 16:00 Pulse Ox 73 L 01/16/22 16:00 Intake & Output 01/15/22 01/16/22 01/16/22 18:59 06:59 18:59 Intake Total 700 480 Output Total 949 408 0262 Balance 100 -420 -2240 Weight 138 kg Intake: Oral 700 480 Output: Urine 464 143 9519 Other: Voiding Method Urinal External Catheter Indwelling Catheter # Voids 1 1 - Labs CBC & Chem 7: 01/16/22 07:13 01/16/22 07:13 Labs: Abnormal Lab Results - Last 24 Hours (Table) 01/15/22 01/15/22 01/15/22 Range/Units 21:19 21:22 22:06 MCHC (31.0-37.0) g/dL RDW (11.5-15.5) % Neutrophils # (1.3-7.7) k/uL Lymphocytes # (1.0-4.8) k/uL Monocytes # (0-1.0) k/uL ABG pCO2 71 H* (35-45) mmHg ABG pO2 46 L* (83-108) mmHg ABG HCO3 41 H* (21-25) mmol/L ABG Total CO2 43 H (19-24) mmol/L ABG O2 Saturation 77.5 L (94-97) % Sodium (137-145) mmol/L Chloride (98-107) mmol/L Carbon Dioxide (22-30) mmol/L BUN (9-20) mg/dL POC Glucose (mg/dL) 109 H 105 H (75-99) mg/dL 01/16/22 01/16/22 Range/Units 07:13 07:13 MCHC 28.0 L (31.0-37.0) g/dL RDW 17.8 H (11.5-15.5) % Neutrophils # 8.0 H (1.3-7.7) k/uL Lymphocytes # 0.6 L (1.0-4.8) k/uL Monocytes # 1.1 H (0-1.0) k/uL ABG pCO2 (35-45) mmHg ABG pO2 (83-108) mmHg ABG HCO3 (21-25) mmol/L ABG Total CO2 (19-24) mmol/L ABG O2 Saturation (94-97) % Sodium 135 L (137-145) mmol/L Chloride 92 L (98-107) mmol/L Carbon Dioxide 39 H (22-30) mmol/L BUN 31 H (9-20) mg/dL POC Glucose (mg/dL) (75-99) mg/dL
[2022-01-16] MEDS: metOLazone 5 MG TAB PO SCH (17:46)
[2022-01-16] MEDS: SILDENAFIL 20 MG TAB PO SCH ×2 (17:46→21:23)
[2022-01-16] MEDS: ENOXAPARIN 150 MG/ML SYRINGE SQ SCH (20:11)
[2022-01-16] MEDS: FORMOTEROL FUMARATE 20 MCG/2 ML NEBU INHALATION SCH (20:37)
[2022-01-16] MEDS: BUDESONIDE 1 MG/2 ML NEBU INHALATION SCH (20:37)
[2022-01-16 23:04] LABS: Glucose,Whole Blood 206 mg/dL (75-99)
[2022-01-16] MEDS: IPRATROPIUM-ALBUTEROL 3 ML NEB INHALATION PRN (23:40)
[2022-01-17 03:47] LABS: ABG Base Excess 18.3 mmol/L; ABG Oxygen Saturation 64.1 % (94-97); ABG PCO2 69 mmHg (35-45); ABG PH 7.41 (7.35-7.45); ABG TCO2 45 mmol/L (19-24); Allen Test Performed? Yes
[2022-01-17 03:50] LABS: ABG HCO3 43 mmol/L (21-25); ABG PO2 37 mmHg (83-108)
[2022-01-17] MEDS: IPRATROPIUM-ALBUTEROL 3 ML NEB INHALATION PRN (04:36)
[2022-01-17] MEDS: methylPREDNISolone SOD SUCCI 40 MG/ML 1 ML VIAL IV SCH (06:27)
[2022-01-17 06:41] LABS: Anisocytosis Slight; Basophils % (A) 0 %; Eosinophils % (A) 0 %; HCT 50.6 % (39.0-53.0); HGB 14.2 gm/dL (13.0-17.5); Hypochromasia Marked; Lymphocytes # (A) 0.3 k/uL (1.0-4.8); Lymphocytes % (A) 4 %; MCH 25.4 pg (25.0-35.0); MCHC 28.1 g/dL (31.0-37.0); MCV 90.1 fL (80.0-100.0); Mean Platelet Volume 8.7; Monocytes # (A) 0.5 k/uL (0-1.0); Monocytes % (A) 6 %; Neutrophils # (A) 7.5 k/uL (1.3-7.7); Neutrophils % (A) 89 %; Platelet Count 180 k/uL (150-450); Poikilocytosis Slight; RBC 5.61 m/uL (4.30-5.90); RDW 17.7 % (11.5-15.5); WBC 8.4 k/uL (3.8-10.6)
--- NOTE | 2022-01-17 07:25 | P.PN ---
Subjective HISTORY OF PRESENT ILLNESS: This is a 56 year old male with a past medical history significant for COPD with home oxygen use, pulmonary hypertension, hypertension, hyperlipidemia, and obesity. Patient follows in the office with Dr. Payton. We have been asked to see the patient in consultation for CHF. Patient examined at the bedside. Patient presented to the hospital with a chief complaint of shortness of breath and increased lower extremity edema. Patient reports he is usually compliant with his diet however over the past few weeks he has been eating a lot of foods that are high in salt. He states he noticed his lower summary starting to swell. He states he tried to manage this at home by elevating his extremities at night and taking his medications however he did not see much improvement so he decided to come to emergency room for further evaluation. The patient was started on IV Lasix. He states his breathing has improved this morning. He denies any chest pain or pressure. * EKG reveals sinus tachycardia with heart rate of 118 * Chest xray cardiomegaly. No active cardiopulmonary disease. Heart appears significantly increased peripheral exam. * Laboratory data: WBC 8.5. Hemoglobin 14.9. Platelet count 180. Sodium 136. Potassium 5.2. BUN 29. Creatinine 0.75. Lactic acid 1.3. Troponin negative 1. ProBNP 5290. * Current home cardiac medications include aspirin 81 mg at night, hydrochlorothiazide 50 mg daily, carvedilol 25 mg twice a day * Most recent echocardiogram obtained in 2020 at the office revealed ejection fraction 55%, mild MR, moderate tricuspid regurgitation, and severe pulmonary artery hypertension with RVSP of 89 mmHg * Cardiac catheterization history: 2019 revealing normal coronary arteries 01/15/2022 Patient examined this morning. He is sitting up in a chair. He denies chest pain or pressure. He reports improvement in his shortness of breath. He means on IV Lasix he milligrams every 12 hours. Creatinine remained stable today at 0.80. ProBNP 5290. 01/16 Patient seen and examined. Patient transferred to ICU with mild worsened and respiratory distress however appears much more comfortable on BiPAP. Oxygen saturations are significantly decreased into the 70s despite BiPAP with 100% FiO2. Denies any chest pain or pressure. Admits he would like to take the mask off to eat. Has been receiving Bumex drip at 0.5 mg per hour with approximately 200 mL output per hour. 01/16 Patient seen and examined. Patient remains on Bumex drip and Zaroxolyn was added yesterday with good urine output. He was also started on Revatio. Id. her was noted to be elevated and therefore placed on Lovenox. Ideally would perform VQ scan or CTA however unable to tolerate tests currently with severe hypoxia. Oxygen saturations were down into the 50 range despite oxygen however patient did not desire intubation and oxygen saturations have improved to the 70s range. Denies any chest pain or pressure. States he is feeling well today. PHYSICAL EXAM: VITAL SIGNS: Reviewed. GENERAL: Well-developed in no acute distress. HEENT: Head is normocephalic. Pupils are equal, round. Sclerae anicteric. Mucous membranes of the mouth are moist. Neck supple. No JVD or thyromegaly LUNGS: Respirations even and unlabored. Lungs diminished with bibasilar crackles HEART: Regular rate and rhythm. S1 and S2 heard. Soft systolic murmur. ABDOMEN: Soft. Nondistended. Nontender. EXTREMITIES: Normal range of motion. No clubbing or cyanosis. Peripheral pulses intact. 2-3+ lower extremity edema NEUROLOGIC: Awake and alert. Oriented x 3. ASSESSMENT: Acute on chronic heart failure with preserved ejection fraction, mainly right sided Pulmonary hypertension Acute on chronic hypoxic respiratory failure Hypertension Hyperlipidemia Morbid obesity Noncompliance with diet at home RV failure, concerning for stage D heart failure PLAN: Echo reviewed and patient does have severe RV dilation and maintaining the RV failure. Major component of COPD however additional RV failure and concern of end-stage right-sided heart failure. Patient has been diuresing well and we had added Zaroxolyn as well as Bumex and Revatio. Attempt to continue treatment medically however prognosis guarded. Ideally perform right heart catheterization to further define group of pulmonary hypertension. Check repeat 2-D echo to rule out any shunt with bubble study. Continue with Lovenox for now and ideally VQ scan or CTA however patient likely unable to tolerate tests today we will continue with current therapy. May consider inotropes for RV failure however appears to be diuresing well with current therapy. Objective - Vital Signs Vital signs: Vital Signs Temp 98.9 F 01/17/22 04:00 Pulse 100 01/17/22 07:00 Resp 16 01/17/22 07:00 BP 113/86 01/17/22 07:00 Pulse Ox 78 L 01/17/22 07:00 Intake & Output 01/16/22 01/17/22 01/17/22 18:59 06:59 18:59 Intake Total 162 Output Total 2524 Balance -988 -250 Weight 136.4 kg Intake: Intake, IV Titration 62 Amount Bumetanide 10 mg In 62 Dextrose 5% in Water 60 ml @ 0.5 MG/HR 5 mls/hr IV .Q20H [facility] Rx#: [id number] Oral 100 Output: Urine 2524 2024 250 Other: Voiding Method Indwelling Catheter Indwelling Catheter - Labs CBC & Chem 7: 01/17/22 05:38 01/16/22 07:13 Labs: Abnormal Lab Results - Last 24 Hours (Table) 01/16/22 01/16/22 01/16/22 Range/Units 07:13 07:13 16:59 MCHC 28.0 L (31.0-37.0) g/dL RDW 17.8 H (11.5-15.5) % Neutrophils # 8.0 H (1.3-7.7) k/uL Lymphocytes # 0.6 L (1.0-4.8) k/uL Monocytes # 1.1 H (0-1.0) k/uL D-Dimer 2.53 H (<0.60) mg/L FEU ABG pCO2 (35-45) mmHg ABG pO2 (83-108) mmHg ABG HCO3 (21-25) mmol/L ABG Total CO2 (19-24) mmol/L ABG O2 Saturation (94-97) % Sodium 135 L (137-145) mmol/L Chloride 92 L (98-107) mmol/L Carbon Dioxide 39 H (22-30) mmol/L BUN 31 H (9-20) mg/dL POC Glucose (mg/dL) (75-99) mg/dL 01/16/22 01/17/22 01/17/22 Range/Units 23:03 03:41 05:38 MCHC 28.1 L (31.0-37.0) g/dL RDW 17.7 H (11.5-15.5) % Neutrophils # (1.3-7.7) k/uL Lymphocytes # 0.3 L (1.0-4.8) k/uL Monocytes # (0-1.0) k/uL D-Dimer (<0.60) mg/L FEU ABG pCO2 69 H (35-45) mmHg ABG pO2 37 L* (83-108) mmHg ABG HCO3 43 H* (21-25) mmol/L ABG Total CO2 45 H (19-24) mmol/L ABG O2 Saturation 64.1 L (94-97) % Sodium (137-145) mmol/L Chloride (98-107) mmol/L Carbon Dioxide (22-30) mmol/L BUN (9-20) mg/dL POC Glucose (mg/dL) 206 H (75-99) mg/dL
[2022-01-17 07:28] LABS: African American GFR (CKD) >90 (>60 ml/min/1.73 sqM); Anion Gap 9 mmol/L; Blood Urea Nitrogen 38 mg/dL (9-20); Calcium 8.9 mg/dL (8.4-10.2); Carbon Dioxide 38 mmol/L (22-30); Chloride 89 mmol/L (98-107); Glucose 163 mg/dL (74-99); Magnesium 1.7 mg/dL (1.6-2.3); Non-African American GFR(CKD) >90 (>60 ml/min/1.73 sqM); Potassium 4.1 mmol/L (3.5-5.1); Sodium 136 mmol/L (137-145)
[2022-01-17] MEDS: BUDESONIDE 1 MG/2 ML NEBU INHALATION SCH ×2 (07:53→20:18)
[2022-01-17] MEDS: IPRATROPIUM-ALBUTEROL 3 ML NEB INHALATION SCH ×4 (07:53→20:19)
[2022-01-17] MEDS: FORMOTEROL FUMARATE 20 MCG/2 ML NEBU INHALATION SCH ×2 (07:53→20:19)
--- NOTE | 2022-01-17 08:01 | XR ---
EXAMINATION TYPE: XR chest 1V portable DATE OF EXAM: 01/17/2022 COMPARISON: X-ray dated 01/16/2022 HISTORY: Pulmonary pneumonia TECHNIQUE: Single frontal view of the chest is obtained. FINDINGS: Persistent increased cardiac size and pulmonary vascular congestion. Questionable small left retrocar diac opacity. Slightly increased density of the left midlung zone, attention on follow-up. Unchanged remainder of the lungs. No sizable pleural effusion or definite pneumothorax. Unchanged bon y thoracic cage. IMPRESSION: Minimal interval changes as described above.
[2022-01-17] MEDS ORDERED: ACETAMINOPHEN IV (For NPO) 1,000 MG in EMPTY BAG 1 BAG IVPB PRN (08:32)
[2022-01-17] MEDS: SILDENAFIL 20 MG TAB PO SCH ×2 (09:07→16:08)
[2022-01-17] MEDS: ENOXAPARIN 150 MG/ML SYRINGE SQ SCH (09:07)
[2022-01-17] MEDS: metOLazone 5 MG TAB PO SCH (09:07)
--- NOTE | 2022-01-17 10:27 | P.PN ---
Subjective Progress Note Date: 01/17/22 Pt is saturating high 70s on BIPAP 16/8, 100%. Patient had repeat echocardiogram done with bubble study, which confirmed right to left shunting consistent with Eisenmenger syndrome. Already on sildenafil, ongoing IV diuresis. Case discussed with cardiology, patient will continue to have IV diuresis, then they will address adding on pulmonary hypertension medications. At some point, patient will require CT angiogram to rule out pulmonary embolism and VQ scan to rule out CTEPH. Urine output of 4.4 L yesterday. Gen: awake, alert HEENT: normocephalic, atraumatic, good hearing acuity, moist mucous membranes Resp: good air exchange, breathing comfortably with no accessory muscle use CVS: good distal perfusion x 4, GI: soft, NTTP, ND : no SPT, no CVAT, godfrey catheter is present MSK: Bilateral pitting edema, no clubbing Neuro: non-focal, moving all extremities Psych: cooperative, euthymic mood Assessment/plan: Acute diastolic CHF exacerbation with acute on chronic hypoxic and hypercapnic respiratory failure Acute on chronic right heart failure -Cardiology consult -Lasix IV 40 mg every 12 hourly switched to bumex drip -Monitor electrolytes -Intake and output -Daily weights -Cardiac monitoring -On BIPAP -Echo pending -Nurse education for CHF dietary modifications -AB.37, pO2 46, pCO2 71 -will hold home coreg due to acute decompensated HF -Continue sildenafil, metolazone HTN COPD without exacerbation -Home meds were reviewed and reconciled -started on symbicort and duonebs ATC + PRN DVT prophylaxis with Heparin subcu CODE STATUS: Full Code Anticipated discharge place: Home Objective - Vital Signs Vital signs: Vital Signs Temp 99.7 F H 01/17/22 08:00 Pulse 104 H 01/17/22 10:00 Resp 22 01/17/22 10:00 BP 135/75 01/17/22 10:00 Pulse Ox 73 L 01/17/22 10:00 Intake & Output 01/16/22 01/17/22 01/17/22 18:59 06:59 18:59 Intake Total 162 46.917 Output Total 9772 6586 827 Balance -3055 -1863 -778.083 Weight 136.4 kg Intake: Intake, IV Titration 62 46.917 Amount Bumetanide 10 mg In 62 46.917 Dextrose 5% in Water 60 ml @ 1 MG/HR 10 mls/hr IV .Q10H [facility] Rx#:[id number] Oral 100 Output: Urine 1728 2024 825 Other: Voiding Method Indwelling Catheter Indwelling Catheter Indwelling Catheter - Labs CBC & Chem 7: 01/17/22 05:38 01/17/22 05:38 Labs: Abnormal Lab Results - Last 24 Hours (Table) 01/16/22 01/16/22 01/17/22 Range/Units 16:59 23:03 03:41 MCHC (31.0-37.0) g/dL RDW (11.5-15.5) % Lymphocytes # (1.0-4.8) k/uL D-Dimer 2.53 H (<0.60) mg/L FEU ABG pCO2 69 H (35-45) mmHg ABG pO2 37 L* (83-108) mmHg ABG HCO3 43 H* (21-25) mmol/L ABG Total CO2 45 H (19-24) mmol/L ABG O2 Saturation 64.1 L (94-97) % Sodium (137-145) mmol/L Chloride (98-107) mmol/L Carbon Dioxide (22-30) mmol/L BUN (9-20) mg/dL Glucose (74-99) mg/dL POC Glucose (mg/dL) 206 H (75-99) mg/dL 01/17/22 01/17/22 Range/Units 05:38 05:38 MCHC 28.1 L (31.0-37.0) g/dL RDW 17.7 H (11.5-15.5) % Lymphocytes # 0.3 L (1.0-4.8) k/uL D-Dimer (<0.60) mg/L FEU ABG pCO2 (35-45) mmHg ABG pO2 (83-108) mmHg ABG HCO3 (21-25) mmol/L ABG Total CO2 (19-24) mmol/L ABG O2 Saturation (94-97) % Sodium 136 L (137-145) mmol/L Chloride 89 L (98-107) mmol/L Carbon Dioxide 38 H (22-30) mmol/L BUN 38 H (9-20) mg/dL Glucose 163 H (74-99) mg/dL POC Glucose (mg/dL) (75-99) mg/dL
--- NOTE | 2022-01-17 10:40 | P.PN ---
Subjective Progress Note Date: 01/17/22 Principal diagnosis: Shortness of breath. Pulmonary consult dated 01/14/2022. 56-year-old male who I see in the clinic periodically, for stage III COPD. The patient has an FEV1 that's 50% of predicted. The patient does use home O2, at between 2-3 L/m, but sometimes he increases it to 6 L, when he is more short of breath. The patient comes into the emergency room on January 13 complaining of increasing shortness of breath, and diffuse body edema. He's been getting worse for the last 3 or 4 weeks. He has been wearing his oxygen constantly. He is getting quite a bit of weight. He has significant swelling and increasing abdominal girth, swelling of his scrotum, and significant lower extremity edema as well. He denies any chest pain or chest discomfort. There is no fever or chills. He denies any cough or phlegm production. He apparently mentioned to the ER physician that he ate an entire package of bologna a day or 2 before admission. Past medical history is positive for CHF, severe COPD, hyperlipidemia, hypertension, pneumonia, and obesity. He also has a history of chronic hypoxemic respiratory failure. White count 8.1, hemoglobin 13.6, hematocrit 47.4, and platelet count 205,000. Blood gases show a PaO2 of 59, pCO2 of 61, and a normal pH. That was on 70% FiO2. Sodium 136, potassium 4.7, chlorides 96, CO2 34, anion gap 6, BUN 30, creatinine 0.79. Total bilirubin was 1.4. Albumin is 3.7. Chest x-ray shows cardiomegaly, and diffuse interstitial changes, likely consistent with interstitial edema. N-terminal proBNP was 5290. Progress note dated 01/15/2022. This is a 56-year-old male, again seen in room 369. He has a history of severe stage III COPD, with an FEV1 percent, that is 50% of predicted. He does have chronic hypoxemic respiratory failure, and does use home oxygen at between 2-3 L/m, but sometimes, he does increase at higher. He was admitted to the hospital through the emergency room on January 13 with increasing shortness of breath, and diffuse body edema/anasarca. He apparently not been doing well for about 3 or 4 weeks prior to admission. Currently, the patient is on a nonrebreather mask, and 15 L high flow nasal O2. The patient also is using BiPAP from time to time, at 90% FiO2. I did recommend to the nurse, to call respiratory therapy, and trial him on some AIRVO. White count 8.3, hemoglobin 14.3, hematocrit 50.5, and platelet count 192,000. Sodium 138, potassium 4.3, chlorides 95, CO2 39, anion gap 4, BUN 28, creatinine 0.8. N-terminal proBNP is 5290. Progress note dated 01/16/2022. 56-year-old male, who is seen today in the intensive care unit, room 253. Last night, I was called by the floor nurse, that the patient was in some mild respiratory distress. Actually, I believe the patient was pretty much at baseline. Saturations were in the mid 80s. I asked for one of my ICU nurses to go. Evaluate the patient. She then called me, and we decided to move the patient to the intensive care unit. The patient was placed on BiPAP, settings of 16/8, and 100%. The patient was actually transferred to the intensive care unit, before midnight, on January 15. Currently, the patient is not receiving any IV fluids. Blood gases last night, show pO2 of 46, PCO2 of 71, and pH is 7.37. Lab data today includes a white count of 10.6, hemoglobin 14.1, hematocrit 50.3, and platelet count 189,000. Sodium 135, potassium 4.4, chlorides 92, CO2 39, anion gap 4, BUN 31, creatinine 0.79. The chest x-ray shows cardiomegaly, and pulmonary vascular congestion. Progress note dated 01/17/2022. 56-year-old male again seen in the intensive care unit, room 253. Last night, his respiratory status significantly declined, and his saturations were quite low. I recommended intubation and mechanical ventilation, but the patient refused. His blood gases showed a PaO2 of only 37, pCO2 69, and pH is 7.41. The patient's currently on BiPAP, with settings of IPAP 16, EPAP 8, and 100%. He is on Bumex at 1 mg an hour. His saturations are in the mid to high 70s. The patient's awake and alert. He does not appear to be in any significant distress. Lab data includes a white count 8.4, hemoglobin 14.2, hematocrit 50.6, and platelet count 180,000. Sodium 136, potassium 4.1, chlorides 89, CO2 38, anion gap 9, BUN 38, and creatinine 0.77. Chest x-ray shows increasing pulmonary vascular congestion. Chest x-rays essentially unchanged. The patient has severe pulmonary hypertension on echocardiogram. The nurse also mentioned that he had a patent foramen ovale. If there is a right to left shunt, that would explain some of his hypoxemia. Objective - Vital Signs Vital signs: Vital Signs Temp 99.7 F H 01/17/22 08:00 Pulse 104 H 01/17/22 10:00 Resp 22 01/17/22 10:00 BP 135/75 01/17/22 10:00 Pulse Ox 73 L 01/17/22 10:00 Intake & Output 01/16/22 01/17/22 01/17/22 18:59 06:59 18:59 Intake Total 162 46.917 Output Total 2524 2024 1125 Balance -2525 -1863 -1078.083 Weight 136.4 kg Intake: Intake, IV Titration 62 46.917 Amount Bumetanide 10 mg In 62 46.917 Dextrose 5% in Water 60 ml @ 1 MG/HR 10 mls/hr IV .Q10H [facility] Rx#:[id number] Oral 100 Output: Urine 2524 2024 1125 Other: Voiding Method Indwelling Catheter Indwelling Catheter Indwelling Catheter - Exam Mild respiratory distress, with mild conversational dyspnea. Currently, the patient's on BiPAP, at 100%. HEENT examination is grossly unremarkable. Neck supple. Full range of motion. No adenopathy thyromegaly or neck vein distention. Cardiovascular examination reveals regular rhythm rate. S1-S2 normal. No S3 or S4. No discernible murmur noted. Heart sounds are very distant. Heart rate 104 bpm. Lungs reveal scattered bilateral rhonchi and crackles. Breath sounds equal bilaterally. No wheezes. Saturations are in the mid to high 70s. Abdomen obese. Bowel sounds are noted. No tenderness. Scrotum is edematous. Extremities reveal significant bilateral lower extremity edema, which actually is above the knees. Skin is without rash or lesion. Neurologic examination is brief but nonfocal. - Labs CBC & Chem 7: 01/17/22 05:38 01/17/22 05:38 Labs: Abnormal Lab Results - Last 24 Hours (Table) 01/16/22 01/16/22 01/17/22 Range/Units 16:59 23:03 03:41 MCHC (31.0-37.0) g/dL RDW (11.5-15.5) % Lymphocytes # (1.0-4.8) k/uL D-Dimer 2.53 H (<0.60) mg/L FEU ABG pCO2 69 H (35-45) mmHg ABG pO2 37 L* (83-108) mmHg ABG HCO3 43 H* (21-25) mmol/L ABG Total CO2 45 H (19-24) mmol/L ABG O2 Saturation 64.1 L (94-97) % Sodium (137-145) mmol/L Chloride (98-107) mmol/L Carbon Dioxide (22-30) mmol/L BUN (9-20) mg/dL Glucose (74-99) mg/dL POC Glucose (mg/dL) 206 H (75-99) mg/dL 01/17/22 01/17/22 Range/Units 05:38 05:38 MCHC 28.1 L (31.0-37.0) g/dL RDW 17.7 H (11.5-15.5) % Lymphocytes # 0.3 L (1.0-4.8) k/uL D-Dimer (<0.60) mg/L FEU ABG pCO2 (35-45) mmHg ABG pO2 (83-108) mmHg ABG HCO3 (21-25) mmol/L ABG Total CO2 (19-24) mmol/L ABG O2 Saturation (94-97) % Sodium 136 L (137-145) mmol/L Chloride 89 L (98-107) mmol/L Carbon Dioxide 38 H (22-30) mmol/L BUN 38 H (9-20) mg/dL Glucose 163 H (74-99) mg/dL POC Glucose (mg/dL) (75-99) mg/dL Assessment and Plan Assessment: Shortness of breath, likely multifactorial, in part related to congestive heart failure, diffuse anasarca, and severe COPD. In addition, the patient mentions that the patient has a PFO, and possibly an Eisenmengers syndrome, which would certainly contribute to the patient's ongoing hypoxemia. Stage III COPD, with an FEV1 that is 50% of predicted. Severe pulmonary hypertension by echocardiogram. History of congestive heart failure. History of hyperlipidemia. History of hypertension. History of chronic hypoxemic respiratory failure. Obesity. Ongoing tobacco use with nicotine addiction. Plan: Plan dated 01/14/2022. The patient is currently on albuterol, and ipratropium bromide updrafts, 4 times a day and when necessary. The patient is also on Lasix at 40 mg IV push, every 12 hours, as well as Symbicort 160/4.5, 2 puffs twice a day. We will continue to follow the patient recommendations. The patient should be on no added salt diet. The patient should be weighed on a daily basis. Prognosis is guarded. Continue to follow make recommendations where appropriate. The patient didn't use BiPAP last night, twitches seemed to help. Saturations are in the mid to high 80s, he does not appear to be overwhelmingly short of breath. Plan dated 01/15/2022. The patient is currently on 15 L high flow nasal cannula, as well as a nonrebreather mask. I asked respiratory therapy to trial him on some AIRVO. His saturations are 90% on AIRVO 60 L/m and an FiO2 of 90%. The patient should go back to BiPAP when he feels able to. We will continue to follow make recommendations where appropriate. Labs, x-rays, and medications are reviewed. The patient overall prognosis remains guarded. He has significant lower extremity edema, scrotal edema, and increasing abdominal girth from fluid retention. If he shows any additional signs of deterioration, the patient will be transferred to the intensive care unit. Plan dated 01/16/2022. The patient was moved to the intensive care unit last night, before midnight. The patient was placed on BiPAP, with settings of IPAP 16, EPAP 8, and 100%. The patient is not receiving any IV fluids. Blood gases were reviewed. I did speak to the ICU nurse last night. Clinically, the patient appears to be relatively stable. He does not appear to be any worse to me today than he was yesterday. We move him to the ICU primarily because of concerns by the nursing staff on the general medical floor. We added Solu-Medrol 40 mg every 6 hours, and discontinue his Symbicort in favor of budesonide, and formoterol. We will continue to follow and make recommendations where appropriate. Labs, x-rays, and medications are all reviewed. Prognosis is certainly guarded. Plan dated 01/17/2022. The patient absolutely refused intubation and mechanical ventilation. He stated to the nurse last night, that he would only wanted be intubated should his respirations completely stop. I had a long conversation with him today. The patient wants to continue on BiPAP for the time being. He understands that he needs to keep the BiPAP in place. In addition, we increase his Bumex to 1 mg an hour. Saturations are in the mid to high 70s. Blood gases, labs, medications, and x-rays are all reviewed. The patient was given Solu-Medrol, budesonide, formoterol, and updrafts. Hopefully he'll turn around. Prognosis is very guarded. We will continue to follow and make recommendations where appropriate. Time with Patient: Greater than 30
[2022-01-17] MEDS: methylPREDNISolone SOD SUCCI 125 MG/2 ML VIAL IV SCH ×2 (12:20→18:20)
[2022-01-17 16:02] VITALS: TEMP 99.3
[2022-01-17] MEDS: BUMETANIDE 10 MG in DEXTROSE 5% IN WATER 60 ML IV SCH ×2 (16:11)
[2022-01-17] MEDS ORDERED: INSULIN ASPART (NovoLOG) 100 UNIT/ML VIAL SQ SCH (18:00)
[2022-01-17 18:19] LABS: Glucose,Whole Blood 136 mg/dL (75-99)
[2022-01-17] MEDS ORDERED: propofoL 100 ML IV ONE (19:23)
[2022-01-17 19:25] VITALS: BP 136/80; PULSE 128; RESP 21
[2022-01-17] MEDS ORDERED: EPINEPHrine 10 ML SYRINGE (0.1 MG/ML) ONE (19:46)
[2022-01-17] MEDS ORDERED: CISATRACURIUM 2 MG/ML 5 ML VIAL IV ONE ×2 (20:00→20:03)
[2022-01-17] MEDS ORDERED: CISATRACURIUM 200 MG in SODIUM CHLORIDE 0.9% 180 ML IV SCH (20:00)
[2022-01-17] MEDS ORDERED: SODIUM CHLORIDE 0.9% 1,000 ML IV ONE (20:01)
--- NOTE | 2022-01-17 20:13 | XR ---
EXAMINATION TYPE: XR chest 1V portable DATE OF EXAM: 01/17/2022 8:08 PM COMPARISON: Chest radiograph 01/17/2022 TECHNIQUE: XR chest 1V portable Frontal view of the chest. CLINICAL INDICATION:Male, 56 years old with history of Tube placement; FINDINGS: Lungs/Pleura: Similar multifocal airspace opacities most pronounced to the heart and within the right lower lung.. No evidence of pneumothorax or pleural effusion. Pulmonary vascularity: Unremarkable. Heart/mediastinum: Cardiomediastinal silhouette is unremarkable. Musculoskeletal: No acute osseous pathology. Other findings: None Lines/Tubes: Interval placement of endotracheal tube with distal tip 4.2 cm from the nicole. Nasogastric tube with its distal tip and side-port projecting under the diaphragm IMPRESSION: 1. Similar multifocal airspace opacities. 2. Interval placement of endotracheal and nasogastric tubes with tips in appropriate position.
[2022-01-17] MEDS ORDERED: CHLORHEXIDINE GLUCONATE 15 ML CUP MUCOUS MEM SCH (21:00)
--- NOTE | 2022-01-17 21:35 | P.EN ---
Code Musa Note Activated at 1945. Arrived on the scene shortly after. The patient had undergone intubation on 1938 for respiratory failure. He subsequently developed worsening bradycardia and lost his pulse. Code blue was immediately activated and ACLS protocol was initiated. The patient was given Epinephrine IVP x 1 and had ROSC within the first cycle of CPR. The case was subsequently discussed with the in detail. She noted that her did not wish to be kept alive on life- support and that no heroic measures performed. She requested that the patient be made a No Code. The patient continued to have persistent hypoxia while on the ventilator despite maximal support.
--- NOTE | 2022-01-18 07:10 | ECHOF ---
Referral Reason:Bubble study and aortic valve. Rule out VSD/ shunt MEASUREMENTS -------- HEIGHT: 172.7 cm WEIGHT: 136.1 kg BP: FINDINGS -------- Echo done 01/15/22 Limited Study to R/0 shunt. Extremely dilated RV and RA Hyperdynamic IAS with possible right to left shunt CONCLUSIONS -------- 1. Echo done 01/15/22 Limited Study to R/0 shunt. 2. Extremely dilated RV and RA Hyperdynamic IAS with possible right to left shunt 1ST PRESSMAN: Jane Al RDCS
--- NOTE | 2022-01-18 13:57 | P.DS ---
Providers Date of admission: 01/13/22 20:32 Expected date of discharge: 01/18/22 Attending physician: Celi Crum MD Consults: 01/13/22 20:34 Consult Physician Urgent Consulting Provider: [facility] Consult Reason/Comments: aechf Do you want consulting provider notified?: Yes 01/13/22 22:26 Consult Physician Urgent Consulting Provider: Amos Christine Consult Reason/Comments: bipap dependant respiratory failure Do you want consulting provider notified?: Yes 01/15/22 22:21 Consult Physician Stat Consulting Provider: Celi Crum Consult Reason/Comments: increase o2 demand Do you want consulting provider notified?: Already Contacted Primary care physician: Erich Gallardo [facility] Course: Acute diastolic CHF exacerbation with acute on chronic hypoxic and hypercapnic respiratory failure Acute on chronic right heart failure with right to left shunting HTN COPD without exacerbation Patient is a 56-year-old male with a PMH of diastolic CHF, COPD, chronic hypoxic respiratory failure on 2 L nasal cannula oxygen continuously at home, who presented to the emergency room with complaints of lower extremity edema and hypoxia. Laboratory evaluation was remarkable for CO2 34, BUN 29, proBNP of 5290, and troponin less than 0.012. The patient was placed on BiPAP in the emergency room. He was started on lasix IV BID, but on 01/15 developed worsening hypoxia prompting transfer to the ICU. While in the unit, patient had godfrey placed with 700cc output. He was subsequently started on a bumex gtt, and proceeded to have very good UOP from the start of the gtt. Unfortunately, despite good diuresis, pts oxygenation status continued to decline. By morning of 01/17, Pt was saturating high 70s on BIPAP 16/8, 100%. He had repeat echocardiogram done with bubble study, suspicious for right to left shunting. Cardiology had already started sildenafil. Despite ongoing medical therapy and good diuresis, by 01/17 PM patient was saturating in the mid 60s. At this point, I went to patient's bedside at approximately 1830, and discussed with him the seriousness of his condition. It was felt that patient was getting worse very quickly given the days progress, and that it was likely he would lose pulse overnight and require emergent intubation. I did consider the possibility that patient's right to left shunt was worsening causing the inability to correct hypoxia, and that positive pressure ventilation can exacerbate this issue. Therefore, patient was agreeable to trialing a brief transition off of BIPAP. He had clear understanding of the severity of his medical condition and the impending risks of coding. Initially, I decreased patients BIPAP settings from 16/8 to 10/5, and noted the SaO2 for ~15 min, and it remained stable on less pressure support, oscillating between 64%-68%. Next, we tried placing the patient on a combination of AirVo/NRB, but his saturation dropped to harjeet of 49%, so his BIPAP was replaced within 5-6min of removing it, and placed at 16/8, FiO2 100%; during this time, he developed worse dyspnea, cyanosis, but never lost consciousness and never developed encephalopathy. His saturations subseque ntly recovered to 60-65%. At this point, I had an extensive conversation with patient regarding code status considering his clinical situation. I mentioned that elective or emergent intubation would be necessary, likely overnight, and that it is also very risky since the medications and positioning required to intubate would likely result in losing pulse. We did discuss that overall prognosis is very poor going forward, and if he were to survive intubation, he very likely would not be able to come off the ventilator easily and would likely remain ventilator dependent. Pt did reflect understanding of this, as did his , and they wanted a few moments to discuss his code status. Unfortunately, shortly thereafter patient's oxygenation dipped greatly while he was being rolled onto a bedpan. Again, he did recover some oxygenation following this event, but then decided it was time to undergo elective intubation and remained full code. During the intubation attempt, patients oxygen dropped again, and he lost his pulse. They were able to acheive ROSC after 1 minute of CPR. My colleague, who had taken over care overnight, discussed this case again with patient's significant other and decision maker, and they transitioned the patient to DNR. A short time later, patient lost his pulse a second time, and . Significant diagnostic tests: CXRs on 01/13, 01/15, 01/16, and 01/17: cardiomegaly with pulmonary vascular congestion Echo 01/14: EF 50-55%, concentric LVH, RV severe enlargement, septal wall flattening, RVSP 76 Echo limited 01/17: hyperdynamic IAS, right to left shunting likely Patient Condition at Discharge: Good Plan - Discharge Summary Discharge Rx Participant: No New Discharge Prescriptions: No Action Ergocalciferol (Vitamin D2) [Vitamin D2] 50,000 unit PO WE Aspirin EC [Ecotrin Low Dose] 81 mg PO HS Albuterol Nebulized [Ventolin Nebulized] 2.5 mg INHALATION RT-TID Magnesium Oxide [Mag-Ox] 500 mg PO DAILY Cyanocobalamin (Vitamin B-12) [Vitamin B-12] 1,000 mcg PO DAILY carvediloL 25 mg PO BID hydroCHLOROthiazide 50 mg PO DAILY Multivitamins, Thera [Multivitamin (formulary)] 1 tab PO DAILY Fish Oil/Dha/Epa [Fish Oil 1,200 mg Fish Oil] 1 cap PO BID Cholecalciferol [Vitamin D3 (125 Mcg = 5000 Iu)] 125 mcg PO DAILY Ascorbic Acid [Vitamin C] 1,000 mg PO BID Discharge Medication List Albuterol Nebulized [Ventolin Nebulized] 2.5 mg INHALATION RT-TID 07/09/17 [History] Aspirin EC [Ecotrin Low Dose] 81 mg PO HS 07/09/17 [History] Cyanocobalamin (Vitamin B-12) [Vitamin B-12] 1,000 mcg PO DAILY 07/09/17 [History] Ergocalciferol (Vitamin D2) [Vitamin D2] 50,000 unit PO WE 07/09/17 [History] Magnesium Oxide [Mag-Ox] 500 mg PO DAILY 07/09/17 [History] carvediloL 25 mg PO BID 10/28/18 [History] Multivitamins, Thera [Multivitamin (formulary)] 1 tab PO DAILY 01/15/19 [History] hydroCHLOROthiazide 50 mg PO DAILY 01/15/19 [History] Ascorbic Acid [Vitamin C] 1,000 mg PO BID 01/13/22 [History] Cholecalciferol [Vitamin D3 (125 Mcg = 5000 Iu)] 125 mcg PO DAILY 01/13/22 [History] Fish Oil/Dha/Epa [Fish Oil 1,200 mg Fish Oil] 1 cap PO BID 01/13/22 [History] Follow up Appointment(s)/Referral(s): Erich Rodriguez MD [Primary Care Provider] - 1-2 days Discharge Disposition: - Preliminary Cause of Preliminary Cause of : Acute on chronic right heart failure
== END 2022-01-17 21:00 | disposition expired | DRG 291 ==
LOC: EC 18:14 → 3SCARD 20:32 → 2SICU 01-15 22:36
PROVIDERS: ADMIT Internal Medicine; ATTEND Internal Medicine
PROC: 5A0935A Assistance with Respiratory Ventilation, Less than 24 Consecutive Hours, High Flow/Velocity Cannula (ICD-10-PCS; 2022-01-13)
PROC: 3E033XZ Introduction of Vasopressor into Peripheral Vein, Percutaneous Approach (ICD-10-PCS; principal; 2022-01-17)
PROC: 0BH17EZ Insertion of Endotracheal Airway into Trachea, Via Natural or Artificial Opening (ICD-10-PCS; principal; 2022-01-17)
PROC: 5A12012 Performance of Cardiac Output, Single, Manual (ICD-10-PCS; principal; 2022-01-17)
PROC: 5A1935Z Respiratory Ventilation, Less than 24 Consecutive Hours (ICD-10-PCS; principal; 2022-01-17)
PROC: 0D9670Z Drainage of Stomach with Drainage Device, Via Natural or Artificial Opening (ICD-10-PCS; 2022-01-17)
PROC: 5A09357 Assistance with Respiratory Ventilation, Less than 24 Consecutive Hours, Continuous Positive Airway Pressure (ICD-10-PCS; 2022-01-17)
DX: I11.0 Hypertensive heart disease with heart failure (principal); I50.33 Acute on chronic diastolic (congestive) heart failure; J96.21 Acute and chronic respiratory failure with hypoxia; J96.22 Acute and chronic respiratory failure with hypercapnia; J44.1 Chronic obstructive pulmonary disease with (acute) exacerbation; Z68.42 Body mass index [BMI] 45.0-49.9, adult; Q21.1 Atrial septal defect; I27.83 Eisenmenger's syndrome; I34.0 Nonrheumatic mitral (valve) insufficiency; R00.1 Bradycardia, unspecified; I46.9 Cardiac arrest, cause unspecified; I50.82 Biventricular heart failure; F17.210 Nicotine dependence, cigarettes, uncomplicated; E66.01 Morbid (severe) obesity due to excess calories; E78.5 Hyperlipidemia, unspecified; Z66 Do not resuscitate; R33.9 Retention of urine, unspecified; Z79.899 Other long term (current) drug therapy; Z91.11 Patient's noncompliance with dietary regimen; Z99.81 Dependence on supplemental oxygen; Z87.01 Personal history of pneumonia (recurrent); Z82.49 Family history of ischemic heart disease and other diseases of the circulatory system
CPT/HCPCS: 36415; 36600; 71045; 80048; 80053; 82805; 83605; 83735; 83880; 84484; 85025; 85379; 85610; 85730; 92950; 93005; 93306; 93308; 94002; 94640; 94660; 94760; 96374; 99285